=== PATIENT | female | born 1950 | race Caucasian/White ===

== ENCOUNTER 2017-11-17 17:41 | Observation (INO) | payer OTHER ==
[~2017-11-17] VITALS: Ht 152.4 cm; Wt 89.8 kg
[~2017-11-17 17:41] MED LIST: ACEDIPPM; AMLO5 PO; ANASTROZOLE PO; ASPI325EC PO; ASPI81CH PO; ASPI81EC; Acetaminophen650 M1 PO; Anastrozole1 GM PO; BACL10 PO; BETA.05TCA TOP; CIPR250 PO; DULO60 PO; ERGO50000 PO; EYE DROPS LEFTEYE; EZET10 PO; FENO160; FENT25TP TOP; FENT50TP TOP; FISH1000; FLUO20; GABA300 PO; HYDACE10B PO; HYDACE5; HYDACE5 PO; HYDPAM25 PO; IBUP400 PO; METF500; METR500 PO; MULVITA; NAPR500EC PO; NITR100CA PO; OXYACE5T PO; OXYC10TA19 PO; OXYC15ER PO; PREG75 PO; Percocet 5-3251 EACH PO; Prozac20 MG; QUET25 PO; SULTRIDS PO; Silvadene20 GM TOP; TELM40 PO; TIZANIDINE HCL4 MG PO; TRAZ50 PO; UBID100; VALS80; VITB100; Zanaflex4 M1 PO; Zofran Odt8 MG SL
[2017-11-17 18:37] LABS: BASOPHILS ABSOLUTE AUTO 0.08 K/mm3 (0.00-0.23); BASOPHILS PERCENT AUTO 1 % (0-2); EOSINOPHILS PERCENT AUTO 3 % (0-6); Hematocrit 31.8 % (33.0-51.0); Hemoglobin 9.6 g/dL (11.5-16.0); IMMATURE GRAN ABSOLUTE AUTO 0.11 K/mm3 (0.00-0.10); IMMATURE GRAN PERCENT AUTO 1 % (0-1); LYMPHOCYTES ABSOLUTE AUTO 2.22 K/mm3 (0.84-5.20); LYMPHOCYTES PERCENT AUTO 14 % (21-46); MONOCYTES ABSOLUTE AUTO 1.08 K/mm3 (0.16-1.47); MONOCYTES PERCENT AUTO 7 % (4-13); Mean Corpuscular HGB 26.5 pg (26.0-34.0); Mean Corpuscular HGB Conc 30.2 g/dL (31.5-36.5); Mean Corpuscular Volume 88 fL (80-100); Mean Platelet Volume 10.1 fL (9.1-12.4); NEUTROPHILS ABSOLUTE AUTO 11.93 K/mm3 (1.96-9.15); NEUTROPHILS PERCENT AUTO 76 % (41-73); Platelet Count 255 K/mm3 (150-400); RDW Coefficient Variation 15.4 % (11.7-14.2); RDW Standard Deviation 48.9 fL (35.1-46.3); Red Blood Cell Count 3.62 M/mm3 (3.80-5.20); White Blood Cell Count 15.82 K/mm3 (4.00-11.30)
[2017-11-17 18:49] LABS: Alanine Aminotransfer (ALT/SGP 23 U/L (12-78); Albumin, Blood 3.6 g/dL (3.4-5.0); Albumin/Globulin Ratio 1.1 (0.8-1.8); Alk Phos 98 U/L (50-136); Anion Gap 5 mmol/L (6-16); Aspartate Aminotrans (AST/SGOT 22 U/L (12-37); Bilirubin, Total 0.2 mg/dL (0.1-1.0); Blood Urea Nitrogen 25 mg/dL (8-24); Bun/Creatinine Ratio 15.9 (12.0-20.0); CO2, Blood 25 mmol/L (21-32); Calcium, Blood 8.8 mg/dL (8.5-10.1); Chloride, Blood 108 mmol/L (98-108); Creatinine, Blood 1.57 mg/dL (0.40-1.00); Ethanol (Alcohol), Blood, Med <3 mg/dL; Globulin, Blood 3.4 g/dL (2.2-4.0); Glomerular Filtration Rate 35 (60-); Glucose, Blood 122 mg/dL (70-99); Potassium, Blood 5.1 mmol/L (3.5-5.5); Sodium, Blood 138 mmol/L (136-145)
[2017-11-17 19:44] LABS: Source, Urine Clean Catch
[2017-11-17 19:54] LABS: Bilirubin, Urine Neg (Neg); Blood, Urine 2+ (Neg); Glucose Qualitative, Urine Neg (Neg); Ketones, Urine Neg (Neg); Leukocyte Esterase, Urine 2+ (Neg); Nitrite, Urine Neg (Neg); Protein, Urine 2+ (Neg); Urobilinogen, Urine NORM (Normal)
[2017-11-17 20:01] LABS: Appearance, Urine Hazy (Clear); Color, Urine Yellow (P-Yellow)
[2017-11-17 20:03] LABS: Amorphous Light (0-Heavy); Bacteria Many /hpf; Squamous Epithelial Cells Few /hpf (Few); White Blood Cells, Urine 50-100 /hpf (0-5)
[2017-11-18 05:29] LABS: BASOPHILS ABSOLUTE AUTO 0.06 K/mm3 (0.00-0.23); BASOPHILS PERCENT AUTO 0 % (0-2); EOSINOPHILS ABSOLUTE AUTO 0.45 K/mm3 (0.00-0.68); EOSINOPHILS PERCENT AUTO 3 % (0-6); Hematocrit 30.1 % (33.0-51.0); Hemoglobin 9.2 g/dL (11.5-16.0); IMMATURE GRAN ABSOLUTE AUTO 0.06 K/mm3 (0.00-0.10); IMMATURE GRAN PERCENT AUTO 0 % (0-1); LYMPHOCYTES ABSOLUTE AUTO 2.57 K/mm3 (0.84-5.20); LYMPHOCYTES PERCENT AUTO 19 % (21-46); MONOCYTES ABSOLUTE AUTO 1.04 K/mm3 (0.16-1.47); MONOCYTES PERCENT AUTO 8 % (4-13); Mean Corpuscular HGB 26.4 pg (26.0-34.0); Mean Corpuscular HGB Conc 30.6 g/dL (31.5-36.5); Mean Corpuscular Volume 86 fL (80-100); Mean Platelet Volume 9.8 fL (9.1-12.4); NEUTROPHILS ABSOLUTE AUTO 9.59 K/mm3 (1.96-9.15); NEUTROPHILS PERCENT AUTO 70 % (41-73); Platelet Count 206 K/mm3 (150-400); RDW Coefficient Variation 15.5 % (11.7-14.2); RDW Standard Deviation 48.7 fL (35.1-46.3); Red Blood Cell Count 3.49 M/mm3 (3.80-5.20); White Blood Cell Count 13.77 K/mm3 (4.00-11.30)
[2017-11-18 06:03] LABS: Bun/Creatinine Ratio 19.6 (12.0-20.0); Calcium, Blood 8.1 mg/dL (8.5-10.1); Creatinine, Blood 1.12 mg/dL (0.40-1.00)
[2017-11-19] MEDS ORDERED: DULO60 PO (15:23)
[2017-11-19] MEDS ORDERED: FENTANYL1 EAC1 TOP (15:24)
[2017-11-19] MEDS ORDERED: Synthroid25 MCG PO (15:25)
[2017-11-19] MEDS ORDERED: Bactrim Ds Tab1 EACH PO (15:26)
== END 2017-11-19 16:10 | disposition home or self-care (01) ==
LOC: ER 17:41 → MEDS 17:42 → ENPENDDIS 11-19 14:00 → MEDS 11-19 16:10
PROVIDERS: Emergency Medicine; Hospitalist
DX: G92 Toxic encephalopathy (principal); N39.0 Urinary tract infection, site not specified; B96.20 Unspecified Escherichia coli [E. coli] as the cause of diseases classified elsewhere; G89.4 Chronic pain syndrome; I10 Essential (primary) hypertension; M54.9 Dorsalgia, unspecified; N28.9 Disorder of kidney and ureter, unspecified; E11.9 Type 2 diabetes mellitus without complications; E78.5 Hyperlipidemia, unspecified; E03.9 Hypothyroidism, unspecified; T50.995A Adverse effect of other drugs, medicaments and biological substances, initial encounter; Z87.442 Personal history of urinary calculi; Z88.0 Allergy status to penicillin; Z88.1 Allergy status to other antibiotic agents; Z88.7 Allergy status to serum and vaccine; Z88.8 Allergy status to other drugs, medicaments and biological substances; Z79.1 Long term (current) use of non-steroidal anti-inflammatories (NSAID); Z79.891 Long term (current) use of opiate analgesic; Z79.899 Other long term (current) drug therapy
CPT/HCPCS: 36415; 80048; 80053; 81001; 82947; 84443; 85025; 87077; 87086; 87186; 96361; 96365; 96366; 96372; 96375; 96376; 99285; G0378; G0480; J1650; J2185; J2310; J3480; J7030; P9612

== ENCOUNTER 2018-05-05 21:27 | Emergency (ER) | payer OTHER ==
[~2018-05-05] VITALS: Ht 152.4 cm; Wt 88.5 kg
[~2018-05-05 21:27] MED LIST changes: +Bactrim Ds Tab1 EACH PO; +FENTANYL1 EAC1 TOP; +Synthroid25 MCG PO
[2018-05-05] MEDS ORDERED: Fentanyl1 EAC1 TD (23:24)
[2018-05-05] MEDS ORDERED: PREG75 PO (23:26)
[2018-05-05] MEDS ORDERED: OXYC10TA19 PO (23:26)
[2018-05-05] MEDS ORDERED: BACL10 PO (23:27)
[2018-05-05] MEDS ORDERED: TELM40 PO (23:28)
== END 2018-05-06 04:37 | disposition short-term general hospital (02) ==
LOC: ER 21:27
DX: S32.019A Unspecified fracture of first lumbar vertebra, initial encounter for closed fracture (principal); S00.03XA Contusion of scalp, initial encounter; Z88.0 Allergy status to penicillin; Z88.1 Allergy status to other antibiotic agents; Z88.8 Allergy status to other drugs, medicaments and biological substances; Z88.7 Allergy status to serum and vaccine; Z79.899 Other long term (current) drug therapy; Z87.442 Personal history of urinary calculi; Z87.891 Personal history of nicotine dependence; W01.0XXA Fall on same level from slipping, tripping and stumbling without subsequent striking against object, initial encounter
CPT/HCPCS: 70450; 72070; 72100; 72125; 72128; 73502; 96374; 96375; 96376; 99285-25; J1170; J1630; J2405; J3010

== ENCOUNTER 2018-06-16 11:40 | Emergency (ER) | payer OTHER ==
[~2018-06-16] VITALS: Ht 165.1 cm; Wt 108.9 kg
[~2018-06-16 11:40] MED LIST changes: +Fentanyl1 EAC1 TD; +PREG100 PO
[2018-06-16 12:46] LABS: BASOPHILS ABSOLUTE AUTO 0.03 K/mm3 (0.00-0.23); BASOPHILS PERCENT AUTO 0 % (0-2); EOSINOPHILS PERCENT AUTO 1 % (0-6); Hematocrit 27.7 % (33.0-51.0); Hemoglobin 8.2 g/dL (11.5-16.0); IMMATURE GRAN ABSOLUTE AUTO 0.04 K/mm3 (0.00-0.10); IMMATURE GRAN PERCENT AUTO 1 % (0-1); LYMPHOCYTES ABSOLUTE AUTO 1.61 K/mm3 (0.84-5.20); LYMPHOCYTES PERCENT AUTO 20 % (21-46); MONOCYTES ABSOLUTE AUTO 0.99 K/mm3 (0.16-1.47); MONOCYTES PERCENT AUTO 13 % (4-13); Mean Corpuscular HGB 25.2 pg (26.0-34.0); Mean Corpuscular HGB Conc 29.6 g/dL (31.5-36.5); Mean Corpuscular Volume 85 fL (80-100); Mean Platelet Volume 9.7 fL (9.1-12.4); NEUTROPHILS ABSOLUTE AUTO 5.14 K/mm3 (1.96-9.15); NEUTROPHILS PERCENT AUTO 65 % (41-73); Platelet Count 278 K/mm3 (150-400); RDW Coefficient Variation 15.2 % (11.7-14.2); RDW Standard Deviation 46.6 fL (35.1-46.3); Red Blood Cell Count 3.26 M/mm3 (3.80-5.20); White Blood Cell Count 7.91 K/mm3 (4.00-11.30)
[2018-06-16 12:57] LABS: Alanine Aminotransfer (ALT/SGP 17 U/L (12-78); Albumin, Blood 2.9 g/dL (3.4-5.0); Albumin/Globulin Ratio 0.7 (0.8-1.8); Alk Phos 95 U/L (50-136); Anion Gap 8 mmol/L (6-16); Aspartate Aminotrans (AST/SGOT 24 U/L (12-37); Bilirubin, Total 0.2 mg/dL (0.1-1.0); Blood Urea Nitrogen 17 mg/dL (8-24); Bun/Creatinine Ratio 21.2 (12.0-20.0); CO2, Blood 30 mmol/L (21-32); Calcium, Blood 8.6 mg/dL (8.5-10.1); Chloride, Blood 102 mmol/L (98-108); Globulin, Blood 4.3 g/dL (2.2-4.0); Glomerular Filtration Rate >60 (60-); Glucose, Blood 102 mg/dL (70-99); Potassium, Blood 4.9 mmol/L (3.5-5.5); Sodium, Blood 140 mmol/L (136-145); Total Protein, Blood 7.2 g/dL (6.4-8.2)
[2018-06-16 14:09] LABS: Influenza A Negative (NEGATIVE); Influenza B Negative (NEGATIVE)
[2018-06-16 14:22] LABS: Bilirubin, Urine Neg (Neg); Blood, Urine Neg (Neg); Glucose Qualitative, Urine Neg (Neg); Ketones, Urine Neg (Neg); Leukocyte Esterase, Urine Neg (Neg); Nitrite, Urine Neg (Neg); Protein, Urine 2+ (Neg); Urobilinogen, Urine NORM (Normal)
[2018-06-16 14:38] LABS: Appearance, Urine Clear (Clear); Color, Urine Yellow (P-Yellow)
[2018-06-16 14:40] LABS: Bacteria Few /hpf; Squamous Epithelial Cells Mod /hpf (Few)
[2018-06-19] MEDS ORDERED: HYDMOR2 PO (15:19)
[2018-06-20] MEDS ORDERED: NITR100CA PO (16:24)
== END 2018-06-16 17:21 | disposition home or self-care (01) ==
LOC: ER 11:40
PROVIDERS: Emergency Medicine
DX: M54.5 Low back pain (principal); R53.1 Weakness; E11.9 Type 2 diabetes mellitus without complications; Z88.1 Allergy status to other antibiotic agents; Z88.0 Allergy status to penicillin; Z88.8 Allergy status to other drugs, medicaments and biological substances; Z88.7 Allergy status to serum and vaccine; Z79.899 Other long term (current) drug therapy
CPT/HCPCS: 36415; 71046; 80053; 81001; 83605; 85025; 87086; 87804; 96365; 96375; 99284-25; J0696; J1170

== ENCOUNTER 2018-07-19 15:11 | Inpatient (IN) | payer OTHER ==
[~2018-07-19] VITALS: Ht 152.4 cm; Wt 86.4 kg
[~2018-07-19 15:11] MED LIST changes: +ANTI-ITCH 1%-0.28 GM TOP; +Acetaminophen325 M1 PO; +BENGAY113 GM TOP; +BISA10S PR; +CALCIUM 600 +1 EA11 PO; +CALDYPHEN CLEA TOP; +CYAN500 PO; +Colace100 MG PO; -Fentanyl1 EAC1 TD; +Fentanyl1 EAC1 TOP; +Ferrous Sulfat325 MG PO; +HYDMOR2 PO; +Nystatin15 GM TOP
[2018-07-19 16:00] LABS: Hematocrit 28.1 % (33.0-51.0); Hemoglobin 8.1 g/dL (11.5-16.0); Mean Corpuscular HGB 23.7 pg (26.0-34.0); Mean Corpuscular HGB Conc 28.8 g/dL (31.5-36.5); Mean Corpuscular Volume 82 fL (80-100); Mean Platelet Volume 9.5 fL (9.1-12.4); Platelet Count 359 K/mm3 (150-400); RDW Standard Deviation 48.7 fL (35.1-46.3); Red Blood Cell Count 3.42 M/mm3 (3.80-5.20)
[2018-07-19 16:34] LABS: Albumin, Blood 2.9 g/dL (3.4-5.0); Albumin/Globulin Ratio 0.7 (0.8-1.8); BAND PERCENT MAN 11 % (0-8); BASOPHILS PERCENT MAN 0 % (0-2); Bilirubin, Total 0.4 mg/dL (0.1-1.0); Bun/Creatinine Ratio 14.4 (12.0-20.0); Calcium, Blood 9.5 mg/dL (8.5-10.1); Creatinine, Blood 1.8 mg/dL (0.40-1.00); EOSINOPHILS PERCENT MAN 0 % (0-6); Globulin, Blood 4.1 g/dL (2.2-4.0); LYMPHOCYTES ABSOLUTE MAN 2.44 K/mm3 (0.84-5.20); LYMPHOCYTES PERCENT MAN 9 % (21-46); METAMYELOCYTE ABSOLUTE MAN 0.27 K/mm3 (0.00-0.00); METAMYELOCYTE PERCENT MAN 1 % (0-0); MONOCYTES ABSOLUTE MAN 0.81 K/mm3 (0.16-1.47); MONOCYTES PERCENT MAN 3 % (4-13); NEUTROPHILS ABSOLUTE MAN 23.66 K/mm3 (1.96-9.15); Potassium, Blood 5.1 mmol/L (3.5-5.5); SEG NEUTROPHILS PERCENT MAN 76 % (41-73); TOTAL CELLS COUNTED 100
[2018-07-19 17:55] LABS: Source, Urine Catheter
[2018-07-19 18:15] LABS: Blood, Urine 1+ (Neg); Glucose Qualitative, Urine Neg (Neg); Ketones, Urine 1+ (Neg); Leukocyte Esterase, Urine 3+ (Neg); Nitrite, Urine Neg (Neg); Protein, Urine 2+ (Neg); Specific Gravity, Urine 1.015 (1.003-1.022); Urobilinogen, Urine NORM (Normal)
[2018-07-19 18:35] LABS: Appearance, Urine Cloudy (Clear); Bilirubin, Urine 1+ (Neg); Color, Urine Yellow (P-Yellow)
[2018-07-19 18:36] LABS: White Blood Cells, Urine 25-50 /hpf (0-5)
[2018-07-19 18:37] LABS: Amorphous Light (0-Heavy); Bacteria Many /hpf; Squamous Epithelial Cells Many /hpf (Few)
--- NOTE | 2018-07-20 06:00 | NUR ---
SHIFT SUMMARY. ASSUMED CARE OF PT AT 1939. PT WOULD RESPOND TO VERBAL STIMULI AND TOUCH. PT'S VS WERE STABLE. FLUIDS AND ANTIBIOITCS WERE STARTED PER ORDERS. TELE WAS PLACED, SR IN THE 70'S PER NEW VEHICLE SALES CONSULTANT, BP 107/57. L/S CLEAR T/O. PT ON 2L NC W/STATS >90%, PT IS NOT NORMALLY ON O2 AT HOME. BT PRESENT AND HYPERACTIVE, ABD IS SOFT AND NONTENDER TO PALP. 1+ PITTING EDEMA PRESENT TO THE BLE. APROX 2 HOURS AFTER ARRIVING TO THE UNIT THE PT STARTED TO COMPLAIN OF ABD DISCOMFORT, SHE WAS BECOMING MORE ALERT. PT STATED SHE FELT LIKE SHE HAD TO VOID BUT WAS UNABLE TO ON THE BEDPAN. BLADDER SCAN WAS DONE AND SHOWED >700 MLS. PMD WAS CALLED AND ORDERS OBTAINED FOR A STRAIGHT CATH. THIS WAS DONE, PT TOLERATED WELL. A WOUND VAC WAS PLACED PER PMD'S ORDERS TO A WOUND ON THE PT'S BACK, CULTURES WERE OBTAINED AND PICTURES TAKEN. PT COMPLAINS OF EXTREAME PAIN WITH ANY TYPE OF MOVEMENT. PT WAS MEDICATED PER EMAR. PT DENIES ANY CHEST PAIN/PRESSURE, N/V OR SOB. CALL LIGHT IS IN REACH, BED IS LOCKED AND LOW WILL CONTINUE TO MONITOR UNTIL REPORT IS GIVEN.
[2018-07-20 06:19] LABS: Alanine Aminotransfer (ALT/SGP 12 U/L (12-78); Albumin, Blood 2.3 g/dL (3.4-5.0); Albumin/Globulin Ratio 0.6 (0.8-1.8); Alk Phos 79 U/L (50-136); Anion Gap 8 mmol/L (6-16); Aspartate Aminotrans (AST/SGOT 19 U/L (12-37); Bilirubin, Total 0.2 mg/dL (0.1-1.0); Blood Urea Nitrogen 21 mg/dL (8-24); Bun/Creatinine Ratio 20.6 (12.0-20.0); CO2, Blood 26 mmol/L (21-32); Calcium, Blood 8.3 mg/dL (8.5-10.1); Chloride, Blood 107 mmol/L (98-108); Creatinine, Blood 1.02 mg/dL (0.40-1.00); Globulin, Blood 3.6 g/dL (2.2-4.0); Glomerular Filtration Rate 57 (60-); Glucose, Blood 99 mg/dL (70-99); Potassium, Blood 4.3 mmol/L (3.5-5.5); Sodium, Blood 141 mmol/L (136-145); Total Protein, Blood 5.9 g/dL (6.4-8.2); Vancomycin, Random 15.5 ug/mL
[2018-07-20 07:43] LABS: BASOPHILS ABSOLUTE AUTO 0.03 K/mm3 (0.00-0.23); BASOPHILS PERCENT AUTO 0 % (0-2); EOSINOPHILS ABSOLUTE AUTO 0.32 K/mm3 (0.00-0.68); EOSINOPHILS PERCENT AUTO 2 % (0-6); Hematocrit 24.7 % (33.0-51.0); Hemoglobin 7.1 g/dL (11.5-16.0); IMMATURE GRAN ABSOLUTE AUTO 0.09 K/mm3 (0.00-0.10); IMMATURE GRAN PERCENT AUTO 1 % (0-1); LYMPHOCYTES ABSOLUTE AUTO 0.85 K/mm3 (0.84-5.20); LYMPHOCYTES PERCENT AUTO 6 % (21-46); MONOCYTES ABSOLUTE AUTO 0.73 K/mm3 (0.16-1.47); MONOCYTES PERCENT AUTO 5 % (4-13); Mean Corpuscular HGB 23.7 pg (26.0-34.0); Mean Corpuscular HGB Conc 28.7 g/dL (31.5-36.5); Mean Corpuscular Volume 83 fL (80-100); Mean Platelet Volume 9.6 fL (9.1-12.4); NEUTROPHILS ABSOLUTE AUTO 12.38 K/mm3 (1.96-9.15); NEUTROPHILS PERCENT AUTO 86 % (41-73); Platelet Count 262 K/mm3 (150-400); RDW Coefficient Variation 15.8 % (11.7-14.2); RDW Standard Deviation 48.1 fL (35.1-46.3); Red Blood Cell Count 2.99 M/mm3 (3.80-5.20)
--- NOTE | 2018-07-20 12:45 | NUR ---
POSITIVE BLOOD CULTURES This RN called provider to ensure that she is aware of positive blood cultures and current antibiotic regimen. No additional orders.
--- NOTE | 2018-07-20 14:59 | NUR ---
[facility] Assumed care of pt at 0700. Report received from Tenisha ORELLANA. Pt on 2 LPM NC. States she does not wear O2 at home. Pt has wound vac to spine, mid-back. Draining serosanguinous fluid. Dressing C/D/I. Pt refused repositioning this AM. Educated that repositioning is necessary to prevent pressure injury. Pt continued to refuse due to pain. This RN discussed pt's pain with Dr Alvarez, new orders given. After giving pt 2 mg of dilaudid PO, this RN told pt she had more pain medication available. Pt stated she was willing to try repositioning and bed bath; pt declined additional pain medication. Pt was weak and painful for these activities. After repositioning and bed bath, pt was offerred pain meds again. She made a goal to wait until 1615 before requesting more medication. She states she would also like her baclofen at this time. Bed in lowest position. Call light in reach. Pt denies need at this time.
--- NOTE | 2018-07-20 15:27 | NUR ---
TEMPERATURE INCREASE Pt has had a temperature increase since beginning of transfusion. sales support advisor Dionna ruiz. Decision made to continue transfusion because pt was febrile earlier during this shift and there are no additional signs of transfusion reaction at this time.
--- NOTE | 2018-07-20 19:24 | NUR ---
SHIFT SUMMARY No acute changes since last note. Pt has refused repositions since being repositioned on left side around 1330, stating "I am finally comfortable and my pain is tolerable". Report given to Tenisha ORELLANA.
--- NOTE | 2018-07-20 22:48 | NUR ---
PM NOTE. ASSUMED CARE OF PT APROX 1900, PT IS A&Ox4, PLEASENT AND COOPERATEIVE WITH CARE. PT IS DIAPHORETIC AND PALE, PT COMPLAINS OF SEVERE PAIN OF 9/10 AT HER BACK AND ABD. PT IS FEBRILE AT 103.1, TYLENOL WAS GIVEN PER EMAR AND TEMP IS NOW 100.0. TELE INTACT, SR IN THE 80'S PER BUSINESS CONTINUITY PLANNER WITH NO EVENTS, BP 132/52. L/S CLEAR T/O DIM IN THE BASES. NC ON 2L WITH STATS >90%. ABD IS FRIM, SLIGHTLY DISTENED AND TENDER TO PALP IN THE LOWER ABD AREA. BLADDER SCAN WAS DONE, 992 MLS WAS FOUND, STRAIGHT CATH WAS DONE AND 1275 MLS WAS DRAINED. PT STILL STATES SHE HAS SEVERE ABD PAIN IN THAT AREA. 1+ EDEMA TO THE PT'S BLE. WOUND VAC PRESENT AND PATENT TO THE PT'S MID BACK. CALL LIGHT IN REACH, BED IS LOCKED AND LOW WILL CONTINUE TO MONITOR.
--- NOTE | 2018-07-21 05:23 | NUR ---
SHIFT SUMMARY. NO ACUTE CHANGES NOTED, PT'S PAIN IS BETTER CONTROLLED AT THIS TIME, PT DOES NOT APPEAR TO BE DROWSY OR OBTUNDED, PT WAS ABLE TO GET A FEW HOURS OF SLEEP THIS SHIFT. PT HAS TRIED TO VOID MULTIPLE TIMES SINCE THE STRAIGHT CATH BUT HAS BEEN UNSUCESSFUL. PT'S VS HAVE BEEN STABLE, PT DENIES ANY CHEST PAIN/PRESSURE, N/V OR SOB. CALL LIGHT IS IN REACH, BED IS LOCKED AND LOW, WILL CONTINUE TO MONITOR UNTIL REPORT IS GIVEN TO ONCOMING RN.
[2018-07-21 05:56] LABS: BASOPHILS ABSOLUTE AUTO 0.03 K/mm3 (0.00-0.23); BASOPHILS PERCENT AUTO 0 % (0-2); EOSINOPHILS ABSOLUTE AUTO 0.37 K/mm3 (0.00-0.68); EOSINOPHILS PERCENT AUTO 3 % (0-6); Hematocrit 30.9 % (33.0-51.0); IMMATURE GRAN ABSOLUTE AUTO 0.15 K/mm3 (0.00-0.10); IMMATURE GRAN PERCENT AUTO 1 % (0-1); LYMPHOCYTES PERCENT AUTO 8 % (21-46); MONOCYTES ABSOLUTE AUTO 0.87 K/mm3 (0.16-1.47); MONOCYTES PERCENT AUTO 6 % (4-13); Mean Corpuscular HGB 23.6 pg (26.0-34.0); Mean Corpuscular HGB Conc 29.1 g/dL (31.5-36.5); Mean Corpuscular Volume 81 fL (80-100); NEUTROPHILS ABSOLUTE AUTO 11.71 K/mm3 (1.96-9.15); NEUTROPHILS PERCENT AUTO 82 % (41-73); Platelet Count 287 K/mm3 (150-400); RDW Coefficient Variation 15.8 % (11.7-14.2); RDW Standard Deviation 46.1 fL (35.1-46.3); Red Blood Cell Count 3.81 M/mm3 (3.80-5.20); White Blood Cell Count 14.33 K/mm3 (4.00-11.30)
[2018-07-21 06:20] LABS: Anion Gap 6 mmol/L (6-16); Blood Urea Nitrogen 16 mg/dL (8-24); Bun/Creatinine Ratio 19.2 (12.0-20.0); CO2, Blood 29 mmol/L (21-32); Calcium, Blood 8.7 mg/dL (8.5-10.1); Chloride, Blood 105 mmol/L (98-108); Creatinine, Blood 0.84 mg/dL (0.40-1.00); Glomerular Filtration Rate >60 (60-); Glucose, Blood 134 mg/dL (70-99); Potassium, Blood 3.9 mmol/L (3.5-5.5); Sodium, Blood 140 mmol/L (136-145)
--- NOTE | 2018-07-21 07:47 | NUR ---
NURSING PCU DAYSHIFT: Assumed care of pt at approx 0700. A/O, pleasant, cooperative w/care though needs encouragement to participate in ADL's. C/O 8/10 back pain, treating w/meds and positioning. Skin is diaphoretic/clammy, redness noted to groin and skin folds, wound vac in place to surgical site from recent back surgery, set to suction, heels red w/mepilex in place. Tele in place, NSR, no c/o CP/pressure, BP stable prior to a.m. meds, 1+ BLE edema. L/S cta t/o, O2 sat low 90's on 1L NC, denies dyspnea, no noted cough. Abd moderately distended which pt states is normal, tender, BT+, c/o urine retention and requires straight cath as needed. PIV x1, NS TKO. Pt denies any current needs or questions regarding plan of care. Call light in reach and pt is able to use w/o difficulty. Awaiting rounding from PMD, will discuss possible need for PT/OT. Will cont to encourage pt to participate in ADL's, treat pain w/meds as ordered and repositioning. No s/s of acute distress at this time, cont to monitor for changes, call light in reach.
[2018-07-21 15:36] LABS: Vancomycin, Trough 10.3 ug/mL (5.0-10.0)
--- NOTE | 2018-07-21 17:27 | NUR ---
NURSING PCU DAYSHIFT SUMMARY: Pt has been tired/lethargic t/o the shift. Seen by PMD, new d/o received. After a.m. assessment, pt began to c/o chills, temp result of 103.8 at that time w/HR increase to 90's. PMD notified by CN, new d/o received. NS x1 liter infused at 200cc/hr, oral tylenol administered. D/O for MRI received, form completed, pt transported via gurney to imaging though was unable to complete study d/t back discomfort even w/pain management w/medication. Returned to room and assisted back to bed. Pt is afebrile at this time and is resting comfortably. NS currently infusing at 125cc/hr x1 liter. Straight cath and attends change completed. ID consult called and message left on voicemail. Labs scheduled for a.m. Pt denies any current questions/needs, call light in reach, cont to monitor until rpt is given to NOC RN.
--- NOTE | 2018-07-21 23:26 | NUR ---
PM NOTE. ASSUMED CARE OF PT APROX 1900. PT IS A&Ox4. PT'S WOUND VAC DRESSING WAS CHANGED AND A VIDAL PLACED PER PROVIDERS ORDERS. WOUND MEASURMENTS ARE 10CM DEEP 2.5 CM WIDE. PT COMPLAINS OF SEVERE PAIN THAT IS NOT CONROLLED BY THE NARCOTIC PAIN MEDICATIONS, THIS RN EDUATED THE PT ON NON-PHARMA PAIN MANAGEMENT TECHNIQUES SUCH DEEP BREATHING, DISTRACTION, HEAT/ICE, ETC. PT STATED "THOSE DON'T WORK FOR ME." TELE INTACT, SR IN THE 80'S WITH NO CARDIAC EVENTS SINCE ADMIT. BP 112/53, PT TEMP WAS 102.2, PT WAS MEDICATED PER EMAR TEMP CURRENTLY 99.1. 1+ EDEMA PRESENT TO THE PT'S BLE. L/S CLEAR T/O. PT ON 2 L NC WITH STATS >90%. BT PRESENT AND HYPERACTIVE IN ALL QUADRANTS. ABD IS FIRM SLIGHTLY DISTENDED AND TENDER TO PALP. PT HAD NOT HAD A BM SINCE ADMIT. CALL LIGHT IS IN REACH, BED IS LOCKED AND LOW, WILL CONTINUE TO MONITOR.
[2018-07-22 04:31] LABS: Albumin, Blood 2.2 g/dL (3.4-5.0); Anion Gap 10 mmol/L (6-16); Blood Urea Nitrogen 10 mg/dL (8-24); CO2, Blood 25 mmol/L (21-32); Calcium, Blood 8.2 mg/dL (8.5-10.1); Chloride, Blood 108 mmol/L (98-108); Creatinine, Blood 0.77 mg/dL (0.40-1.00); Glomerular Filtration Rate >60 (60-); Glucose, Blood 108 mg/dL (70-99); Phosphorus, Blood 2.7 mg/dL (2.5-4.9); Potassium, Blood 4.1 mmol/L (3.5-5.5); Sodium, Blood 143 mmol/L (136-145)
[2018-07-22 05:50] LABS: BASOPHILS ABSOLUTE AUTO 0.04 K/mm3 (0.00-0.23); BASOPHILS PERCENT AUTO 0 % (0-2); EOSINOPHILS ABSOLUTE AUTO 0.31 K/mm3 (0.00-0.68); EOSINOPHILS PERCENT AUTO 3 % (0-6); Hematocrit 29.4 % (33.0-51.0); Hemoglobin 8.3 g/dL (11.5-16.0); IMMATURE GRAN ABSOLUTE AUTO 0.16 K/mm3 (0.00-0.10); IMMATURE GRAN PERCENT AUTO 2 % (0-1); LYMPHOCYTES ABSOLUTE AUTO 0.95 K/mm3 (0.84-5.20); LYMPHOCYTES PERCENT AUTO 10 % (21-46); MONOCYTES ABSOLUTE AUTO 0.84 K/mm3 (0.16-1.47); MONOCYTES PERCENT AUTO 8 % (4-13); Mean Corpuscular HGB Conc 28.2 g/dL (31.5-36.5); Mean Platelet Volume 10.4 fL (9.1-12.4); NEUTROPHILS PERCENT AUTO 77 % (41-73); Platelet Count 231 K/mm3 (150-400); RDW Coefficient Variation 15.8 % (11.7-14.2); RDW Standard Deviation 48.6 fL (35.1-46.3); Red Blood Cell Count 3.46 M/mm3 (3.80-5.20)
--- NOTE | 2018-07-22 05:52 | NUR ---
SHIFT SUMMARY. NO ACUTE CHANGES NOTED. PT HAS REMAINED AFEBRILE SINCE MEDICATED WITH MOTRIN PER EMAR. PT'S PAIN APPEARS WELL CONTROLLED FOR MOST OF THIS SHIFT DUE TO THE FACT THE PT HAS BEEN SLEEPING PEACEFULLY FOR SEVERAL HOURS. VIDAL IS PATENT, SECURED TO THE BED AND DRAINING TO GRAVITY. PT'S UTI WAS ESTABLISHED ON ADMIT, NO FURTHER U/A WAS SENT DUE TO THIS FACT WHEN THE VIDAL WAS PLACED. PT HAS NOT HAD A BM FOR 3 DAYS. BOWEL CARE WAS STARTED THIS SHIFT, WITH NO RESULTS YET. CALL LIGHT IN REACH, BED IS LOCKED AND LOW, WILL CONTINUE TO MONITOR UNTIL REPORT IS GIVEN TO ONCOMING RN.
[2018-07-22 05:55] LABS: Mean Corpuscular Volume 85 fL (80-100)
--- NOTE | 2018-07-22 15:25 | NUR ---
UPDATE PT HAS BEEN ANXIOUS, FEARFUL, AND TEARFUL ABOUT HAVING AN MRI DONE D/T ANXIETY R/T TIGHT SPACES. MD ORELLANA IN TO SEE PT EARLIER TODAY, DISCUSSED W/ PT THE IMPORTANCE OF HAVING AN MRI DONE TO BETTER EVALUATE SOURCE OF INFECTION FOR PT. AT THIS TIME, AFTER MANY CONVERSATIONS AND HEART TO HEARTS W/ THE PT, THE PT HAS AGREED TO GO AHEAD AND HAVE THE MRI.
--- NOTE | 2018-07-22 15:51 | NUR ---
Hien was tearful and expressed fear of continued illness. she was hoping to see on of our Spiritual Care Volunteers, Tobi, saying "he is the only one who can comfort me." Unfortunately, Tobi is taking some time off. Hien expressed deep sadness over two recent losses. She also stated that she is very fearful of illness. The MRI that is physician ordered has her in a bit of a panic as well. She appears emotionally high-strung and chronically fearful. She admits she has lost her agustin in a God that loves her because of the deaths of loved ones and her illness. Clearly, Hien would benefit from long-term spiritual direction and pet adoption counselor. Through theraputic listening, prayer and affirmation, Hien agreed to an MRI. Shortly after this, her favorite volunteer arrived and visit ended. Competitive Athlete services will remain available.
--- NOTE | 2018-07-22 16:18 | NUR ---
Echocardiogram completed.
--- NOTE | 2018-07-22 19:35 | NUR ---
SHIFT SUMMARY PT A&O X4, CALM AND COOPERATIVE W/ MOMENTS OF ANXIOUSNESS AND TEARS. PT HAS BEEN ANXIOUS ABOUT MRI AND HAD PREVIOUSLY BEEN REFUSING THE PROCEDURE. AFTER MANY CONVERSATIONS AND COMFORT THE PT AGREED TO PROCEED WITH THE MRI. MD HINOJOSA NOTIFIED, AND ORDERES FOR THE MRI WERE REPLACED. PT IN A MUCH CALMER STATE AFTER VISITS WITH SPIRITUAL CARE STAFF MEMBERS TODAY. PT C/O PAIN IN BACK AND HIP T/O DAY, TX'D PER ORDERS AND PROTOCOL. WOUND VAC IN PLACE TO WOUND ON BACK. VIDAL CATH CONTINUES TO BE PATENT AND DRAINING DARK YELLOW URINE. REPORT GIVEN TO NOC SHIFT RN.
--- NOTE | 2018-07-22 21:00 | NUR ---
ASSUMED CARE - PCU NOC SHIFT PATIENT LAYING IN BED WITH WOUND VAC IN PLACE IN MID LOWER BACK (POST SURGICAL WOUND). PATIENT IS ALERT AND ORIENTED TO SELF, LOCATION AND SITUATION - PATIENT IS SWEATY AND LETHARGIC AT START OF SHIFT. ATTEMPTED TO TITRATE OXYGEN OFF PATIENT AND PATIEND DESATURATED TO 88% AT REST - 2 LPM NC REAPPLIED. PATIENT HAS FLAT AFFECT WITH LITTLE MOTIVATION - PATIENT OFFERED SHOWER AND REFUSED. HEART RATE REMAINS NSR IN THE 70-80'S; VSS. PATIENT HAS VIDAL CATH IN PLACE DRAINING CLOUDY YELLOW URINE. POWERGLIDE PLACED IN RIGHT UPPER ARM AT START OF SHIFT BY SARAH Coffman RN. PATIENT MEDICATED PER EMAR FOR PAIN. CALL LIGHT W/I REACH; WILL CONTINUE TO MONITOR.
--- NOTE | 2018-07-23 02:49 | NUR ---
PATIENT TRANSFERED TO CHAIR PATIENT UP AND AMBULATED 4 STEPS FROM BED TO CHAIR. TOLERATED WELL WITH STEADY GAIT BUT PATIENT WAS VERY PAINFUL AND CALLED OUT IN [place] AND [place]. PATIENT ENCOURAGED AND MOTIVATED FROM THIS RN. PATIENT CURRENTLY SITTING UP IN RECLINER WITH FEET ELEVATED. CALL LIGHT W/I REACH AND PATIENT DENIES ANY FURTHER NEEDS AT THIS TIME.
--- NOTE | 2018-07-23 05:43 | NUR ---
PCU NOC SHIFT SUMMARY PATIENT ALERT AND ORIENTED X4 T/O SHIFT. PATIENT REPORTS ONGOING LOWER BACK PAIN T/O SHIFT RELIEVED WITH MEDICATION PER EMAR. PATIENT ENCOURAGED TO AMBULATE, REPOSITION SELF IN BED AND PROVIDE SELF CARE T/O SHIFT. PATIENTS VIDAL CATH REMAINED IN PLACE T/O SHIFT DRAINING TO GRAVITY. RESP E/U AT REST ON 1-2 LPM NC. PATIENT DENIES AN FURTHER NEEDS AT THIS TIME. PATIENT REMAINS SITTING UP IN RECLINER. CALL LIGHT W/I REACH; VSS. WILL CONTINUE TO MONITOR AND GIVE REPORT TO DAYSHIFT RN.
--- NOTE | 2018-07-23 10:42 | NUR ---
PT GONE TO MRI PT PREMEDICATED WITH ONE TIME DOSE OF ATIVAN PER E-MAR AND PAIN MEDICATION PER E-MAR PRIOR TO GOING DOWN TO MRI. PT CRYING OUT IN PAIN WITH TRANSFER FROM CHAIR TO [facility] [place]. PT THEN TRANSFERED BY YAW ON 2L NC TO MRI ROOM @ APPROX 1015 THIS AM BY FIELD SUPPORT TECHNICIAN AND THIS NURSE. MRI STAFF TO NOTIFY WHEN MRI NEAR COMPLETE.
--- NOTE | 2018-07-23 11:42 | NUR ---
MRI COMPLETE PT BACK IN ROOM, SLID OVER FROM GURNEY TO BED BY 4 STAFF MEMBERS W/ SLIDER SHEET. REPORTED BY MRI STAFF THAT PT TOLERATED MRI WELL. PT DROWSY AT THIS TIME, O2 VIA NC INCREASED FROM 2L TO 3L FOR SPO2 > 92%. WILL CONTINUE TO MONITOR AND PROVIDE CARE.
--- NOTE | 2018-07-23 19:04 | NUR ---
SHIFT SUMMARY PT A&O X4. PT DROWSY PORTION OF DAY AFTER RECEVING ATIVAN BEFORE GOING TO MRI. PT CONTINUES TO HAVE HIGH AMOUNT OF PAIN IN BACK, MEDICATED PER EMAR. LUNG SOUNDS CLEAR, SPO2 > 92% ON 2L NC. MONITOR SHOWS NSR. WOUND VAC CLAMPED AT THIS TIME, NEEDING TO BE REDRESSED. WILL CONTINUE TO MONITOR AND PROVIDE CARE UNTIL REPORT OFF TO NOC SHIFT RN.
--- NOTE | 2018-07-23 23:13 | NUR ---
PM NOTE. ASSUMED CARE OF PT APROX 1900. PT IS A&Ox4, PLEASENT AND COOPERATIVE WITH CARE, SHE IS EMOTIONAL AND TEARFUL AT TIMES WELL. PT SUFFERS FROM CHRONIC AND ACUTE PAIN DUE TO RECENT BACK SURGERY AND INFECTION OF THE SURGICAL SITE, WOUND VAC IS ON. TELE INTACT, SR IN THE 80'S PER TICKET CHOPPER ASSEMBLER, BP 138/63. NO EDEMA PRESENT ON ASSESSMENT. L/S CLEAR T/O BUT A LITTLE COARSE IN THE BASES. PT IS ON 2 L NC AT 95%, PT HAD TAKEN HER NC OFF WHEN THIS RN CAME IN THE ROOM, HER O2 SATS WERE MID 70'S TO 80% ON RA. BT PRESENT AND HYPERACTIVE, ABD IS FIRM AND TENDER TO PALP. PT HAS NOT HAD A BM IN 5 DAYS, BOWEL CARE HAS BEEN STARTED. PT'S VIDAL WAS D/C'D PER PROVIDER ORDERS, PT EXPRESSED FEARS OF NOT BEING ABLE TO VOID ONCE THE VIDAL IS OUT, PT HAS BEEN ENCOURAGED TO GET UP INTO A RECLINER CHAIR, INCREASE HER MOBILITY AND START A TOILETING SCHEDULE TO THE BSC NOW THAT HER PAIN APPEARS TO BE IN BETTER CONTROL, PT AGREED. CALL LIGHT IS IN REACH, BED IS LOCKED AND LOW, WILL CONTINUE TO MONITOR.
[2018-07-24 04:01] LABS: Hematocrit 27.8 % (33.0-51.0); Hemoglobin 8.2 g/dL (11.5-16.0); Mean Corpuscular HGB 24.6 pg (26.0-34.0); Mean Corpuscular HGB Conc 29.5 g/dL (31.5-36.5); Mean Corpuscular Volume 83 fL (80-100); Mean Platelet Volume 9.7 fL (9.1-12.4); Platelet Count 296 K/mm3 (150-400); RDW Coefficient Variation 15.9 % (11.7-14.2); RDW Standard Deviation 48.5 fL (35.1-46.3); Red Blood Cell Count 3.34 M/mm3 (3.80-5.20); White Blood Cell Count 9.81 K/mm3 (4.00-11.30)
[2018-07-24 04:17] LABS: Anion Gap 6 mmol/L (6-16); Blood Urea Nitrogen 9 mg/dL (8-24); Bun/Creatinine Ratio 13.5 (12.0-20.0); CO2, Blood 32 mmol/L (21-32); Chloride, Blood 103 mmol/L (98-108); Creatinine, Blood 0.67 mg/dL (0.40-1.00); Glomerular Filtration Rate >60 (60-); Glucose, Blood 135 mg/dL (70-99); Potassium, Blood 4.1 mmol/L (3.5-5.5); Sodium, Blood 141 mmol/L (136-145)
[2018-07-24 04:31] LABS: BAND PERCENT MAN 6 % (0-8); BASOPHILS ABSOLUTE MAN 0.09 K/mm3 (0.00-0.23); BASOPHILS PERCENT MAN 1 % (0-2); EOSINOPHILS ABSOLUTE MAN 0.39 K/mm3 (0.00-0.68); EOSINOPHILS PERCENT MAN 4 % (0-6); LYMPHOCYTES ABSOLUTE MAN 0.88 K/mm3 (0.84-5.20); LYMPHOCYTES PERCENT MAN 9 % (21-46); MONOCYTES ABSOLUTE MAN 0.49 K/mm3 (0.16-1.47); MONOCYTES PERCENT MAN 5 % (4-13); MYELOCYTE ABSOLUTE MAN 0.09 K/mm3 (0.00-0.00); MYELOCYTE PERCENT MAN 1 % (0-0); NEUTROPHILS ABSOLUTE MAN 7.84 K/mm3 (1.96-9.15); SEG NEUTROPHILS PERCENT MAN 74 % (41-73); TOTAL CELLS COUNTED 100
--- NOTE | 2018-07-24 06:26 | NUR ---
SHIFT SUMMARY. NO ACUTE CHANGES NOTED THIS SHIFT. PT WAS ABLE TO GET OUT OF BED WITH A MINIMAL 1 PERSON ASSIST TO THE BSC, PT WAS ABLE TO VOID POST D/C OF VIDAL AND HAD AN EXTRA LARGE BM. WOUND VAC DRESSING WAS CHAGNED PER ORDERS. PT DENIES ANY CHEST PAIN/PRESSURE OR N/V AND PAIN WAS MEDICATED PER EMAR. NEW RED RAISED RASH IS NOTICED ON THE PT'S LEFT OUTER THIGH. CHARGE NURSE MADE AWARE. CALL LIGHT IS IN REACH, BED IS LOCKED AND LOW, WILL CONTINUE TO MONITOR UNTIL REPORT IS GIVEN TO ONCOMING RN.
--- NOTE | 2018-07-24 17:19 | NUR ---
SHIFT SUMMARY PT A&O X4, CALM AND COOPERATIVE, TEARFUL AT TIMES. PT CONTINUES TO STRUGGLE W/ HIGH PAIN LEVELS. PT TX'D PER EMAR, AND ENCOURAGED TO REPOSITION AND MOVE ABLE. PT GETTING UP W/ 1 PERSON SBA W/ FWW. PT USING BSC. PT TOLERATING MOVEMENT WELL THIS AM, WITH RETURN TO [place] AND CRYING OUT W/ MOVEMENT THIS EVENING. PT STATES PAIN TO BE IN MID-LOWER BACK AND R HIP. WOUND VAC IN PLACE TO LOWER MID BACK. MONITOR SHOWS NSR, HR 70'S-90'S. SPO2 > 92% ON 2L NC. WILL CONTINUE TO MONITOR AND PROVIDE CARE UNTIL REPORT OFF TO NOC SHIFT RN.
--- NOTE | 2018-07-24 22:33 | NUR ---
PM NOTE. ASSUMED CARE OF PT APROX 1900. PT IS A&Ox4, PLEASENT AND COOPERATEIVE WITH CARE BUT PT REQUIRES THERAPTUIC COMMUNICATION AND ENCOURAGEMENT WHEN IT COMES TO PERFORMING ANY ADLS, AMBULATION, BED MOBILITY ETC FOR HERSELF. WOUND VAC IS INTACT, PT STATES HER BACK PAIN IS AN 8/10 AT ALL TIMES NO MATTER WHAT. TELE INTACT, SR IN THE 80'S PER CABLE HOOKER. BP 118/51. L/S CLEAR T/O. BT PRESENT AND HYPERACTIVE. ABD IS SOFT AND NONTENDER TO PALP. CALL LIGHT IN REACH, BED IS LOCKED AND LOW WILL CONTINUE TO MONITOR.
--- NOTE | 2018-07-25 03:43 | NUR ---
UPDATE... PT ABLE TO AMBULATE TO SHOWER W/HELP. PT WAS ABLE TO PARTICIPATE WITH SOME ADLS DURING SHOWER. WOUND VAC DRESSING WAS CHANGED PER ORDERS AFTER SHOWER, PT TOLERATED SHOWER AND DRESSING CHANGE WELL.
[2018-07-25 05:18] LABS: BASOPHILS ABSOLUTE AUTO 0.03 K/mm3 (0.00-0.23); BASOPHILS PERCENT AUTO 0 % (0-2); EOSINOPHILS ABSOLUTE AUTO 0.43 K/mm3 (0.00-0.68); EOSINOPHILS PERCENT AUTO 4 % (0-6); Hematocrit 27.4 % (33.0-51.0); IMMATURE GRAN ABSOLUTE AUTO 0.36 K/mm3 (0.00-0.10); IMMATURE GRAN PERCENT AUTO 4 % (0-1); LYMPHOCYTES ABSOLUTE AUTO 1.37 K/mm3 (0.84-5.20); LYMPHOCYTES PERCENT AUTO 14 % (21-46); MONOCYTES ABSOLUTE AUTO 0.57 K/mm3 (0.16-1.47); MONOCYTES PERCENT AUTO 6 % (4-13); Mean Corpuscular HGB 24.4 pg (26.0-34.0); Mean Corpuscular HGB Conc 29.2 g/dL (31.5-36.5); Mean Corpuscular Volume 84 fL (80-100); Mean Platelet Volume 9.8 fL (9.1-12.4); NEUTROPHILS ABSOLUTE AUTO 6.91 K/mm3 (1.96-9.15); NEUTROPHILS PERCENT AUTO 72 % (41-73); Platelet Count 315 K/mm3 (150-400); Red Blood Cell Count 3.28 M/mm3 (3.80-5.20); White Blood Cell Count 9.67 K/mm3 (4.00-11.30)
[2018-07-25 05:35] LABS: Anion Gap 5 mmol/L (6-16); Blood Urea Nitrogen 9 mg/dL (8-24); Bun/Creatinine Ratio 12.9 (12.0-20.0); CO2, Blood 35 mmol/L (21-32); Calcium, Blood 9.1 mg/dL (8.5-10.1); Chloride, Blood 101 mmol/L (98-108); Glomerular Filtration Rate >60 (60-); Glucose, Blood 204 mg/dL (70-99); Potassium, Blood 3.4 mmol/L (3.5-5.5); Sodium, Blood 141 mmol/L (136-145)
--- NOTE | 2018-07-25 06:34 | NUR ---
SHIFT SUMMARY. NO ACUTE CHANGES OVER NIGHT, PT HAS BEEN MORE ACTIVE AND MOBILE THIS SHIFT BY BEING IN THE RECLINER, UP TO THE BSC AND TAKING A SHOWER. WOUND VAC WAS CHANGED PER ORDERS, NEW PICTURES AND MEASURMENTS OBTAINED (SEE CHART). PT DENIES ANY CHEST PAIN/PRESSURE, N/V OR SOB. PT REQUIRES O2 AT 2L NC WHILE IN BED BUT HER STATS ARE >90% WHEN UP IN THE CHAIR OR ON THE SIDE OF THE BED. PT HAS BEEN MEDICATED FOR PAIN PER EMAR. PT HAS BEEN AFEBRILE THIS SHIFT. VS HAVE BEEN STABLE. CALL LIGHT IN REACH, BED IS LOCKED AND LOW, WILL CONTINUE TO MONITOR UNTIL REPORT IS GIVEN TO ONCOMING RN.
[2018-07-25 13:52] LABS: Hematocrit 29.5 % (33.0-51.0); Hemoglobin 8.5 g/dL (11.5-16.0); Mean Corpuscular HGB Conc 28.8 g/dL (31.5-36.5); Mean Corpuscular Volume 83 fL (80-100); Mean Platelet Volume 9.9 fL (9.1-12.4); Platelet Count 328 K/mm3 (150-400); RDW Standard Deviation 48.8 fL (35.1-46.3); Red Blood Cell Count 3.54 M/mm3 (3.80-5.20); White Blood Cell Count 9.87 K/mm3 (4.00-11.30)
--- NOTE | 2018-07-25 18:26 | NUR ---
PATIENT HAS BEEN IN MUCH BETTER MODD THIS SHIFT WITH NO EPISODES OF TEARS. SHE HAS HAD PAIN AND HAS BEEN MEDICATED PER EMAR. SHE IS A ONE ASSIST TO THE BSC AND USES THE CALL LIGHT APPROPRIATLY. NO COMPLAINTS OF SOB OR NVD
--- NOTE | 2018-07-26 01:52 | NUR ---
WOUND VAC DRESSING CHAGE: PT DECLINING TO HAVE WOUND VAC DRESSING CHANGED AT THIS TIME. PT VERBALIZED CONCERNS R/T FREQUENCY OF DRESSING CHANGES. PT CONCERNS DISCUSSED W/JELLY MAKER. ORDER CLARIFIED. PT EDUCATED ON INC IN FREQUENCY OF CHANGES R/T CURRENT INFECTION OF WOUND SITE. PT DECLINING TO HAVE DRESSING CHANGED AT THIS TIME, REQ TO DISCUSS W/DAY HOSPITALIST AND DR ORELLANA. JELLY MAKER NOTIFIED.
[2018-07-26 04:16] LABS: BASOPHILS ABSOLUTE AUTO 0.04 K/mm3 (0.00-0.23); BASOPHILS PERCENT AUTO 0 % (0-2); EOSINOPHILS ABSOLUTE AUTO 0.34 K/mm3 (0.00-0.68); EOSINOPHILS PERCENT AUTO 3 % (0-6); Hematocrit 28.3 % (33.0-51.0); Hemoglobin 8.4 g/dL (11.5-16.0); IMMATURE GRAN ABSOLUTE AUTO 0.37 K/mm3 (0.00-0.10); IMMATURE GRAN PERCENT AUTO 4 % (0-1); LYMPHOCYTES PERCENT AUTO 16 % (21-46); MONOCYTES ABSOLUTE AUTO 0.61 K/mm3 (0.16-1.47); MONOCYTES PERCENT AUTO 6 % (4-13); Mean Corpuscular HGB 24.2 pg (26.0-34.0); Mean Corpuscular HGB Conc 29.7 g/dL (31.5-36.5); Mean Corpuscular Volume 82 fL (80-100); Mean Platelet Volume 9.5 fL (9.1-12.4); NEUTROPHILS ABSOLUTE AUTO 7.56 K/mm3 (1.96-9.15); NEUTROPHILS PERCENT AUTO 71 % (41-73); Platelet Count 345 K/mm3 (150-400); RDW Coefficient Variation 16.2 % (11.7-14.2); Red Blood Cell Count 3.47 M/mm3 (3.80-5.20); White Blood Cell Count 10.62 K/mm3 (4.00-11.30)
--- NOTE | 2018-07-26 04:21 | NUR ---
PT HAD NO ACUTE CHANGES T/O NIGHT; VSS. SATS >90% ON RA. WOUND VAC INTACT W/VERY SCANT SS DRNG, NO REDNESS NOTED AROUND WOUND. PT DECLINED DRESSING CHANGE UNTIL DISCUSSION W/DAY MD. PT REMAINS PAINFUL W/MVMT. PAIN MGD W/PO PAIN MEDS W/REP RELIEF. PT ENC TO AMBULATE AND ELEVATE EXT WHILE IN BED, MINIMALLY MOTIVATED. PT DENIED N/V, IS VOIDING URINE W/O DIFFICULTY. PT USING CALL LIGHT FOR ASSISTANCE, WILL CONT TO [facility] UNTIL REP GIVEN TO ONCOMING RN.
[2018-07-26 04:33] LABS: Anion Gap 6 mmol/L (6-16); Blood Urea Nitrogen 7 mg/dL (8-24); Bun/Creatinine Ratio 11.5 (12.0-20.0); CO2, Blood 34 mmol/L (21-32); Calcium, Blood 9.2 mg/dL (8.5-10.1); Chloride, Blood 103 mmol/L (98-108); Creatinine, Blood 0.61 mg/dL (0.40-1.00); Glomerular Filtration Rate >60 (60-); Glucose, Blood 123 mg/dL (70-99); Potassium, Blood 3.8 mmol/L (3.5-5.5); Sodium, Blood 143 mmol/L (136-145)
--- NOTE | 2018-07-26 16:07 | NUR ---
SUMMARY PT IS A/O X4, PLEASANT/COOPERATIVE AFFECT. UP W FWW TO CHAIR, AMBULATE IN [place] W PHYTHER, SBA. SHE HAS PAIN W MOVEMENTS, PRN DILAUDID & BACLOFEN FOR RELIEF/CONTROL. MID BACK SURG SITE W WOUND VAC DRSG, WOUND CARE & DRSG CHANGED TODAY. DR ORELLANA IN TO REVIEW HER CASE, NO NEW ORDERS. DR EDDY STATE PT WILL TRANSFER TO SNF WHEN APPROP., [employer] PERSONALITY WORKING ON CASE. VSS.
--- NOTE | 2018-07-26 23:05 | NUR ---
PT C/O 04/19 BACK PAIN AND WAS MEDICATED W/DILAUDID 4MG PO FOR IMPROVEMENT TO 02/16 WHICH PT STATES "IS GOOD IT GETS". SBA PROVIDED TO BSC W/BETTER PAIN CONTROL. PT MOVES VERY SLOWLY AND MATICULOUSLY D/T WOUND VAC AND ASSOCIATED PAIN. SHE WAS RETURNED TO BED AND DENIED FURTHER NEEDS.
--- NOTE | 2018-07-27 03:40 | NUR ---
PT WAS MEDICATED AGAIN FOR BACK PAIN W/DILAUDID AND REPORTS TYPICAL RELIEF OF 8. SHE DENIED FURTHER PAIN MED NEEDS AND APPEARS TO BE RESTING COMFORTABLY AT THIS TIME.
--- NOTE | 2018-07-27 06:58 | NUR ---
SUMMARY: A/OX4, CALLS APPROPRIATELY AND SBA TO CHAIR/BSC W/FWW. PT PAINFUL W/ MOBILITY AND REQUIRED PRN DILUADID APPROX Q4H FOR PT REPORTED PAIN CONTROL THAT NEVER IMPROVES MORE THEN 02/16. MID BACK SX SITE W/WOUND VAC DX REMAINS C/D/I, DX CHANGED ON 07/27/18. PT REFUSED COLACE D/T BM'S DURING DAY SHIFT. NO ACUTE CHANGES, VSS/AFEBRILE. WILL MONITOR AND REPORT TO DAY RN.
--- NOTE | 2018-07-27 07:35 | NUR ---
Inital assessment: Pt laying in bed. Painful with any movement. LS diminished, HR reg, BT positive. Rates her pain 8/10 in her low back. States it is also a spasm type pain. VSS. Will medicate for pain per orders. SBA out of bed to BSC then chair. Pt very slow to move but able to do all the movement herseft with minimal SBA. Once in chair after void Pt appears more comfortable and denies needs. Wound vac dressing to lower back intact. Call light in reach. will mnoitor.
--- NOTE | 2018-07-27 11:50 | NUR ---
UPDATE: Transfer to medical floor orders. Pt informed that she would be moving to room 357. Pt stated "I was wondering if they were going to move me out of here." Denies questions. Pt familar with medical floor and seems almost excited to move. Stable at this time. Will report to Medical RNAnais.
--- NOTE | 2018-07-27 13:36 | NUR ---
TRANSFER PT TRANSFERRED TO ROOM 357 VIA WHEELCHAIR FROM U. PT ALERT AND ORIENTED X3. PT ORIENTED TO ROOM. NO REQUESTS AT THIS TIME. PT SITTING UP IN RECLINER, LOOKING AT HER PHONE. CALL LIGHT IN REACH. WILL CONTINUE TO MONITOR.
--- NOTE | 2018-07-27 17:07 | NUR ---
SHIFT SUMMARY PT WAS A TRANSFER FROM PCU THIS AFTERNOON. MEDICATED FOR PAIN X1 PER EMAR. PT UP TO BATHROOM WITH STAND-BY ASSIST. WOUND VAC IN PLACE-C/D/I. PT HAS HAD NO FURTHER COMPLAINTS OR REQUESTS THIS AFTERNOON. PT SITTING UP IN THE CHAIR AT THIS TIME, WATCHING TV. CALL LIGHT IN REACH. WILL CONTINUE TO MONITOR AND REPORT TO ONCOMING RN.
--- NOTE | 2018-07-28 06:17 | NUR ---
SHIFT SUMMARY: PT C/O UNCONTROLLED PAIN T/O THE SHIFT, REPORTING MUSCLE SPASMS IN THE MID-LOW BACK. PT REPORTS EXPERIENCING THESE OFTEN. RECIEVES 4M PO DILAUDID Q3H, WHICH OFFERS SOME RELIEF. REINFORCED WOUND VAC DRESSING D/T AIR LEAK. WOUNDVAC IS PATENT, C/D/I. DRAINING A MODERATE AMOUNT OF SEROSANGUINEOUS FLUID. DRESSING CHANGES ARE SCHEDULED EVERY M, W, F. PG IN R ARM IS PATENT, C/D/I. PT UP TO BATHROOM SEVERAL TIMES DURING THE SHIFT, 1 PERS SBA c FWW. DENIES SOB, TOLERATES RA. NO OTHER ACUTE CHANGES TO REPORT, WILL CONT TO MONITOR AND PROVIDE CARE UNTIL PRESUMED BY ONCOMING RN.
--- NOTE | 2018-07-28 12:33 | NUR ---
PATIENT STATES HER PAIN IS AT AN 8. STATES IT HAS NOT BEEN BETTER THAN A 7 SINCE THE SURGERY.
--- NOTE | 2018-07-28 18:13 | NUR ---
SHIFT SUMMARY PATIENT CONTINUES TO HAVE CHRONIC BACK PAIN. WORKED WITH THERAPY. THERAPY STATED SHE IS VERY GOOD AT WALKING WITH A WALKER AND IS ENCOURAGED TO AMBULATE WITH STAFF MUCH POSSIBLE. WOUND VAC DRESSING CHANGED. STATES MORE COMFORTABLE.
[2018-07-29 04:48] LABS: BASOPHILS ABSOLUTE AUTO 0.05 K/mm3 (0.00-0.23); BASOPHILS PERCENT AUTO 0 % (0-2); EOSINOPHILS ABSOLUTE AUTO 0.39 K/mm3 (0.00-0.68); EOSINOPHILS PERCENT AUTO 3 % (0-6); Hematocrit 29.4 % (33.0-51.0); Hemoglobin 8.4 g/dL (11.5-16.0); IMMATURE GRAN ABSOLUTE AUTO 0.13 K/mm3 (0.00-0.10); IMMATURE GRAN PERCENT AUTO 1 % (0-1); LYMPHOCYTES ABSOLUTE AUTO 1.74 K/mm3 (0.84-5.20); LYMPHOCYTES PERCENT AUTO 15 % (21-46); MONOCYTES ABSOLUTE AUTO 0.56 K/mm3 (0.16-1.47); MONOCYTES PERCENT AUTO 5 % (4-13); Mean Corpuscular HGB 23.9 pg (26.0-34.0); Mean Corpuscular HGB Conc 28.6 g/dL (31.5-36.5); Mean Corpuscular Volume 84 fL (80-100); Mean Platelet Volume 9.6 fL (9.1-12.4); NEUTROPHILS ABSOLUTE AUTO 8.57 K/mm3 (1.96-9.15); NEUTROPHILS PERCENT AUTO 75 % (41-73); Platelet Count 323 K/mm3 (150-400); RDW Coefficient Variation 16.5 % (11.7-14.2); RDW Standard Deviation 49.9 fL (35.1-46.3); Red Blood Cell Count 3.52 M/mm3 (3.80-5.20); White Blood Cell Count 11.44 K/mm3 (4.00-11.30)
[2018-07-29 05:03] LABS: Anion Gap 7 mmol/L (6-16); Blood Urea Nitrogen 14 mg/dL (8-24); Bun/Creatinine Ratio 20.5 (12.0-20.0); CO2, Blood 32 mmol/L (21-32); Calcium, Blood 9.1 mg/dL (8.5-10.1); Chloride, Blood 100 mmol/L (98-108); Creatinine, Blood 0.68 mg/dL (0.40-1.00); Glomerular Filtration Rate >60 (60-); Glucose, Blood 235 mg/dL (70-99); Potassium, Blood 4.8 mmol/L (3.5-5.5); Sodium, Blood 139 mmol/L (136-145)
--- NOTE | 2018-07-29 06:11 | NUR ---
SHIFT SUMMARY PATIENT SLEPT OFF AND ON THROUGH THE NIGHT. HAS CHRONIC BACK PAIN AND CURRENTLY HAS WOUND VAC IN PLACE ON DEHISCED SPINAL INCISION. WAKES UP AND IS REQUESTING MEDICATIONS ROUGHLY EVERY 4 HOURS. IS RESTING IN A RECLINER AND APPEARS TO BE MORE COMFORTABLE THEN WHEN LAYING IN BED. IS ABLE TO WALK WITH ASSISTANCE TO THE BATHROOM DUE TO WOUND VAC. WILL CONTINUE TO MONITOR UNTIL SHIFT HANDOFF.
--- NOTE | 2018-07-29 12:47 | NUR ---
Palliative Care Initial visit: Pt is A&O and reports a pain level of 8/10 in her back. She reports her pain has not been below an 8/10 during her hospital stay. Pt appears anxious. Allowed Pt to vent frustrations and concerns. She states feeling overwhelmed with information given from other disciplines and ancillary support. She states feeling worried about her cats. She expresses appreciation for her grand daughter who comes and provides care for her when she is at home. Pt reports that she wishes to change her code status to DNR. Offered to help with POLST and Pt is agreeable later today. Spoke with Pt's nurse Stephanie and plan of care discussed. Pt is requiring frequent use of dilaudid for breakthrough pain. Stephanie agrees that pain regimen change should be considered. Plan is to discuss increasing fentanyl patch for pain management with hospitalist and increasing Pt's lyrica. Pt's nurse is agreeable in offering ibuprofen as well.
--- NOTE | 2018-07-29 12:51 | NUR ---
met with pt regarding goals and needs. pt terfull but engaged. Pt has non verbal cues of pain. will offer warmth and aromatherapy daughters bringing diversion. pt taking increased po breakthrough meds will update physician on medications.
--- NOTE | 2018-07-29 14:33 | NUR ---
Visited with Pt. Pt filled out POLST formed with this RN at bedside to answer any questions she may have. Called and spoke with Dr Cali and reported POLST formed is ready for his signature. Discussed pain management with Dr Cali. Dr Cali reports he will increase Pt's Lyrica to TID as she takes at home. If pain is still unmanged in the next 24 hours he will consider increasing Fentanyl patch or other options.
--- NOTE | 2018-07-30 19:17 | NUR ---
PATIENT SHOWERED THIS SHIFT. WOUND VAC DRESSING CHANGED. MEDICATED FOR PAIN, NO ACUTE CHANGES THIS SHIFT
--- NOTE | 2018-07-31 18:57 | NUR ---
PT HAS CHRONIC BACK PAIN WITH WOUND VAC, MEDICATED PER EMAR. PT SLEPT MOST OF THE MORNING. PT IS 1 PRSN WITH FWW. PT STAYS IN RECLINER DUE TO POSITION OF WOUND VAC. PT REPOSITIONS SELF. MEDICATED PER EMAR. CALL IGHT IN REACH. WILL CALL FOR ASSISTANCE.
--- NOTE | 2018-08-01 04:56 | NUR ---
SHIFT SUMMARY NO CHANGES THIS SHIFT. MEDICATED FOR PAIN PRN PER EMAR. PT UP IN THE RECLINER FOR MOST OF THE SHIFT. WOUND VAC IN PLACE PATENT AND DRAINING. ASSESSMENT UNCHANGED. WILL CONTINUE TO MONITOR AND REPORT TO ONCOMING RN.
--- NOTE | 2018-08-01 18:27 | NUR ---
SHIFT SUMMARY PATIENT A&O X4. PATIENT HAS HAD COMPLAINTS OF CHRONIC BACK PAIN THROUGOUT THE SHIFT. RN MEDICATED PER EMAR. DENIES ANY SOB OR NAUSEA. WOUND VAC IN PLACE TO THE MID-LOW BACK, DRAINING SEROSANGUINEOUS FLUID. WAS LAST CHANGED THURSDAY, NEXT CHANGE Thursday08/02/18. PATIENT UP IN CHAIR THROUGHOUT THE SHIFT. SAEFTY PRECAUTIONS IN PLACE. NO ACUTE CHANGES. RN WILL CONTINUE TO MONITOR.
--- NOTE | 2018-08-02 04:35 | NUR ---
VSS, AFEBRILE, A/O, SBA TO BR, POWERGLIDE R UA, SL EXCEPT FOR IVABX, WOUND VAC TO LOWER BACK, SLEEPS IN CHAIR, PLACEMENT ISSUE
--- NOTE | 2018-08-02 17:07 | NUR ---
PT AOX4 AND COOPERATIVE OF CARE. PT TREATED FOR BACK PAIN PER EMAR. THIS SEEMS TO KEEP PAIN TO A TOLERABLE LEVEL. PT NEEDED WOUND VAC CHANGED TODAY. THIS WAS DONE AFTER PT HAD A SHOWER WOUND LOOKS PINK NO DRAINAGE NOTED. WOUND VAC PLACE AND PT TOLERATED WELL. PT HAS WORKED WITH PT AND OT TODAY AND IS DOING WELL WALKING. NO DISTRESS AT THIS TIME.
--- NOTE | 2018-08-03 05:14 | NUR ---
08/03/18 0500 MEDICAtED TWICE FOR PAIN THIS SHIFT. WOUND VAC INTACT TO LOW BACK. WAS UP TO BR WITH HELP AND WALKER FOR VOIDING AND ONE LARGE BROWN BM. PT SITS UP IN LOUNGE CHAIR ALL SHIFT PER PAIN TOLERANCE. SHE RECLINES CHAIR PRN TO SLEEP.
[2018-08-03 05:35] LABS: Hematocrit 30.2 % (33.0-51.0); Hemoglobin 8.6 g/dL (11.5-16.0); Mean Corpuscular HGB 23.8 pg (26.0-34.0); Mean Corpuscular HGB Conc 28.5 g/dL (31.5-36.5); Mean Corpuscular Volume 83 fL (80-100); Mean Platelet Volume 9.4 fL (9.1-12.4); Platelet Count 350 K/mm3 (150-400); RDW Coefficient Variation 16.8 % (11.7-14.2); RDW Standard Deviation 51.3 fL (35.1-46.3); Red Blood Cell Count 3.62 M/mm3 (3.80-5.20); White Blood Cell Count 10.88 K/mm3 (4.00-11.30)
[2018-08-03 06:11] LABS: Anion Gap 6 mmol/L (6-16); Blood Urea Nitrogen 15 mg/dL (8-24); Bun/Creatinine Ratio 20.5 (12.0-20.0); CO2, Blood 32 mmol/L (21-32); Calcium, Blood 9.2 mg/dL (8.5-10.1); Chloride, Blood 101 mmol/L (98-108); Creatinine, Blood 0.73 mg/dL (0.40-1.00); Glomerular Filtration Rate >60 (60-); Glucose, Blood 151 mg/dL (70-99); Potassium, Blood 4.5 mmol/L (3.5-5.5); Sodium, Blood 139 mmol/L (136-145)
--- NOTE | 2018-08-03 17:21 | NUR ---
NO ACUTE CHANGES WITH THIS PATIENT, SHE WAS MEDICATED FOR PAIN PER EMAR. NEW MEDICATION PATCH TO BE PLACED. WOUND VAC WAS CHANGED YESTERDAY NEXT CHANGE IS TOMORROW 08/04/18. CURRENTLY C/D/I. UP WITH A 1 PERSON MINIMAL ASSIST. PATIENT IS ALERTX4 AND ANSWERS ALL QUESTIONS APPROPRIATELY. CALL LIGHT IS IN REACH
--- NOTE | 2018-08-04 07:39 | NUR ---
08/04/18 0550 VITALS STABLE. UNEVENTFUL NIGHT. MEDICATED FOR PAIN SEVERAL TIMES THIS SHIFT. WOUND VAC INTACT TO BACK.
--- NOTE | 2018-08-04 17:59 | NUR ---
SHIFT SUMMARY MN HAS HAD NO ACUTE CHANGES THIS SHIFT, MEDICATED 2X FOR PAIN, NO OTHER COMPLAINTS OF ANY KIND. PT HAS BEEN UP TO RECLINER T/O SHIFT, IS EATING DINNER AT THIS TIME, WILL CONT TO MONITOR UNTIL REPORT GIVEN TO PRABHAKAR ORELLANA.
--- NOTE | 2018-08-05 06:39 | NUR ---
SHIFT SUMMARY PT IS A&O X 4, AND SBA IN THE ROOM. SHE COMPLAINED OF CHRONIC BACK PAIN, FOR WHICH SHE WAS MEDICATED X 2 WITH MA DILAUDID, AND X1 WITH PRN TYLENOL. SHE DENIED ANY NAUSEA OR SOB. WOUND VAC ON LOWER BACK WOUND SHOWED MINIMAL OUTPUT AND DRAINAGE DURING THE NIGHT. VITAL SIGNS STABLE. NO OTHER ACUTE CHANGES IN PT CONDITION NOTED. WILL CONTINUE TO MONITOR AND TREAT PER EMAR UNTIL HAND OFF TO DAY SHIFT.
--- NOTE | 2018-08-05 17:34 | NUR ---
SHIFT SUMMARY PT HAS HAD NO ACUTE CHANGES THIS SHIFT, MEDICATED 2X FOR PAIN, 2X FOR ITCHING, NO OTHER COMPLAINTS OF ANY KIND. PT REMAINED IN RELCLINER T/O SHIFT AND IS UP IN RECLINER AT THIS TIME, WILL CONT TO MONITOR UNTIL REPORT GIVEN TO PRABHAKAR RN.
[2018-08-06 04:51] LABS: BASOPHILS ABSOLUTE AUTO 0.07 K/mm3 (0.00-0.23); BASOPHILS PERCENT AUTO 1 % (0-2); EOSINOPHILS ABSOLUTE AUTO 0.46 K/mm3 (0.00-0.68); EOSINOPHILS PERCENT AUTO 4 % (0-6); Hematocrit 28.8 % (33.0-51.0); Hemoglobin 8.3 g/dL (11.5-16.0); IMMATURE GRAN ABSOLUTE AUTO 0.19 K/mm3 (0.00-0.10); IMMATURE GRAN PERCENT AUTO 2 % (0-1); LYMPHOCYTES ABSOLUTE AUTO 1.77 K/mm3 (0.84-5.20); LYMPHOCYTES PERCENT AUTO 16 % (21-46); MONOCYTES ABSOLUTE AUTO 0.95 K/mm3 (0.16-1.47); MONOCYTES PERCENT AUTO 8 % (4-13); Mean Corpuscular HGB 23.9 pg (26.0-34.0); Mean Corpuscular HGB Conc 28.8 g/dL (31.5-36.5); Mean Corpuscular Volume 83 fL (80-100); Mean Platelet Volume 9.3 fL (9.1-12.4); NEUTROPHILS ABSOLUTE AUTO 7.81 K/mm3 (1.96-9.15); NEUTROPHILS PERCENT AUTO 70 % (41-73); Platelet Count 345 K/mm3 (150-400); RDW Coefficient Variation 16.8 % (11.7-14.2); RDW Standard Deviation 50.5 fL (35.1-46.3); Red Blood Cell Count 3.47 M/mm3 (3.80-5.20); White Blood Cell Count 11.25 K/mm3 (4.00-11.30)
[2018-08-06 05:24] LABS: Anion Gap 6 mmol/L (6-16); Blood Urea Nitrogen 14 mg/dL (8-24); Bun/Creatinine Ratio 19.1 (12.0-20.0); CO2, Blood 31 mmol/L (21-32); Calcium, Blood 8.9 mg/dL (8.5-10.1); Chloride, Blood 100 mmol/L (98-108); Creatinine, Blood 0.73 mg/dL (0.40-1.00); Glomerular Filtration Rate >60 (60-); Glucose, Blood 201 mg/dL (70-99); Magnesium, Blood 1.9 mg/dL (1.6-2.4); Potassium, Blood 4.3 mmol/L (3.5-5.5); Sodium, Blood 137 mmol/L (136-145)
--- NOTE | 2018-08-06 06:10 | NUR ---
SHIFT SUMMARY PT IS A&O X 4, AND SBA IN THE ROOM. PT HAS A WOUND ON HER LOWER BACK THAT IS CONNECTED TO A WOUND VAC. WOUND HAD MINIMAL OUTPUT DURING THE NIGHT. SHE WAS MEDICATED X 2 WITH PO DILAUDED FOR BACK PAIN. PT DENIED ANY COMPLAINTS OF NAUSEA OR SOB. VITAL SIGNS STABLE. NO OTHER ACUTE CHANGES IN PT CONDITION NOTED DURING THE NIGHT. WILL CONTINUE TO MONITOR AND TREAT PER EMAR UNTIL HAND OFF TO DAY SHIFT.
--- NOTE | 2018-08-06 18:15 | NUR ---
SHIFT SUMMARY PATIENT PLEASANT TODAY. ONE PERSON ASSIST. PATIET ON ANTIBIOTICS. SHE HAD A SHOWER TODAY AND HER WOUND VAC WAS CHANGED. SHE HAS HAD GOOD PAIN MANAGEMENT TODAY. RESTING COMFORTABLY. WAS GIVEN ONE DOSE OF XANAX TO PROVIDE SOME ANXIETY RELIEF. SHE DENIES ANY DISCOMFORT AT THIS TIME.
--- NOTE | 2018-08-07 04:54 | NUR ---
SHIFT SUMMARY A/O X3, ABLE TO MAKE NEEDS KNOWN. COOPERATIVE WITH CARE. CALLS AND ANSWERS QUESTIONS APPROPRIATELY. PAIN REMAINS @ AN 8/10 THROUGHOUT NIGHT; NOT MUCH CHANGE AFTER DILAUDID ADMINISTRATION. STATED ABLE TO SLEEP APPROXIMATELY 4 HOURS LAST NIGHT. POWERGLIDE TUBING AND DRESSING CHANGED; STERILE PROCEDURE IMPLEMENTED. NO ACUTE CHANGES OVERNIGHT. REMAINS IN RECLINER. CALL LIGHT AND BELONGINGS WITHIN REACH. WCTM. REPORT TO ONCOMING RN.
--- NOTE | 2018-08-07 16:01 | NUR ---
SHIFT SUMMARY PATIENT HAS BEEN PLEASANT TODAY. PATIENT INDEPENDENT IN THE ROOM MINUS THE ABILITY TO CARRY THE WOUND VAC. YESTERDAY THE WOUND VAC WAS CHANGED, PICTURES WERE TAKEN AND PLACED IN THE CHART. HER POWERGLIDE DRESSING WAS CHANGED YESTERDAY WELL. NO ACUTE CONCERNS AT THIS TIME. PATIENT GETTING TEARFUL ABOUT GETTING OUT OF THE HOSPITAL. SHE STATES SHE IS WORRIED THAT SHE WONT HAVE ENOUGH HELP BUT ALSO WANTS TO GET OUT OF THE HOSPITAL.
--- NOTE | 2018-08-08 05:50 | NUR ---
SHIFT SUMMARY A/O X3, ABLE TO MAKE NEEDS KNOWN. COOPERATIVE WITH CARE. CALLS AND ANSWERS QUESTIONS APPROPRIATELY. PAIN LEVEL REMAINS @ 8/10 THROUGHOUT SHIFT. MEDICATED PER EMAR FOR PAIN. APPEARED TO REST FOR SHORT PERIOD OF TIME. NO ACUTE CHANGES NOTED OVERNIGHT. UP TO BATHROOM WITH SBA. VSS/AFEBRILE. RECLINED IN CHAIR. CALL LIGHT AND BELONGINGS WITHIN REACH. WCTM. REPORT TO ONCOMING RN.
--- NOTE | 2018-08-08 18:27 | NUR ---
SHIFT SUMMARY PATIENT VERY UNCOMFORTABLE WITH THE IDEA OF GOIG HOME. SHE STATES THAT CASE MANAGEMENT DID NOT INFORM HER OF HER DISCHARGE PLAN AT THIS TIME AND INSTEAD TOLD HER FAMILY AND FRIENDS. THIS HAS CAUSED DRAMA IN HER FAMILY LIFE, HER PERSONAL LIFE ,AND SHE FEELS THAT THIS HAS BEEN IMPORTANT IN HER LIFE TO BE ABLE TO GIVE ALL THE RIGHT INFORMATION. SHE EXPRESSED THIS CONCERN TO THE DOCTOR AND TO THE CHARGE NURSE. SHE DENIES ANY EXCRUCIATING PAIN, IT IS BEING MONITORED AND MANAGED WELL WITH THE BACLOFEN AND THE DILAUDID AT THIS TIME. FOR NOW HER PSYCHOSOCIAL IS HER MAIN GOAL AND TO MAKE SURE SHE STAYS INFORMED.
--- NOTE | 2018-08-09 05:21 | NUR ---
SHIFT SUMMARY A/O X3, ABLE TO MAKE NEEDS KNOWN. COOPERATIVE WITH CARE. CALLS AND ANSWERS QUESTIONS APPROPRIATELY. PAIN LEVEL REMAINS @ 8/10 THROUGHOUT SHIFT. MEDICATED PER EMAR. APPEARED TO REST OFF AND ON THROUGHOUT SHIFT IN RECLINER CHAIR. NO ACUTE CHANGES OVERNIGHT. VSS/AFEBRILE. UP TO BATHROOM WITH FWW AND SBA. CALL LIGHT AND BELONGINGS WITHIN REACH. WCTM. REPORT TO ONCOMING RN.
[2018-08-09] MEDS ORDERED: BENGAY113 GM TOP (10:12)
[2018-08-09] MEDS ORDERED: MIRALAX17 GM PO (10:14)
[2018-08-09] MEDS ORDERED: LIDOCAINE1 EACH TOP (10:14)
[2018-08-09] MEDS ORDERED: POTA10T PO (10:15)
[2018-08-09] MEDS ORDERED: Benadryl Itch28.3 G1 TOP (10:22)
--- NOTE | 2018-08-09 10:48 | NUR ---
PT UP TO BR. SAT DOWN ON TOILET AND PINCHED HER POSTERIOR THIGH BETWEEN SEAT AND TOILET. SM AMT BLEEDING NOTED. CLEANED AND BANDAGE PLACED WITH ANTIBIOTIC OINTMENT.
--- NOTE | 2018-08-09 11:48 | NUR ---
WOUND VAC DRESSING AND PACKING REMOVED. PT ASSISTED INTO SHOWER. W.V. DRESSING AND PACKING TO BE REPLACED AFTER SHOWER.
--- NOTE | 2018-08-09 14:32 | NUR ---
DISCHARGE DISCHARGE INSTRUCTIONS, FOLLOW UP APPOINTMENTS AND MEDICATION LIST REVIEWED WITH PT. QUESTIONS/CONCERNS ANSWERED. WOUND VAC DRESSING REPLACED BY WEED THINNER VICKY CORRIGAN. PT VERBALLY INDICATED UNDERSTANDING OF ALL INSTRUCTIONS RECEIVED. HARD SCRIP FOR DILAUDID PO AND FENTANYL PATCH GIVEN TO PT, AND OTHER SCRIPS FAXED TO [facility] AT [facility] PER PT PREFERENCE. PT TRANSPORTED HOME VIA [facility].
== END 2018-08-09 14:37 | disposition home health service (06) | DRG 871 ==
LOC: DELPENDDIS → ER 15:11 → PCU 15:12 → MEDS 07-20 09:01 → PCU 07-20 09:01 → MEDS 07-27 12:57 → ENPENDDIS 08-04 11:23 → MEDS 08-09 14:37
PROVIDERS: Emergency Medicine; Family Medicine; Internal Medicine; ADMIT Internal Medicine
PROC: 30233N1 Transfusion of Nonautologous Red Blood Cells into Peripheral Vein, Percutaneous Approach (ICD-10-PCS; principal; 2018-07-20)
DX: A41.51 Sepsis due to Escherichia coli [E. coli] (principal); G92 Toxic encephalopathy; N17.9 Acute kidney failure, unspecified; N39.0 Urinary tract infection, site not specified; I95.9 Hypotension, unspecified; E86.0 Dehydration; E11.9 Type 2 diabetes mellitus without complications; I35.0 Nonrheumatic aortic (valve) stenosis; T40.2X1A Poisoning by other opioids, accidental (unintentional), initial encounter; Y92.009 Unspecified place in unspecified non-institutional (private) residence as the place of occurrence of the external cause; I10 Essential (primary) hypertension; D72.829 Elevated white blood cell count, unspecified; A41.4 Sepsis due to anaerobes; G89.29 Other chronic pain; M54.5 Low back pain; E66.9 Obesity, unspecified; F32.9 Major depressive disorder, single episode, unspecified; T40.605A Adverse effect of unspecified narcotics, initial encounter; D50.9 Iron deficiency anemia, unspecified; B37.2 Candidiasis of skin and nail; B96.20 Unspecified Escherichia coli [E. coli] as the cause of diseases classified elsewhere; R33.9 Retention of urine, unspecified; F41.9 Anxiety disorder, unspecified; R09.02 Hypoxemia; M62.838 Other muscle spasm; T81.31XD Disruption of external operation (surgical) wound, not elsewhere classified, subsequent encounter; Z87.442 Personal history of urinary calculi; Z85.3 Personal history of malignant neoplasm of breast; Z79.899 Other long term (current) drug therapy; Z88.8 Allergy status to other drugs, medicaments and biological substances; Z88.1 Allergy status to other antibiotic agents; Z88.0 Allergy status to penicillin; Z88.7 Allergy status to serum and vaccine; Z68.37 Body mass index [BMI] 37.0-37.9, adult; Z90.13 Acquired absence of bilateral breasts and nipples; Z90.49 Acquired absence of other specified parts of digestive tract; Z98.890 Other specified postprocedural states
CPT/HCPCS: 36415; 36430; 51701; 51702; 71045; 71046; 72131; 72157; 72158; 80048; 80053; 80069; 80202; 81001; 83605; 83735; 85025; 85027; 85651; 86140; 86850; 86900; 86901; 86923; 87040; 87070; 87075; 87077; 87086; 87186; 87205; 93005; 93010; 93306; 96365; 96366; 96367; 96375; 97110; 97116; 97162; 97165; 97530; 97535; 99285-25; A9577; C1751; G0378; G8978; G8979; G8987; G8988; J0692; J0696; J1650; J1940; J2060; J2310; J3370; J7030; J7050; J7120; P9016

== ENCOUNTER 2019-02-08 11:50 | Day surgery (SDC) | payer OTHER ==
[~2019-02-08 11:50] MED LIST changes: +Benadryl Itch28.3 G1 TOP; +LIDOCAINE1 EACH TOP; +MIRALAX17 GM PO; +POTA10T PO
== END 2019-02-08 23:41 | disposition home or self-care (01) ==
LOC: WOUND 11:50
PROC: 0HD6XZZ Extraction of Back Skin, External Approach (ICD-10-PCS; principal; 2019-02-08)
DX: T81.89XA Other complications of procedures, not elsewhere classified, initial encounter (principal); L98.429 Non-pressure chronic ulcer of back with unspecified severity; I10 Essential (primary) hypertension; E11.9 Type 2 diabetes mellitus without complications; M19.90 Unspecified osteoarthritis, unspecified site; E87.5 Hyperkalemia; G47.30 Sleep apnea, unspecified; Z88.1 Allergy status to other antibiotic agents; Z88.2 Allergy status to sulfonamides; Z88.7 Allergy status to serum and vaccine; Z88.8 Allergy status to other drugs, medicaments and biological substances; Z91.048 Other nonmedicinal substance allergy status; Z87.891 Personal history of nicotine dependence
CPT/HCPCS: G0463

== ENCOUNTER 2019-02-17 12:22 | Day surgery (SDC) | payer OTHER | END 2019-02-17 22:56 | disposition home or self-care (01) | LOC: WOUND 12:22 | DX: T81.89XA Other complications of procedures, not elsewhere classified, initial encounter (principal); E11.622 Type 2 diabetes mellitus with other skin ulcer; L98.422 Non-pressure chronic ulcer of back with fat layer exposed; M96.1 Postlaminectomy syndrome, not elsewhere classified; E11.40 Type 2 diabetes mellitus with diabetic neuropathy, unspecified; I10 Essential (primary) hypertension; D64.9 Anemia, unspecified; E78.5 Hyperlipidemia, unspecified; G47.30 Sleep apnea, unspecified | CPT/HCPCS: G0463 ==

== ENCOUNTER 2019-02-24 00:22 | Day surgery (SDC) | payer OTHER | END 2019-02-24 22:54 | disposition home or self-care (01) | LOC: WOUND 00:22 | DX: T81.89XA Other complications of procedures, not elsewhere classified, initial encounter (principal); E11.622 Type 2 diabetes mellitus with other skin ulcer; L98.422 Non-pressure chronic ulcer of back with fat layer exposed; M96.1 Postlaminectomy syndrome, not elsewhere classified; E11.40 Type 2 diabetes mellitus with diabetic neuropathy, unspecified; I10 Essential (primary) hypertension; D64.9 Anemia, unspecified; E78.5 Hyperlipidemia, unspecified; G47.30 Sleep apnea, unspecified ==

== ENCOUNTER 2019-03-03 00:18 | Day surgery (SDC) | payer OTHER | END 2019-03-03 22:50 | disposition home or self-care (01) | LOC: WOUND 00:18 | PROC: 0HD6XZZ Extraction of Back Skin, External Approach (ICD-10-PCS; principal; 2019-03-03) | DX: L98.422 Non-pressure chronic ulcer of back with fat layer exposed (principal); M96.1 Postlaminectomy syndrome, not elsewhere classified; I10 Essential (primary) hypertension; E11.9 Type 2 diabetes mellitus without complications; M19.90 Unspecified osteoarthritis, unspecified site; E78.5 Hyperlipidemia, unspecified; H35.30 Unspecified macular degeneration; G47.30 Sleep apnea, unspecified; Z85.3 Personal history of malignant neoplasm of breast ==

== ENCOUNTER 2019-03-10 14:17 | Day surgery (SDC) | payer OTHER | END 2019-03-10 22:43 | disposition home or self-care (01) | LOC: WOUND 14:17 | DX: T81.89XA Other complications of procedures, not elsewhere classified, initial encounter (principal); E11.622 Type 2 diabetes mellitus with other skin ulcer; L98.422 Non-pressure chronic ulcer of back with fat layer exposed; M96.1 Postlaminectomy syndrome, not elsewhere classified; E11.40 Type 2 diabetes mellitus with diabetic neuropathy, unspecified; I10 Essential (primary) hypertension; E78.5 Hyperlipidemia, unspecified; G47.30 Sleep apnea, unspecified ==

== ENCOUNTER 2019-03-17 13:30 | Day surgery (SDC) | payer OTHER | END 2019-03-17 22:59 | disposition home or self-care (01) | LOC: WOUND 13:30 | DX: T81.89XA Other complications of procedures, not elsewhere classified, initial encounter (principal); L98.422 Non-pressure chronic ulcer of back with fat layer exposed; M96.1 Postlaminectomy syndrome, not elsewhere classified; I10 Essential (primary) hypertension; G47.30 Sleep apnea, unspecified; E78.5 Hyperlipidemia, unspecified | CPT/HCPCS: G0463 ==

== ENCOUNTER 2019-03-24 00:36 | Day surgery (SDC) | payer OTHER | END 2019-03-24 23:21 | disposition home or self-care (01) | LOC: WOUND 00:36 | DX: T81.89XA Other complications of procedures, not elsewhere classified, initial encounter (principal); E11.622 Type 2 diabetes mellitus with other skin ulcer; L97.422 Non-pressure chronic ulcer of left heel and midfoot with fat layer exposed; M96.1 Postlaminectomy syndrome, not elsewhere classified; I10 Essential (primary) hypertension | CPT/HCPCS: G0463 ==

== ENCOUNTER 2019-08-18 18:16 | Emergency (ER) | payer OTHER ==
[~2019-08-18] VITALS: Ht 152.4 cm; Wt 84.4 kg
[2019-08-18] MEDS ORDERED: Dilaudid 2 mg Ta2 MG PO (18:54)
== END 2019-08-18 18:55 | disposition home or self-care (01) ==
LOC: ER 18:16
DX: G89.29 Other chronic pain (principal); M54.9 Dorsalgia, unspecified; Z88.0 Allergy status to penicillin; Z88.8 Allergy status to other drugs, medicaments and biological substances; Z88.1 Allergy status to other antibiotic agents; Z88.7 Allergy status to serum and vaccine; Z79.891 Long term (current) use of opiate analgesic; Z79.899 Other long term (current) drug therapy; Z85.3 Personal history of malignant neoplasm of breast; E11.9 Type 2 diabetes mellitus without complications; Z87.891 Personal history of nicotine dependence
CPT/HCPCS: 99283

== ENCOUNTER → 2020-03-15 | Outpatient (CLI) | payer OTHER ==
[~2020-03-15] MED LIST changes: +Dilaudid 2 mg Ta2 MG PO
[2020-03-16 15:17] LABS: Protein, Urine Quantitative 23.6 mg/dL (0.0-11.9)
[2020-03-16 15:20] LABS: Microalbumin, Urine Quant. 45.6 mg/L (0.000-20.000)
== END | disposition home or self-care (01) ==
LOC: LAB 18:00 → LAB SHORT 18:00 → LAB FUT 03-14 11:20
PROVIDERS: Internal Medicine Nephrology
DX: N18.2 Chronic kidney disease, stage 2 (mild) (principal); D63.1 Anemia in chronic kidney disease; N25.81 Secondary hyperparathyroidism of renal origin; E87.6 Hypokalemia; E55.9 Vitamin D deficiency, unspecified; E78.00 Pure hypercholesterolemia, unspecified; R76.9 Abnormal immunological finding in serum, unspecified; R94.5 Abnormal results of liver function studies; R94.6 Abnormal results of thyroid function studies; R73.09 Other abnormal glucose
CPT/HCPCS: 81050; 82043; 82570; 84156

== ENCOUNTER 2020-08-26 20:13 | Emergency (ER) | payer OTHER ==
[~2020-08-26] VITALS: Ht 170.2 cm; Wt 99.8 kg
[2020-08-26 20:45] LABS: Source, Urine Catheter
[2020-08-26 20:50] LABS: BASOPHILS ABSOLUTE AUTO 0.06 K/mm3 (0.00-0.23); BASOPHILS PERCENT AUTO 1 % (0-2); EOSINOPHILS PERCENT AUTO 1 % (0-6); Hematocrit 36.7 % (33.0-51.0); Hemoglobin 11.3 g/dL (11.5-16.0); IMMATURE GRAN ABSOLUTE AUTO 0.04 K/mm3 (0.00-0.10); IMMATURE GRAN PERCENT AUTO 0 % (0-1); LYMPHOCYTES ABSOLUTE AUTO 2.19 K/mm3 (0.84-5.20); LYMPHOCYTES PERCENT AUTO 21 % (21-46); MONOCYTES ABSOLUTE AUTO 0.77 K/mm3 (0.16-1.47); MONOCYTES PERCENT AUTO 7 % (4-13); Mean Corpuscular HGB Conc 30.8 g/dL (31.5-36.5); Mean Corpuscular Volume 88 fL (80-100); Mean Platelet Volume 9.8 fL (9.1-12.4); NEUTROPHILS ABSOLUTE AUTO 7.37 K/mm3 (1.96-9.15); NEUTROPHILS PERCENT AUTO 70 % (41-73); Platelet Count 253 K/mm3 (150-400); RDW Coefficient Variation 14.4 % (11.7-14.2); RDW Standard Deviation 46.4 fL (35.1-46.3); Red Blood Cell Count 4.19 M/mm3 (3.80-5.20); White Blood Cell Count 10.53 K/mm3 (4.00-11.30)
[2020-08-26 20:56] LABS: Bilirubin, Urine Neg (Neg); Blood, Urine 3+ (Neg); Glucose Qualitative, Urine Neg (Neg); Ketones, Urine Neg (Neg); Leukocyte Esterase, Urine 2+ (Neg); Nitrite, Urine Neg (Neg); Protein, Urine 3+ (Neg); Specific Gravity, Urine 1.025 (1.003-1.022); Urobilinogen, Urine NORM (Normal)
[2020-08-26 21:05] LABS: Appearance, Urine Hazy (Clear); Color, Urine Yellow (P-Yellow)
[2020-08-26 21:06] LABS: Amorphous Mod (0-Heavy); Bacteria Mod /hpf; Mucus Light (0-Heavy); Red Blood Cells, Urine 0-2 /hpf (0-2); Squamous Epithelial Cells Few /hpf (Few); White Blood Cells, Urine 50-100 /hpf (0-5)
[2020-08-26 21:14] LABS: Alanine Aminotransfer (ALT/SGP 45 U/L (12-78); Alk Phos 88 U/L (50-136); Anion Gap 6 mmol/L (6-16); Aspartate Aminotrans (AST/SGOT 81 U/L (12-37); Bilirubin, Total 0.3 mg/dL (0.1-1.0); Blood Urea Nitrogen 18 mg/dL (8-24); CO2, Blood 29 mmol/L (21-32); Calcium, Blood 9.6 mg/dL (8.5-10.1); Chloride, Blood 107 mmol/L (98-108); Creatinine, Blood 0.67 mg/dL (0.40-1.00); Glomerular Filtration Rate >60 (60-); Glucose, Blood 131 mg/dL (70-99); Potassium, Blood 3.6 mmol/L (3.5-5.5); Sodium, Blood 142 mmol/L (136-145)
[2020-08-26] MEDS ORDERED: Bactrim Ds Tab1 EACH PO (21:20)
== END 2020-08-26 21:36 | disposition home or self-care (01) ==
LOC: ER 20:13
PROVIDERS: Emergency Medicine
DX: N39.0 Urinary tract infection, site not specified (principal); Z88.1 Allergy status to other antibiotic agents; Z88.0 Allergy status to penicillin; Z88.8 Allergy status to other drugs, medicaments and biological substances; Z88.7 Allergy status to serum and vaccine; Z79.899 Other long term (current) drug therapy; Z87.891 Personal history of nicotine dependence
CPT/HCPCS: 36415; 80053; 81001; 85025; 87086; 99284-25; A9270; P9612

== ENCOUNTER 2020-09-28 09:55 | Day surgery (SDC) | payer OTHER ==
[~2020-09-28] VITALS: Ht 144.8 cm; Wt 83.4 kg
[2020-09-28] MEDS ORDERED: LOSA25 (11:55)
[2020-09-28] MEDS ORDERED: PERCOCET 10-321 EAC5 (11:55)
--- NOTE | 2020-09-28 12:17 | NUR ---
09/28/20 1217 Trudi Larose S ATTEMPT X1 IN RIGHT HAND. ALSO SUCCESSFUL IV CN IN RIGHT HAND.
== END 2020-09-28 13:55 | disposition home or self-care (01) ==
LOC: ORSCSDS 09:55
PROVIDERS: Orthopaedic Surgery
PROC: 01N50ZZ Release Median Nerve, Open Approach (ICD-10-PCS; principal; 2020-09-28 12:00)
DX: G56.01 Carpal tunnel syndrome, right upper limb (principal); I10 Essential (primary) hypertension; F41.8 Other specified anxiety disorders; Z79.899 Other long term (current) drug therapy
CPT/HCPCS: 82947; J2250; J3010; J7120

== ENCOUNTER 2020-11-23 09:35 | Day surgery (SDC) | payer OTHER ==
[~2020-11-23] VITALS: Ht 144.8 cm; Wt 74.3 kg
[~2020-11-23 09:35] MED LIST changes: +LOSA25; +PERCOCET 10-321 EAC5
--- NOTE | 2020-11-23 12:08 | NUR ---
11/23/20 1208 Gladys Mark COMPLETE IN OR BY DR. GRANDE, PT TOW.
== END 2020-11-23 13:02 | disposition home or self-care (01) ==
LOC: ORSCSDS 09:35
PROVIDERS: Orthopaedic Surgery
PROC: 01N50ZZ Release Median Nerve, Open Approach (ICD-10-PCS; principal; 2020-11-23 11:30)
DX: G56.02 Carpal tunnel syndrome, left upper limb (principal); I10 Essential (primary) hypertension; E11.9 Type 2 diabetes mellitus without complications; Z79.899 Other long term (current) drug therapy; E66.9 Obesity, unspecified; Z68.35 Body mass index [BMI] 35.0-35.9, adult
CPT/HCPCS: 82947; J0690; J2250; J2704; J3010; J7120

== ENCOUNTER 2021-03-10 19:28 | Emergency (ER) | payer OTHER ==
[~2021-03-10] VITALS: Ht 142.2 cm; Wt 120.2 kg
[2021-03-10 20:59] LABS: BASOPHILS ABSOLUTE AUTO 0.14 K/mm3 (0.00-0.23); BASOPHILS PERCENT AUTO 1 % (0-2); EOSINOPHILS ABSOLUTE AUTO 0.35 K/mm3 (0.00-0.68); EOSINOPHILS PERCENT AUTO 3 % (0-6); Hematocrit 40.3 % (33.0-51.0); Hemoglobin 12.4 g/dL (11.5-16.0); IMMATURE GRAN ABSOLUTE AUTO 0.07 K/mm3 (0.00-0.10); IMMATURE GRAN PERCENT AUTO 1 % (0-1); LYMPHOCYTES ABSOLUTE AUTO 3.32 K/mm3 (0.84-5.20); LYMPHOCYTES PERCENT AUTO 24 % (21-46); MONOCYTES ABSOLUTE AUTO 1.04 K/mm3 (0.16-1.47); MONOCYTES PERCENT AUTO 8 % (4-13); Mean Corpuscular HGB Conc 30.8 g/dL (31.5-36.5); Mean Corpuscular Volume 88 fL (80-100); Mean Platelet Volume 9.8 fL (9.1-12.4); NEUTROPHILS ABSOLUTE AUTO 8.85 K/mm3 (1.96-9.15); NEUTROPHILS PERCENT AUTO 64 % (41-73); Platelet Count 300 K/mm3 (150-400); RDW Coefficient Variation 15.3 % (11.7-14.2); RDW Standard Deviation 48.9 fL (35.1-46.3); White Blood Cell Count 13.77 K/mm3 (4.00-11.30)
[2021-03-10 21:19] LABS: Alanine Aminotransfer (ALT/SGP 56 U/L (12-78); Albumin, Blood 4.2 g/dL (3.4-5.0); Alk Phos 81 U/L (50-136); Anion Gap 6 mmol/L (6-16); Aspartate Aminotrans (AST/SGOT 85 U/L (12-37); Bilirubin, Total 0.4 mg/dL (0.1-1.0); Blood Urea Nitrogen 19 mg/dL (8-24); Bun/Creatinine Ratio 23.3 (12.0-20.0); CO2, Blood 26 mmol/L (21-32); CPK Creatine Kinase 92 U/L (26-193); Calcium, Blood 10.2 mg/dL (8.5-10.1); Chloride, Blood 106 mmol/L (98-108); Creatinine, Blood 0.82 mg/dL (0.40-1.00); Globulin, Blood 4.3 g/dL (2.2-4.0); Glomerular Filtration Rate >60 (60-); Glucose, Blood 119 mg/dL (70-99); Potassium, Blood 3.9 mmol/L (3.5-5.5); Sodium, Blood 138 mmol/L (136-145); Total Protein, Blood 8.5 g/dL (6.4-8.2)
== END 2021-03-10 22:38 | disposition home or self-care (01) ==
LOC: ER 19:28
PROVIDERS: Physician Assistant
DX: S06.0X9A Concussion with loss of consciousness of unspecified duration, initial encounter (principal); S00.01XA Abrasion of scalp, initial encounter; S20.211A Contusion of right front wall of thorax, initial encounter; I10 Essential (primary) hypertension; E11.9 Type 2 diabetes mellitus without complications; Z88.1 Allergy status to other antibiotic agents; Z88.0 Allergy status to penicillin; Z91.09 Other allergy status, other than to drugs and biological substances; Z88.7 Allergy status to serum and vaccine; Z87.891 Personal history of nicotine dependence; W18.30XA Fall on same level, unspecified, initial encounter
CPT/HCPCS: 36415; 70450; 80053; 82550; 85025; 93005; 93010; 99284-25

== ENCOUNTER → 2021-07-11 | Outpatient (CLI) | payer OTHER ==
[2021-07-11 19:27] LABS: BASOPHILS ABSOLUTE AUTO 0.12 K/mm3 (0.00-0.23); BASOPHILS PERCENT AUTO 1 % (0-2); EOSINOPHILS ABSOLUTE AUTO 0.33 K/mm3 (0.00-0.68); EOSINOPHILS PERCENT AUTO 3 % (0-6); Hematocrit 40.6 % (33.0-51.0); Hemoglobin 12.9 g/dL (11.5-16.0); IMMATURE GRAN ABSOLUTE AUTO 0.09 K/mm3 (0.00-0.10); IMMATURE GRAN PERCENT AUTO 1 % (0-1); LYMPHOCYTES ABSOLUTE AUTO 2.93 K/mm3 (0.84-5.20); LYMPHOCYTES PERCENT AUTO 23 % (21-46); MONOCYTES PERCENT AUTO 8 % (4-13); Mean Corpuscular HGB 27.7 pg (26.0-34.0); Mean Corpuscular HGB Conc 31.8 g/dL (31.5-36.5); Mean Corpuscular Volume 87 fL (80-100); NEUTROPHILS ABSOLUTE AUTO 8.05 K/mm3 (1.96-9.15); NEUTROPHILS PERCENT AUTO 64 % (41-73); RDW Coefficient Variation 14.4 % (11.7-14.2); RDW Standard Deviation 46.2 fL (35.1-46.3); Red Blood Cell Count 4.66 M/mm3 (3.80-5.20); White Blood Cell Count 12.52 K/mm3 (4.00-11.30)
[2021-07-11 19:45] LABS: Mean Platelet Volume 10.7 fL (9.1-12.4); Platelet Count 203 K/mm3 (150-400)
[2021-07-11 20:12] LABS: Alanine Aminotransfer (ALT/SGP 32 U/L (12-78); Albumin, Blood 3.9 g/dL (3.4-5.0); Albumin/Globulin Ratio 0.8 (0.8-1.8); Alk Phos 85 U/L (50-136); Anion Gap 9 mmol/L (6-16); Aspartate Aminotrans (AST/SGOT 30 U/L (12-37); Bilirubin, Total 0.2 mg/dL (0.1-1.0); Blood Urea Nitrogen 20 mg/dL (8-24); Bun/Creatinine Ratio 24.7 (12.0-20.0); CO2, Blood 23 mmol/L (21-32); Calcium, Blood 10.7 mg/dL (8.5-10.1); Chloride, Blood 106 mmol/L (98-108); Creatinine, Blood 0.81 mg/dL (0.40-1.00); Ferritin, Serum 33 ng/mL (8-252); Globulin, Blood 4.6 g/dL (2.2-4.0); Glomerular Filtration Rate >60 (60-); Glucose, Blood 137 mg/dL (70-99); Iron Serum 78 ug/dL (50-170); Percent Saturation 19.5 % (15.0-50.0); Potassium, Blood 4.3 mmol/L (3.5-5.5); Sodium, Blood 138 mmol/L (136-145); Total Iron Binding Capacity 400 ug/dL (250-450); Total Protein, Blood 8.5 g/dL (6.4-8.2)
== END | disposition home or self-care (01) ==
LOC: LAB SHORT 14:15
PROVIDERS: Family Medicine
DX: E11.9 Type 2 diabetes mellitus without complications (principal); D64.9 Anemia, unspecified
CPT/HCPCS: 80053; 82728; 83540; 83550; 85025

== ENCOUNTER → 2021-12-03 | Outpatient (CLI) | payer OTHER | END | disposition home or self-care (01) | LOC: LAB SHORT 12:08 → PLD 12:08 | DX: D22.5 Melanocytic nevi of trunk (principal) | CPT/HCPCS: 88305 ==

== ENCOUNTER → 2022-12-29 | Outpatient (CLI) | payer OTHER ==
[~2022-12-29] MED LIST changes: +ACETAMINOPHEN500 MG PO
[2022-12-29 15:24] LABS: Source, Urine Clean Catch
[2022-12-29 17:02] LABS: Appearance, Urine Clear (Clear); Bilirubin, Urine Neg (Neg); Blood, Urine Neg (Neg); Color, Urine Yellow (P-Yellow); Glucose Qualitative, Urine Neg (Neg); Ketones, Urine Neg (Neg); Leukocyte Esterase, Urine 2+ (Neg); Nitrite, Urine Neg (Neg); Protein, Urine 1+ (Neg); Urobilinogen, Urine NORM (Normal)
[2022-12-29 17:28] LABS: Red Blood Cells, Urine 0-2 /hpf (0-2); Renal Epithelial Rare /hpf (0-Rare); White Blood Cells, Urine 25-50 /hpf (0-5)
[2022-12-29 17:29] LABS: Bacteria Many /hpf; Squamous Epithelial Cells Rare /hpf (Few)
== END | disposition home or self-care (01) ==
LOC: LAB 14:00 → LAB SHORT 14:00
PROVIDERS: Family Medicine
DX: N39.0 Urinary tract infection, site not specified (principal)
CPT/HCPCS: 81001; 87077; 87086; 87186

== ENCOUNTER → 2023-01-22 | Outpatient (CLI) | payer OTHER ==
[2023-01-22 12:31] LABS: Source, Urine Clean Catch
[2023-01-22 14:01] LABS: Appearance, Urine Cloudy (Clear); Bilirubin, Urine Neg (Neg); Blood, Urine 2+ (Neg); Color, Urine Yellow (P-Yellow); Glucose Qualitative, Urine Neg (Neg); Ketones, Urine Neg (Neg); Leukocyte Esterase, Urine 3+ (Neg); Nitrite, Urine Pos (Neg); Protein, Urine 3+ (Neg); Urobilinogen, Urine NORM (Normal)
[2023-01-22 15:19] LABS: Bacteria Many /hpf; Squamous Epithelial Cells Rare /hpf (Few); Transitional Epithelial Cells Few /hpf (0-Rare); White Blood Cells, Urine TNTC /hpf (0-5)
== END | disposition home or self-care (01) ==
LOC: LAB 12:29 → LAB SHORT 12:29
PROVIDERS: Family Medicine
DX: N39.0 Urinary tract infection, site not specified (principal)
CPT/HCPCS: 81001; 87077; 87086; 87186

== ENCOUNTER → 2023-04-20 | Outpatient (CLI) | payer OTHER ==
[2023-04-20 16:21] LABS: Source, Urine Clean Catch
[2023-04-20 17:35] LABS: Appearance, Urine Hazy (Clear); Bilirubin, Urine Neg (Neg); Blood, Urine 5+ (Neg); Color, Urine Yellow (P-Yellow); Glucose Qualitative, Urine Neg (Neg); Ketones, Urine Neg (Neg); Leukocyte Esterase, Urine 3+ (Neg); Nitrite, Urine Neg (Neg); Protein, Urine 3+ (Neg); Specific Gravity, Urine 1.015 (1.003-1.022); Urobilinogen, Urine NORM (Normal)
[2023-04-20 17:42] LABS: Bacteria Many /hpf; Squamous Epithelial Cells Few /hpf (Few); White Blood Cells, Urine TNTC /hpf (0-5)
== END | disposition home or self-care (01) ==
LOC: LAB SHORT 16:10 → LAB 16:10
PROVIDERS: Family Medicine
DX: N39.0 Urinary tract infection, site not specified (principal)
CPT/HCPCS: 81001; 87077; 87086; 87186

== ENCOUNTER 2023-04-22 10:28 | Emergency (ER) | payer OTHER ==
[~2023-04-22] VITALS: Ht 152.4 cm; Wt 81.7 kg
[2023-04-22 12:12] LABS: Adenovirus Not Detected (NOT DETECT); Coronavirus 229E Not Detected (NOT DETECT); Coronavirus HKU1 Not Detected (NOT DETECT); Coronavirus NL63 Not Detected (NOT DETECT); Coronavirus OC43 Not Detected (NOT DETECT)
[2023-04-22 12:13] LABS: Bordetella pertussis Not Detected (NOT DETECT); Chlamydophila pneumoniae Not Detected (NOT DETECT); Human Metapneumovirus Not Detected (NOT DETECT); Human Rhinovirus/Enterovirus Not Detected (NOT DETECT); Influenza A/2009-H1 Not Detected (NOT DETECT); Influenza A/H1 Not Detected (NOT DETECT); Influenza A/H3 Not Detected (NOT DETECT); Influenza B Not Detected (NOT DETECT); Mycoplasma pneumoniae Not Detected (NOT DETECT); Parainfluenza Virus 1 Not Detected (NOT DETECT); Parainfluenza Virus 2 Not Detected (NOT DETECT); Parainfluenza Virus 3 Not Detected (NOT DETECT); Parainfluenza Virus 4 Not Detected (NOT DETECT); Respiratory Syncytial Virus Not Detected (NOT DETECT); SARS-Cov-2 (COVID-19), BioFire Not Detected (NOT DETECT)
[2023-04-22] MEDS ORDERED: SULTRIDS PO ×2 (13:01→16:08)
[2023-04-22 16:07] VITALS: BP 112/62
== END 2023-04-22 16:08 | disposition home or self-care (01) ==
LOC: ER 10:28
PROVIDERS: Student in an Organized Health Care Education/Training Program
DX: J06.9 Acute upper respiratory infection, unspecified (principal); N39.0 Urinary tract infection, site not specified; Z20.822 Contact with and (suspected) exposure to COVID-19; Z87.891 Personal history of nicotine dependence; E11.9 Type 2 diabetes mellitus without complications; I10 Essential (primary) hypertension; E78.5 Hyperlipidemia, unspecified; Z87.442 Personal history of urinary calculi; Z88.0 Allergy status to penicillin; Z88.1 Allergy status to other antibiotic agents; Z91.09 Other allergy status, other than to drugs and biological substances; Z88.7 Allergy status to serum and vaccine; Z88.8 Allergy status to other drugs, medicaments and biological substances; Z79.890 Hormone replacement therapy; Z79.1 Long term (current) use of non-steroidal anti-inflammatories (NSAID); Z79.899 Other long term (current) drug therapy
CPT/HCPCS: 0202U; 71045; 96374; 99284-25; A9270; J1885

== ENCOUNTER 2023-05-17 17:33 | Inpatient (IN) | payer OTHER ==
[~2023-05-17] VITALS: Ht 152.4 cm; Wt 80.6 kg
[~2023-05-17 17:33] MED LIST changes: +DULO30 PO; -LOSA25; +LOSA25 PO; +NYSTOP15 GM TOP; -Nystatin15 GM TOP; -POTA10T PO
[2023-05-17 18:05] LABS: BASOPHILS ABSOLUTE AUTO 0.05 K/mm3 (0.00-0.23); BASOPHILS PERCENT AUTO 0 % (0-2); EOSINOPHILS ABSOLUTE AUTO 0.27 K/mm3 (0.00-0.68); EOSINOPHILS PERCENT AUTO 2 % (0-6); Hematocrit 25.4 % (33.0-51.0); Hemoglobin 7.7 g/dL (11.5-16.0); IMMATURE GRAN ABSOLUTE AUTO 0.08 K/mm3 (0.00-0.10); IMMATURE GRAN PERCENT AUTO 1 % (0-1); LYMPHOCYTES ABSOLUTE AUTO 1.23 K/mm3 (0.84-5.20); LYMPHOCYTES PERCENT AUTO 11 % (21-46); MONOCYTES ABSOLUTE AUTO 1.08 K/mm3 (0.16-1.47); MONOCYTES PERCENT AUTO 9 % (4-13); Mean Corpuscular HGB 26.4 pg (26.0-34.0); Mean Corpuscular HGB Conc 30.3 g/dL (31.5-36.5); Mean Corpuscular Volume 87 fL (80-100); Mean Platelet Volume 9.4 fL (9.1-12.4); NEUTROPHILS ABSOLUTE AUTO 9.01 K/mm3 (1.96-9.15); NEUTROPHILS PERCENT AUTO 77 % (41-73); Platelet Count 287 K/mm3 (150-400); RDW Coefficient Variation 15.7 % (11.7-14.2); RDW Standard Deviation 49.9 fL (35.1-46.3); Red Blood Cell Count 2.92 M/mm3 (3.80-5.20); White Blood Cell Count 11.72 K/mm3 (4.00-11.30)
[2023-05-17 18:28] LABS: Albumin, Blood 3.2 g/dL (3.4-5.0); Albumin/Globulin Ratio 0.7 (0.8-1.8); Bilirubin, Total 0.2 mg/dL (0.1-1.0); Bun/Creatinine Ratio 22.4 (12.0-20.0); Creatinine, Blood 2.05 mg/dL (0.40-1.00); Globulin, Blood 4.6 g/dL (2.2-4.0); Potassium, Blood 6.7 mmol/L (3.5-5.5); Total Protein, Blood 7.8 g/dL (6.4-8.2)
[2023-05-17 20:21] LABS: Source, Urine Straight Cath
[2023-05-17 20:21] LABS: Influenza A, PCR NEGATIVE (NEGATIVE); Influenza B, PCR NEGATIVE (NEGATIVE); Resp Syncytial Virus, PCR NEGATIVE (NEGATIVE); SARS-Cov-2 (COVID-19) PCR, MMC NEGATIVE (NEGATIVE)
[2023-05-17 20:26] LABS: Appearance, Urine Cloudy (Clear); Bilirubin, Urine Neg (Neg); Blood, Urine 5+ (Neg); Color, Urine Yellow (P-Yellow); Glucose Qualitative, Urine Neg (Neg); Ketones, Urine Neg (Neg); Leukocyte Esterase, Urine 3+ (Neg); Nitrite, Urine Neg (Neg); Protein, Urine 3+ (Neg); Urobilinogen, Urine NORM (Normal)
[2023-05-17 20:38] LABS: White Blood Cells, Urine TNTC /hpf (0-5)
[2023-05-17 20:39] LABS: Bacteria Many /hpf; Red Blood Cells, Urine 50-100 /hpf (0-2); Squamous Epithelial Cells Rare /hpf (Few)
[2023-05-17 20:45] LABS: Bun/Creatinine Ratio 22.2 (12.0-20.0); Calcium, Blood 9.6 mg/dL (8.5-10.1); Creatinine, Blood 2.03 mg/dL (0.40-1.00); Potassium, Blood 6.5 mmol/L (3.5-5.5)
[2023-05-17 22:18] LABS: Base Excess Venous -7.9 mmol/L; Bicarbonate Venous 18.6 mmol/L (24.0-30.0); PCO2 Venous 31.5 mmHg (38-42); pH Blood Venous 7.36 (7.34-7.37)
[2023-05-17 22:41] LABS: Calcium, Blood 8.5 mg/dL (8.5-10.1); Creatinine, Blood 1.92 mg/dL (0.40-1.00); Potassium, Blood 4.7 mmol/L (3.5-5.5)
--- NOTE | 2023-05-17 22:44 | NUR ---
PATIENT ARRIVED TO ICU 12 VIA GURNEY FROM ED WITH ETT IN PLACE AND RT AT BEDSIDE. PATIENT TRANSFER TO ICU BED AND PLACED ON ICU MONITORS, RT PLACED HER TO VENT AC/VC+ 16, TV 360, PEEP 6, FIO2 50% . OG PLACED TO LIS DRAINING YELLOW BILE. PROPOFOL 25 MCG INFUSING, PATIENT REACHING UP TO ETT AND GRIMACING WITH STIMULI, RELAXING WITH NO STIMULI. EYES AND LIPS SWOLLEN, GENERALIZED EDEMA AND SPLOTCHY RED RASH SEEN TO BODY. BAND-AID TO MID LOW BACK CD&I PATIENTS GRANDALTAF MULLEN VERBALIZED THAT SHE HAD RECEIVED RENAL STENTS RECENTLY, UNSURE IF THIS WAS ACCESS SITE. VIDAL IN PLACE DRAINING CLOUDY YELLOW URINE.
[2023-05-17 23:00] VITALS: BP 126/52
[2023-05-17 23:15] VITALS: BP 125/47
[2023-05-17 23:30] VITALS: BP 113/41
[2023-05-17 23:39] LABS: Bun/Creatinine Ratio 23.3 (12.0-20.0); Calcium, Blood 8.9 mg/dL (8.5-10.1); Creatinine, Blood 1.89 mg/dL (0.40-1.00); Potassium, Blood 4.9 mmol/L (3.5-5.5)
[2023-05-17 23:45] VITALS: BP 103/42
[2023-05-18] VITALS (67 sets, daily range): BP systolic 92–166; BP diastolic 39–109
--- NOTE | 2023-05-18 01:24 | NUR ---
DOCTOR JODI NOTIFIED OF ADMIT AND CONTINUED SOFT BP 100/40 NS BOLUS STARTED PROPOFOL 25 MCG CONTINUES. START GRISELDA-SYNEPHRINE IF NEEDED.
[2023-05-18] MEDS ORDERED: OXYACE7.5T PO (03:06)
[2023-05-18] MEDS ORDERED: BACL10 PO (03:07)
[2023-05-18] MEDS ORDERED: CRANBERRY450 M1 PO (03:08)
[2023-05-18] MEDS ORDERED: BENADRYL25 MG PO (03:10)
[2023-05-18] MEDS ORDERED: MELATONIN5 M1 PO (03:12)
[2023-05-18] MEDS ORDERED: CENTRUM SILVER1 EAC2 PO (03:12)
[2023-05-18] MEDS ORDERED: OXYB5 PO (03:15)
[2023-05-18] MEDS ORDERED: TAMS.4ER PO (03:16)
[2023-05-18] MEDS ORDERED: TRAZ50 PO (03:17)
[2023-05-18] MEDS ORDERED: Calcium Carbon500 MG PO (03:19)
[2023-05-18 03:23] LABS: BASOPHILS ABSOLUTE AUTO 0.01 K/mm3 (0.00-0.23); BASOPHILS PERCENT AUTO 0 % (0-2); EOSINOPHILS PERCENT AUTO 0 % (0-6); Hematocrit 24.1 % (33.0-51.0); IMMATURE GRAN ABSOLUTE AUTO 0.09 K/mm3 (0.00-0.10); IMMATURE GRAN PERCENT AUTO 1 % (0-1); LYMPHOCYTES ABSOLUTE AUTO 0.46 K/mm3 (0.84-5.20); LYMPHOCYTES PERCENT AUTO 4 % (21-46); MONOCYTES ABSOLUTE AUTO 0.27 K/mm3 (0.16-1.47); MONOCYTES PERCENT AUTO 2 % (4-13); Mean Corpuscular HGB 25.7 pg (26.0-34.0); Mean Corpuscular Volume 89 fL (80-100); Mean Platelet Volume 9.9 fL (9.1-12.4); NEUTROPHILS ABSOLUTE AUTO 11.81 K/mm3 (1.96-9.15); NEUTROPHILS PERCENT AUTO 94 % (41-73); Platelet Count 265 K/mm3 (150-400); RDW Coefficient Variation 15.9 % (11.7-14.2); RDW Standard Deviation 52.1 fL (35.1-46.3); Red Blood Cell Count 2.72 M/mm3 (3.80-5.20); White Blood Cell Count 12.64 K/mm3 (4.00-11.30)
[2023-05-18 04:19] LABS: Alanine Aminotransfer (ALT/SGP 15 U/L (12-78); Albumin, Blood 2.3 g/dL (3.4-5.0); Albumin/Globulin Ratio 0.7 (0.8-1.8); Alk Phos 64 U/L (50-136); Anion Gap 5 mmol/L (6-16); Aspartate Aminotrans (AST/SGOT 12 U/L (12-37); Bilirubin, Total <0.1 mg/dL (0.1-1.0); Blood Urea Nitrogen 40 mg/dL (8-24); Bun/Creatinine Ratio 23.1 (12.0-20.0); CO2, Blood 20 mmol/L (21-32); Calcium, Blood 8.6 mg/dL (8.5-10.1); Chloride, Blood 117 mmol/L (98-108); Creatinine, Blood 1.73 mg/dL (0.40-1.00); Globulin, Blood 3.4 g/dL (2.2-4.0); Glomerular Filtration Rate 30 (60-); Glucose, Blood 243 mg/dL (70-99); Sodium, Blood 142 mmol/L (136-145)
[2023-05-18 04:20] LABS: Total Protein, Blood 5.7 g/dL (6.4-8.2)
--- NOTE | 2023-05-18 06:11 | NUR ---
SUMMARY PATIENT REMAINS INTUBATED AND SEDATED WITH PROPOFOL 20 MCG. AWAKENS EASILY WITH STIMULI THEN RELAXING EASILY. ETT REMAINS IN PLACE SWELLING APPEARS TO HAVE COME DOWN IN FACE, RT VERBALIZED ETT NOW HAS AIR LEAK WHEN BALLOON DEFLATED. VENT SETTINGS AC/VC+ 16, TV 360, PEEP 5, FIO2 35% OG REMAINS IN PLACE AND CLAMPED. VIDAL DRAINING GOOD AMT OF HAZY YELLOW URINE. HYPOTENSION CONTINUES 114/46 MAP 65.
[2023-05-18 08:18] LABS: Hematocrit 25.8 % (33.0-51.0); Hemoglobin 7.6 g/dL (11.5-16.0)
--- NOTE | 2023-05-18 18:46 | NUR ---
SHIFT SUMMARY PATIENT FAILED SBT DUE TO DECREAED TV AND RR AFTER BEING ON SPONTANEOUS FOR SHORT TIME. PATIENT WOULD BECOME TACHYPNEIC AND REQUIRE FREQUENT THERAPEUTIC COMMUNICATION. VSS T/O SHIFT. VENT SETTINGS REMAIN 16/350/5/35% WITH SPO2 GREATER THAN 92%. PATIENT IS ABLE TO FOLLOW COMMANDS. PROPOFOL @ 30 MCG/KG/MIN. SWELLING AROUND EYES AND LIPS APPEARED THIS AFTERNOON-MEDICATED WITH BENADRYL 50MG IV X 1. GOOD URINE OUTPUT. NO OTHER CHANGES THIS SHIFT.
[2023-05-19] VITALS (64 sets, daily range): BP systolic 123–165; BP diastolic 48–91
[2023-05-19 03:38] LABS: BASOPHILS ABSOLUTE AUTO 0.01 K/mm3 (0.00-0.23); BASOPHILS PERCENT AUTO 0 % (0-2); EOSINOPHILS PERCENT AUTO 0 % (0-6); Hematocrit 24.7 % (33.0-51.0); Hemoglobin 7.5 g/dL (11.5-16.0); IMMATURE GRAN PERCENT AUTO 1 % (0-1); LYMPHOCYTES ABSOLUTE AUTO 0.89 K/mm3 (0.84-5.20); LYMPHOCYTES PERCENT AUTO 7 % (21-46); MONOCYTES PERCENT AUTO 3 % (4-13); Mean Corpuscular HGB 25.8 pg (26.0-34.0); Mean Corpuscular HGB Conc 30.4 g/dL (31.5-36.5); Mean Corpuscular Volume 85 fL (80-100); Mean Platelet Volume 9.7 fL (9.1-12.4); NEUTROPHILS ABSOLUTE AUTO 11.55 K/mm3 (1.96-9.15); NEUTROPHILS PERCENT AUTO 89 % (41-73); Platelet Count 279 K/mm3 (150-400); RDW Standard Deviation 49.4 fL (35.1-46.3); Red Blood Cell Count 2.91 M/mm3 (3.80-5.20); White Blood Cell Count 12.95 K/mm3 (4.00-11.30)
[2023-05-19 04:21] LABS: Albumin, Blood 2.6 g/dL (3.4-5.0); Albumin/Globulin Ratio 0.7 (0.8-1.8); Bilirubin, Total 0.1 mg/dL (0.1-1.0); Bun/Creatinine Ratio 23.9 (12.0-20.0); Calcium, Blood 8.8 mg/dL (8.5-10.1); Creatinine, Blood 1.38 mg/dL (0.40-1.00); Globulin, Blood 3.7 g/dL (2.2-4.0); Potassium, Blood 4.8 mmol/L (3.5-5.5); Total Protein, Blood 6.3 g/dL (6.4-8.2)
--- NOTE | 2023-05-19 06:27 | NUR ---
PATIENT INCREASINGLY DIFFICULT TO KEEP COMFORTABLE ON THE VENTILATOR. OPENS EYES AND FREQUENTLY WAVES AT STAFF TRYING TO GET THEM TO COME INTO THE ROOM. PROPOFOL AT 60 AND PRN FENTANYL GIVEN X3. FOLLOWS COMMANDS AND NODS APPROPRIATELY. SR AND STABLE BP. AC/VC 16/360/5/35%. OGT CLAMPED. VIDAL IN PLACE.
--- NOTE | 2023-05-19 08:00 | NUR ---
INITIAL ASSESSMENT PATIENT INTUBATED AND ON SEDATION. PATIENT IS WIDE AWAKE. PATIENT ABLE TO FOLLOW SIMPLE COMMANDS AND NODS/ SHAKES HEAD APPROPRIATELY TO ANSWER YES AND NO QUESTIONS. PATIENT AFEBRILE. PATIENT DENIES PAIN AT THIS TIME. PATIENT ANXIOUS AT TIMES. PATIENT WEAK BUT ABLE TO MOVE ALL EXTREMITIES. LLL COARSE; ALL OTHER LUNG LOBES CLEAR TO AUSCULTATION. PATIENT ON ACVC+ 16, 360, TI 0.75, PEEP 5 AND 35% FIO2. SCANT AMOUNT OF THIN, CLEAR SPUTUM SUCTIONED FROM ETT. PATIENT IN SR, HR 60S TO 80S. SBP 130S TO 140S. MURMUR NOTED. OG TO LIS. VIDAL DRAINING YELLOW COLORED URINE. SKIN APPEARS WNL. PROPOFOL INFUSING AT 60 MCG/ KG/ MINUTE. BED LOW, CALL LIGHT IN REACH. NO COMPLAINTS AT THIS TIME. CARE CONTINUES.
--- NOTE | 2023-05-19 12:30 | NUR ---
PATIENT AFEBRILE. PATIENT ANXIOUS. ATTEMPED TO HAVE PATIENT WRITE ON CLIPBOARD BUT UNABLE TO UNDERSTAND WHAT PATIENT IS TRYING TO TELL NURSE. PATIENT DENIES PAIN OR DISCOMFORT. HR IN THE 60S. SBP IN THE 140S. BLOOD SUGAR 181; COVERAGE ADMINISTERED. VHP TF STARTED AT GOAL RATE OF 30 MLS/ HOUR WITH 30 ML WATER FLUSH Q4H. BED LOW, CALL LIGHT IN REACH. CARE CONTINUES.
--- NOTE | 2023-05-19 16:00 | NUR ---
PATIENT AFEBRILE. PATIENT SB TO SR, HR 50S TO 60S. PATIENT SBP 140S TO 150S. FIO2 40%. FIRST DEGREE BLOCK NOTED. PATIENT ANXIOUS EARLIER. PRECEDEX IS HELPING. NO OTHER ACUTE CHANGES NOTED AT THIS TIME. CARE CONTINUES.
--- NOTE | 2023-05-19 18:39 | NUR ---
SHIFT SUMMARY PATIENT REMAINED INTUBATED AND ON SEDATION THIS SHIFT. PATIENT ABLE TO FOLLOW COMMANDS AND NOD/ SHAKE HEAD TO ANSWER YES AND NO QUESTIONS. PATIENT PLACED ON PRECEDEX THIS SHIFT FOR INCREASED ANXIETY. PATIENT REMAINED AFEBRILE. PATIENT GIVEN PRN FENTANYL FOR SIGNS OF PAIN. PATIENT ON AC VC+ 16, TV 360, TI 0.75, PEEP 5, FIO2 INCREASED FROM 35 TO 40%. PATIENT SB TO SR WITH FIRST DEGREE BLOCK, HR 50S TO 80S. SBP 130S TO 160S. VHP AT GOAL RATE OF 30 MLS/ HOUR WITH 30 ML WATER FLUSH Q4H STARTED THIS SHIFT. BLOOD SUGARS 181 AND 196 THIS SHIFT. 1100 MLS OF URINE OUT FROM VIDAL THIS SHIFT. NO BM THIS SHIFT. NO CHANGES TO SKIN NOTED. PROPOFOL AT 60 MCG/ KG/ MINUTE AND PRECEDEX ON SB AT THIS TIME. GRANDSON CAME TO SEE PATIENT AT END OF SHIFT. BED LOW, CALL LIGHT IN REACH. NO SIGNS OF PAIN NOTED. REPORT TO ONCOMING AUTOMOBILE TIRE BUILDER NURSE SHORTLY.
--- NOTE | 2023-05-19 19:08 | NUR ---
ASSUMED CARE OF PATIENT AT 1900. REPORT RECEIVED FROM DENILSON ORELLANA AND TOMEKA ORELLANA. VSS AND NO ACUTE NEEDS IDENTIFIED AT THIS TIME. SEE SHIFT ASSESSMENT FOR FULL ASSESSMENT DETAILS.
[2023-05-20] VITALS (60 sets, daily range): BP systolic 71–178; BP diastolic 45–106
[2023-05-20 04:10] LABS: Albumin, Blood 2.8 g/dL (3.4-5.0); Albumin/Globulin Ratio 0.7 (0.8-1.8); Bilirubin, Total 0.2 mg/dL (0.1-1.0); Bun/Creatinine Ratio 33.1 (12.0-20.0); Calcium, Blood 9.1 mg/dL (8.5-10.1); Creatinine, Blood 1.27 mg/dL (0.40-1.00); Globulin, Blood 4.1 g/dL (2.2-4.0); Magnesium, Blood 2.2 mg/dL (1.6-2.4); Phosphorus, Blood 2.8 mg/dL (2.5-4.9); Potassium, Blood 4.9 mmol/L (3.5-5.5); Total Protein, Blood 6.9 g/dL (6.4-8.2)
--- NOTE | 2023-05-20 05:46 | NUR ---
SHIFT SUMMARY PATIENT INTUBATED AND SEDATED THROUGHOUT ENTIRETY OF SHIFT. SHE MAKES PURPOSEFUL MOVEMENTS, OPENS EYES TO SOUNDS AND PRESSURE, AND SHAKES HEAD YES/NO APPROPRIATELY. AFEBRILE. MONITOR SHOWED SINUS NANCY WITH HR IN 40'S-60'S. BP STABLE. A/C VC+ 16/360/5/50%. O2 SATS IN HIGH 80'S TO LOW 90'S. NO BM THIS SHIFT. VITAL HP INFUSING AT GOAL RATE OF 30mL/HR. VIDAL IN PLACE DRAINING CLEAR YELLOW URINE TO GRAVITY. PIV TO RFA INFUSING PROPOFOL AT 60 MCG/KG/MIN. PRECEDEX ON SB ALL SHIFT. WILL CONTINUE TO MONITOR AND REPORT TO ONCOMING NURSE.
--- NOTE | 2023-05-20 12:00 | NUR ---
PT INTUBATED. WHEN AWAKE PT IS ABLE TO NOD YES OR NO TO QUESTIONS APPROPRIATELY. SCHULTZ SPONTANEOUSLY AND IS STRONG, WILL ATTEMPT AT ETT WHEN HANDS ARE FREE. PROPOFOL WAS RUNNING AT 60MCG/KG/MIN THIS AM AND PT WAS STILL WIDE AWAKE AND TEARFUL. WHEN ASKED PT IF SHE WAS ANXIOUS SHE NODS HER HEAD YES. DR. SALAZAR ORDERED ATIVAN AND PT HAS BEEN RESTING MORE COMFORTABLEY EVER SINCE. JUST AFTER 0700 DR. SALAZAR AND RT DID A CUFF LEAK TEST BUT PT FAILED TODAY. WILL BE KEEPING PT INTUBATED TODAY.
--- NOTE | 2023-05-20 19:11 | NUR ---
SUMMARY PT INTUBATED AND SEDATED WITH PROPOFOL AND ATIVAN ADJUNCT. PT IS ABLE TO NOD YES AND NO TO QUESTIONS APPROPRIATELY. WILL ATTEMPT TO PULL ETT AND WILL SCOOT DOWN IN BED TO TRY TO GET HANDS CLOSER. FAILED CUFF LEAK TEST THIS AM. WAS SWITCHED TO SPONTANEOUS SETTINGS ON VENT THIS AFTERNOON AND HAS BEEN DOING WELL ON THOSE SETTINGS. NO OTHER CHANGES SINCE LAST NOTE.
--- NOTE | 2023-05-20 20:57 | NUR ---
ASSUMPTION OF CARE/ASSESSMENT: ASSUMED CARE OF PT AT 1900; PT CURRENTLY INTUBATED AND SEDATED WITH VENT SETTINGS SPONT. P-10, PEEP 5, AND FIOW 35%. PT SEDATED WITH PROPOFOL GTT @ 45 MCG/KG/HR; PT ALERT IN ROOM TO VERBAL STIMULI AND IS TRACKING IN ROOM, ANSWERING YES/NO QUESTIONS AND FOLLOWING SIMPLE COMMANDS. PT NODDING HEAD YES TO PAIN/ANXIETY; PRN MEDS PER EMAR. PT LUNG SOUNDS ARE CLEAR WITH DIM BASES THROUGHOUT; ON SPONT. MODE RR 10-12 WITH TV 400-500, SPO2 91<. SB ON MONITOR WITH HR 50'S WITH OCC. DROPS DOWN TO LOW 40'S THAT IS NOT SUSTAINED; SBP 160-170'S, CALL PLACED TO NIGHT RESIDENT FOR PRN MEDS. OGT IN PLACE WITH VHP @ 30MLS/HR; ABD DISTENDED AND HYPOACTIVE BOWEL SOUNDS IN ALL QUADRANTS. PT HAS VIDAL IN PLACE THAT IS DRAINING TO GRAVITY WITH CLEAR, LIGHT YELLOW URINE. SKIN PALE, DRY AND PPP X4; EDEMA NOTED TO ALL EXTREMITIES, 1+.
[2023-05-21] VITALS (33 sets, daily range): BP systolic 123–172; BP diastolic 51–142
[2023-05-21 03:53] LABS: Albumin, Blood 2.9 g/dL (3.4-5.0); Albumin/Globulin Ratio 0.7 (0.8-1.8); Bilirubin, Total 0.3 mg/dL (0.1-1.0); Bun/Creatinine Ratio 41.5 (12.0-20.0); Calcium, Blood 8.2 mg/dL (8.5-10.1); Creatinine, Blood 1.06 mg/dL (0.40-1.00); Globulin, Blood 4.2 g/dL (2.2-4.0); Magnesium, Blood 2.2 mg/dL (1.6-2.4); Phosphorus, Blood 2.9 mg/dL (2.5-4.9); Potassium, Blood 4.4 mmol/L (3.5-5.5); Total Protein, Blood 7.1 g/dL (6.4-8.2)
--- NOTE | 2023-05-21 06:01 | NUR ---
SHIFT SUMMARY: NO ACUTE CHANGES OVERNIGHT; VITAL SIGNS STABLE THROUGHOUT THE SHIFT. PT HAS A BOWEL MOVEMENT THIS SHIFT. URINE OUTPUT 3600 ML. PT REMAINED ON SPONT. MODE ON VENT WITH SETTINGS P-10, PEEP-5, AND FIO2 35%; PT RR 12-14, TV 400-500, AND PT STILL HAS NO CUFF LEAK. PT REMAINS ALERT TO VERBAL STIMULI AND FOLLOWING DIRECTIONS AND ANSWERING YES/NO QUESTIONS. PT RECIEVED ATIVAN AND FENTANYL IVP PRN FOR VENT COMPLIANCE AND COMFORTABILITY. WILL REPORT OFF TO ONCOMING RN.
[2023-05-21 06:54] LABS: Hematocrit 27.9 % (33.0-51.0); Hemoglobin 8.8 g/dL (11.5-16.0); Mean Corpuscular HGB Conc 31.5 g/dL (31.5-36.5); Mean Corpuscular Volume 83 fL (80-100); Mean Platelet Volume 10.2 fL (9.1-12.4); NRBC ABSOLUTE 0.04 K/mm3 (0.00-0.02); NRBC Auto 0.3 /100 WBC (0.0-0.2); Platelet Count 345 K/mm3 (150-400); RDW Coefficient Variation 15.8 % (11.7-14.2); RDW Standard Deviation 47.7 fL (35.1-46.3); Red Blood Cell Count 3.38 M/mm3 (3.80-5.20); White Blood Cell Count 13.06 K/mm3 (4.00-11.30)
[2023-05-21 07:57] LABS: BAND PERCENT MAN 1 % (0-8); BASOPHILS PERCENT MAN 0 % (0-2); EOSINOPHILS PERCENT MAN 0 % (0-6); LYMPHOCYTES % ATYPICAL MANUAL 2 % (0-0); LYMPHOCYTES PERCENT MAN 8 % (21-46); MONOCYTES ABSOLUTE MAN 0.13 K/mm3 (0.16-1.47); MONOCYTES PERCENT MAN 1 % (4-13); MYELOCYTE ABSOLUTE MAN 0.65 K/mm3 (0.00-0.00); MYELOCYTE PERCENT MAN 5 % (0-0); NEUTROPHILS ABSOLUTE MAN 10.97 K/mm3 (1.96-9.15); SEG NEUTROPHILS PERCENT MAN 83 % (41-73); TOTAL CELLS COUNTED 100
--- NOTE | 2023-05-21 08:30 | NUR ---
[place] of Care: Care assumed at 0700. Pt on vent support and tolerating it well. Currently on 45 mcg/kg/min propofol gtt, appears calm and comfortable, follows commands to move extremities and nods head yes/no appropriately. Vital signs are stable. x1 peripheral IV patent and intact. Phan cath patent and intact. Plan for RT to assess for cuff leak. Plan to assess readiness for extubation pending Dr. Conklin evaluation. Will continue to monitor.
--- NOTE | 2023-05-21 15:00 | NUR ---
UPDATE PT WAS EXTUBATED AT 0927 TO 4L NC. PT WAS ONLY ORIENTED TO SELF AND TEARFUL. THE DAY HAS GONE ON PT IS STILL ONLY ORIENTED TO SELF AND AGITATED. PT SEEMED TO BE HALLUCINATING AT TIMES WELL. ZYPREXA WAS GIVEN. PT WILL NOT ALLOW RN TO REPLACE SPO2 MONITOR OR BP CUFF AND WILL NOT ALLOW REPOSITIONING. SPOKE WITH GRANDDAUGHTER OVER THE PHONE AND SHE STATES PT HAS BEEN THIS WAY ON PRIOR ADMITS AND ESPECIALLY WHEN SHE HAS A UTI. PT DECLINED TO WORK WITH SPEECH THERAPY.
--- NOTE | 2023-05-21 19:14 | NUR ---
SUMMARY PT ORIENTED TO SELF AND ABLE TO STATE SHE LIVES AT [place]. PT IS AGITATED AND WANTS TO GO HOME TO HER CAT. DIFFICULT TO REDIRECT. PT CONTINUES TO TAKE BP CUFF, SPO2 PROBE, AND O2 OFF. WILL NOT ALLOW RN TO PUT ITEMS BACK ON. DR. SALAZAR AWARE AND WANTS TO CONTINUE TO MONITOR VS PT ALLOWS. PT STATES SHE HAS PAIN ALL OVER BUT IS REFUSING PAIN MEDS AT THIS TIME. PROVIDING REASSURANCE AND CONTINUING TO REDIRECT.
--- NOTE | 2023-05-21 20:00 | NUR ---
ASSESSMENT ASSUME CARE. PT SITTING UP IN BED AND CONFUSED BUT REORIENTED THROUGH CONVERSATION. POWERGLIDE FLUSHED, LEADS REPLACED, ASSISSTED WITH REPOSITIONING, VIDAL CARE COMPLETE, BED ALARM ON, PILLS SWALLOWED WITH PO FLUIDS.
--- NOTE | 2023-05-21 21:18 | NUR ---
PT MEDICATED FOR HTN SEE EMAR.
[2023-05-22] VITALS (13 sets, daily range): BP systolic 98–149; BP diastolic 52–72
[2023-05-22 03:23] LABS: Hematocrit 30.4 % (33.0-51.0); Hemoglobin 9.5 g/dL (11.5-16.0); Mean Corpuscular HGB 25.5 pg (26.0-34.0); Mean Corpuscular HGB Conc 31.3 g/dL (31.5-36.5); Mean Corpuscular Volume 82 fL (80-100); Mean Platelet Volume 9.4 fL (9.1-12.4); NRBC ABSOLUTE 0.05 K/mm3 (0.00-0.02); NRBC Auto 0.3 /100 WBC (0.0-0.2); Platelet Count 339 K/mm3 (150-400); RDW Coefficient Variation 15.9 % (11.7-14.2); RDW Standard Deviation 46.4 fL (35.1-46.3); Red Blood Cell Count 3.73 M/mm3 (3.80-5.20); White Blood Cell Count 14.46 K/mm3 (4.00-11.30)
[2023-05-22 03:47] LABS: BAND PERCENT MAN 1 % (0-8); BASOPHILS PERCENT MAN 0 % (0-2); EOSINOPHILS ABSOLUTE MAN 0.14 K/mm3 (0.00-0.68); EOSINOPHILS PERCENT MAN 1 % (0-6); LYMPHOCYTES ABSOLUTE MAN 1.87 K/mm3 (0.84-5.20); LYMPHOCYTES PERCENT MAN 13 % (21-46); METAMYELOCYTE ABSOLUTE MAN 0.28 K/mm3 (0.00-0.00); METAMYELOCYTE PERCENT MAN 2 % (0-0); MONOCYTES ABSOLUTE MAN 1.01 K/mm3 (0.16-1.47); MONOCYTES PERCENT MAN 7 % (4-13); MYELOCYTE ABSOLUTE MAN 0.43 K/mm3 (0.00-0.00); MYELOCYTE PERCENT MAN 3 % (0-0); SEG NEUTROPHILS PERCENT MAN 73 % (41-73); TOTAL CELLS COUNTED 100
[2023-05-22 04:09] LABS: Bun/Creatinine Ratio 42.5 (12.0-20.0); Calcium, Blood 9.3 mg/dL (8.5-10.1); Creatinine, Blood 1.06 mg/dL (0.40-1.00); Magnesium, Blood 2.4 mg/dL (1.6-2.4); Phosphorus, Blood 3.3 mg/dL (2.5-4.9); Potassium, Blood 3.7 mmol/L (3.5-5.5)
--- NOTE | 2023-05-22 09:55 | NUR ---
ASSUMED CARE REPORT FROM KIM/BECKIE RN AT 0700. PT SLEEPING MOST OF AM. WAKES c VERBAL STIMULI. A&O X 3. FOLLOWS COMMANDS. OCCASIONALLY FORGETFUL, REORIENTS EASILY. SR, RATE 90'S. BP STABLE. ABD ROUND, SOFT, NON TENDER. BT X 4. TOLERATING PO FLUIDS AND BREAKFAST WELL. VIDAL PATENT, TO BE REMOVED THIS SHIFT. POWERGLIDE TO RUE, DRESSING C/D/I. STATUS CHANGED TO MED s TELE. PLAN FOR PT/OT THIS SHIFT. WILL CONTINUE TO MONITOR UNTIL TRANSFER TO MEDICAL FLOOR.
--- NOTE | 2023-05-22 11:12 | NUR ---
TRANSFER TO 305 REPORT TO JENNIFER ORELLANA. PT TRANSFERRED TO MEDICAL FLOOR. ALL BELONGINGS SENT c PT.
--- NOTE | 2023-05-22 11:18 | NUR ---
received report from percy inman.
--- NOTE | 2023-05-22 11:19 | NUR ---
1115: RECEIVED PT IN RECLINER CHAIR FROM ICU 12 TO ROOM 305 WITH ALL PERSONAL BELONGINGS. PT A&O X 3-4. CAN BE FORGETFUL THOUGH REORIENTS WELL.
--- NOTE | 2023-05-22 18:38 | NUR ---
SHIFT SUMMARY PT SAT UP IN RECLINER FOR MOST OF SHIFT SINCE TRANSFER FROM ICU. PLACED BACK TO BED AT 1630. PT RESTED QUIETLY. MEDICATED FOR C/O PAIN PER EMAR WITH GOOD RELIEF STATED BY PT. PT'S APPETITE IS GOOD. IS A&O X 4, VSS. IS PLEASANT & COOPERATIVE WITH ALL CARE. IS 1-2 PERSON ASSIST WITH FWW & GB FOR STAND & PIVOT BACK TO BED AND TO CHAIR. IS ABLE TO TAKE A FEW STEPS TO ADJUST FOR POSITIONING. PLAN IS FOR RETURN TO [place] WITH UPON DC WHEN READY.
[2023-05-23 05:18] LABS: Hematocrit 29.7 % (33.0-51.0); Hemoglobin 9.2 g/dL (11.5-16.0); Mean Corpuscular HGB 26.1 pg (26.0-34.0); Mean Corpuscular Volume 84 fL (80-100); Mean Platelet Volume 9.6 fL (9.1-12.4); NRBC ABSOLUTE 0.03 K/mm3 (0.00-0.02); NRBC Auto 0.2 /100 WBC (0.0-0.2); Platelet Count 274 K/mm3 (150-400); RDW Coefficient Variation 16.7 % (11.7-14.2); RDW Standard Deviation 49.2 fL (35.1-46.3); Red Blood Cell Count 3.52 M/mm3 (3.80-5.20); White Blood Cell Count 14.75 K/mm3 (4.00-11.30)
[2023-05-23 05:37] VITALS: BP 11/52
[2023-05-23 05:56] LABS: BAND PERCENT MAN 1 % (0-8); BASOPHILS PERCENT MAN 0 % (0-2); EOSINOPHILS ABSOLUTE MAN 0.29 K/mm3 (0.00-0.68); EOSINOPHILS PERCENT MAN 2 % (0-6); LYMPHOCYTES ABSOLUTE MAN 2.95 K/mm3 (0.84-5.20); LYMPHOCYTES PERCENT MAN 20 % (21-46); METAMYELOCYTE ABSOLUTE MAN 0.14 K/mm3 (0.00-0.00); METAMYELOCYTE PERCENT MAN 1 % (0-0); MONOCYTES ABSOLUTE MAN 0.59 K/mm3 (0.16-1.47); MONOCYTES PERCENT MAN 4 % (4-13); MYELOCYTE ABSOLUTE MAN 0.14 K/mm3 (0.00-0.00); MYELOCYTE PERCENT MAN 1 % (0-0); NEUTROPHILS ABSOLUTE MAN 10.62 K/mm3 (1.96-9.15); SEG NEUTROPHILS PERCENT MAN 71 % (41-73); TOTAL CELLS COUNTED 100
--- NOTE | 2023-05-23 06:10 | NUR ---
NOC SHIFT SUMMARY: BRIAN WESTON ABERCROMBIE WOULD LIKE AN UPDATE TODAY AFTER 9 AM. PATIENT A&O X4. CONTINUES ON IV MEROPENEM FOR UTI. EXTUBATED 2 DAYS AGO DUE TO ANAPHYLATIC REACTION. WHEELCHAIR BOUND AT BASELINE.
[2023-05-23 07:39] VITALS: BP 116/57
[2023-05-23 07:53] LABS: Bun/Creatinine Ratio 42.6 (12.0-20.0); Creatinine, Blood 1.22 mg/dL (0.40-1.00); Potassium, Blood 3.8 mmol/L (3.5-5.5)
[2023-05-23 16:21] VITALS: BP 113/44
--- NOTE | 2023-05-23 18:43 | NUR ---
SHIFT SUMMARY: PT A/O X 4, STANDBY ASSIST WITH PIVOT TX AT THIS TIME. PT WORKED WITH PT AND DID TAKE A FEW STEPS IN HER ROOM. CHRONIC BACK PAIN IS MANAGED. PT CONTINUES TO BE ON 3 LPM VIA NC. PT DID HAVE EPISODE OF RETENTION THIS AM. PVR COMPLETED THIS AFTERNOON AND WAS 141. NO OTHER CONCERNS FROM PT AT THIS TIME. PT HAS BEEN PLEASANT AND COOPETATIVE WITH CARE.
[2023-05-23 20:59] VITALS: BP 113/59
[2023-05-24 05:11] VITALS: BP 106/47
--- NOTE | 2023-05-24 05:58 | NUR ---
NOC SHIFT SUMMARY: PT ALERT AND ORIENTED X4. CONTINUES ON IV MEROPENEM. UP TO BSC WITH PIVOT AND WALKER. NO C/O PAIN.
--- NOTE | 2023-05-24 06:21 | NUR ---
PT. A&O X4. PIVOTS TO CHAIR AND BSC. BLADDER SCAN PVR WAS 216 LAST NIGHT. PERCOCET GIVEN ONCE FOR PAIN CONTROL.
[2023-05-24 07:24] VITALS: BP 120/55
[2023-05-24 15:21] VITALS: BP 103/37
--- NOTE | 2023-05-24 17:46 | NUR ---
SHIFT SUMMARY: PT A/O X 4, STANDBY ASSIST WITH WALKER AND GB, PLEASANT AND COOPERATIVE WITH CARE. PT EATING WELL. ABLE TO MAKE NEEDS KNOWN. PT LAST BLADDER SCAN REVEALED PVR OF 160 MLS. PT PAIN MANAGED WITH CURRENT REGIMEN. PT EATING DINNER AT THIS TIME.
[2023-05-24 19:27] VITALS: BP 104/50
[2023-05-25 03:25] VITALS: BP 99/46
[2023-05-25 05:06] LABS: Hematocrit 25.9 % (33.0-51.0); Hemoglobin 7.9 g/dL (11.5-16.0); Mean Corpuscular HGB 26.4 pg (26.0-34.0); Mean Corpuscular HGB Conc 30.5 g/dL (31.5-36.5); Mean Corpuscular Volume 87 fL (80-100); Mean Platelet Volume 10.6 fL (9.1-12.4); Platelet Count 226 K/mm3 (150-400); RDW Coefficient Variation 16.7 % (11.7-14.2); RDW Standard Deviation 51.1 fL (35.1-46.3); Red Blood Cell Count 2.99 M/mm3 (3.80-5.20); White Blood Cell Count 13.58 K/mm3 (4.00-11.30)
[2023-05-25 05:19] LABS: Bun/Creatinine Ratio 39.5 (12.0-20.0); Calcium, Blood 8.9 mg/dL (8.5-10.1); Creatinine, Blood 1.29 mg/dL (0.40-1.00); Potassium, Blood 4.4 mmol/L (3.5-5.5)
--- NOTE | 2023-05-25 06:16 | NUR ---
PT. VERY PLEASANT. BLADDER SCAN FOR PVR LAST NIGHT WAS 172. PERCOCET GIVEN ONCE. PATIENT C/O INCREASED RIGHT SIDE LEG PAIN SHE THINKS IS DUE TO HER FALL AT [place]. DISCHARGE BACK [place] WITH HOME HEALTH WHEN READY. UP WITH 1 ASSIST AND WALKER TO BATHROOM OR BSC.
[2023-05-25 07:31] VITALS: BP 116/49
[2023-05-25 11:37] LABS: Hematocrit 27.3 % (33.0-51.0); Hemoglobin 8.3 g/dL (11.5-16.0)
[2023-05-25] MEDS ORDERED: SULTRIDS PO (13:22)
[2023-05-25 16:08] VITALS: BP 114/66
--- NOTE | 2023-05-25 16:45 | NUR ---
PATIENT D/C'D BACK TO [facility] WITH HOME HEALTH VIA W/C VAN. DC INSTRUCTIONS AND EDUCATION DISCUSSED WITH PATIENT AND COPY PROVIDED. SPOKE WITH VIDA AT FACILITY AND DC PACKET GIVEN TO COMPOSITION WEATHERBOARD INSTALLER. PATIENT DENIES ANY FURTHER QUESTIONS OR CONCERNS.
== END 2023-05-25 16:43 | disposition home health service (06) | DRG 915 ==
LOC: ER 17:33 → ICUE 22:04 → MEDS 05-22 11:02
PROVIDERS: Emergency Medicine; Family Medicine Adult Medicine; Internal Medicine Critical Care Medicine; Student in an Organized Health Care Education/Training Program; ADMIT Internal Medicine
PROC: 5A1945Z Respiratory Ventilation, 24-96 Consecutive Hours (ICD-10-PCS; principal; 2023-05-17)
PROC: 0BH17EZ Insertion of Endotracheal Airway into Trachea, Via Natural or Artificial Opening (ICD-10-PCS; 2023-05-17)
PROC: 5A09357 Assistance with Respiratory Ventilation, Less than 24 Consecutive Hours, Continuous Positive Airway Pressure (ICD-10-PCS; 2023-05-17)
PROC: 0DH67UZ Insertion of Feeding Device into Stomach, Via Natural or Artificial Opening (ICD-10-PCS; 2023-05-17)
DX: T78.2XXA Anaphylactic shock, unspecified, initial encounter (principal); J96.01 Acute respiratory failure with hypoxia; N39.0 Urinary tract infection, site not specified; N17.9 Acute kidney failure, unspecified; E87.5 Hyperkalemia; S09.90XA Unspecified injury of head, initial encounter; I10 Essential (primary) hypertension; G89.4 Chronic pain syndrome; E78.5 Hyperlipidemia, unspecified; I35.0 Nonrheumatic aortic (valve) stenosis; E66.9 Obesity, unspecified; F32.A Depression, unspecified; D50.9 Iron deficiency anemia, unspecified; M54.9 Dorsalgia, unspecified; R33.9 Retention of urine, unspecified; Z20.822 Contact with and (suspected) exposure to COVID-19; W19.XXXA Unspecified fall, initial encounter; R01.1 Cardiac murmur, unspecified; E87.6 Hypokalemia; M79.605 Pain in left leg; J98.01 Acute bronchospasm; E11.42 Type 2 diabetes mellitus with diabetic polyneuropathy; M89.8X9 Other specified disorders of bone, unspecified site; N20.0 Calculus of kidney; G47.00 Insomnia, unspecified; B95.4 Other streptococcus as the cause of diseases classified elsewhere; Z85.3 Personal history of malignant neoplasm of breast; Z92.3 Personal history of irradiation; Z90.710 Acquired absence of both cervix and uterus; Z88.0 Allergy status to penicillin; Z90.89 Acquired absence of other organs; Z87.442 Personal history of urinary calculi; Z98.1 Arthrodesis status; Z98.890 Other specified postprocedural states; Z90.49 Acquired absence of other specified parts of digestive tract; Z90.13 Acquired absence of bilateral breasts and nipples; Z96.611 Presence of right artificial shoulder joint; Z88.8 Allergy status to other drugs, medicaments and biological substances; Z68.35 Body mass index [BMI] 35.0-35.9, adult; Z88.1 Allergy status to other antibiotic agents; Z91.048 Other nonmedicinal substance allergy status; Z87.891 Personal history of nicotine dependence; Z79.899 Other long term (current) drug therapy
CPT/HCPCS: 0241U; 31500; 36415; 51702; 70450; 71045; 72070; 72100; 73030; 76770; 80048; 80053; 81001; 82550; 82803; 82947; 83036; 83605; 83735; 84100; 84145; 85014; 85018; 85025; 85027; 86850; 86900; 86901; 87040; 87070; 87086; 87205; 93005; 93010; 93306; 94002; 94003; 94640; 94645; 94664; 94762; 96361; 96365; 96375; 96376; 97110; 97116; 97162; 97166; 97530; 97535; 99285-25; A9270; C1751; C9113; J0171; J0330; J0360; J0612; J0696; J1200; J1644; J1815; J2060; J2185; J2704; J2920; J2930; J3010; J7030; J7050; P9612

== ENCOUNTER 2023-05-27 21:33 | Inpatient (IN) | payer OTHER ==
[~2023-05-27] VITALS: Ht 152.4 cm; Wt 80.9 kg
[~2023-05-27 21:33] MED LIST changes: +BENADRYL25 MG PO; +CENTRUM SILVER1 EAC2 PO; +CRANBERRY450 M1 PO; +Calcium Carbon500 MG PO; +MELATONIN5 M1 PO; +OXYACE7.5T PO; +OXYB5 PO; +TAMS.4ER PO
[2023-05-27 22:13] LABS: BASOPHILS ABSOLUTE AUTO 0.02 K/mm3 (0.00-0.23); BASOPHILS PERCENT AUTO 0 % (0-2); EOSINOPHILS ABSOLUTE AUTO 0.39 K/mm3 (0.00-0.68); EOSINOPHILS PERCENT AUTO 4 % (0-6); Hematocrit 27.2 % (33.0-51.0); Hemoglobin 8.2 g/dL (11.5-16.0); IMMATURE GRAN ABSOLUTE AUTO 0.13 K/mm3 (0.00-0.10); IMMATURE GRAN PERCENT AUTO 1 % (0-1); LYMPHOCYTES ABSOLUTE AUTO 1.61 K/mm3 (0.84-5.20); LYMPHOCYTES PERCENT AUTO 15 % (21-46); MONOCYTES PERCENT AUTO 12 % (4-13); Mean Corpuscular HGB 26.8 pg (26.0-34.0); Mean Corpuscular HGB Conc 30.1 g/dL (31.5-36.5); Mean Corpuscular Volume 89 fL (80-100); Mean Platelet Volume 10.1 fL (9.1-12.4); NEUTROPHILS PERCENT AUTO 67 % (41-73); Platelet Count 206 K/mm3 (150-400); RDW Coefficient Variation 17.1 % (11.7-14.2); RDW Standard Deviation 54.4 fL (35.1-46.3); Red Blood Cell Count 3.06 M/mm3 (3.80-5.20); White Blood Cell Count 10.45 K/mm3 (4.00-11.30)
[2023-05-27 22:39] LABS: Albumin, Blood 3.3 g/dL (3.4-5.0); Albumin/Globulin Ratio 0.8 (0.8-1.8); Bilirubin, Total 0.2 mg/dL (0.1-1.0); Bun/Creatinine Ratio 24.5 (12.0-20.0); Calcium, Blood 9.5 mg/dL (8.5-10.1); Creatinine, Blood 1.92 mg/dL (0.40-1.00); Globulin, Blood 4.1 g/dL (2.2-4.0); Potassium, Blood 5.4 mmol/L (3.5-5.5); Total Protein, Blood 7.4 g/dL (6.4-8.2)
[2023-05-27 23:09] LABS: Magnesium, Blood 2.4 mg/dL (1.6-2.4); Phosphorus, Blood 3.7 mg/dL (2.5-4.9); Thyroid Stimulating Hormone 1.67 uIU/mL (0.360-4.800)
[2023-05-27 23:52] LABS: Influenza A, PCR NEGATIVE (NEGATIVE); Influenza B, PCR NEGATIVE (NEGATIVE); Resp Syncytial Virus, PCR NEGATIVE (NEGATIVE); SARS-Cov-2 (COVID-19) PCR, MMC NEGATIVE (NEGATIVE)
[2023-05-28 01:07] LABS: Source, Urine Clean Catch
[2023-05-28 01:14] LABS: Bilirubin, Urine Neg (Neg); Blood, Urine 4+ (Neg); Glucose Qualitative, Urine Neg (Neg); Ketones, Urine Neg (Neg); Leukocyte Esterase, Urine 3+ (Neg); Nitrite, Urine Neg (Neg); Protein, Urine 3+ (Neg); Specific Gravity, Urine 1.015 (1.003-1.022); Urobilinogen, Urine NORM (Normal)
[2023-05-28 01:25] LABS: Appearance, Urine Cloudy (Clear); Color, Urine Yellow (P-Yellow)
[2023-05-28 01:27] LABS: White Blood Cells, Urine TNTC /hpf (0-5)
[2023-05-28 01:28] LABS: Bacteria Mod /hpf; Squamous Epithelial Cells Not Seen /hpf (Few)
[2023-05-28 02:04] LABS: U Amphetamine Screen Not Detected; U Barbituate Screen Not Detected; U Benzodiazapine Screen Not Detected; U Buprenorphine Screen Not Detected; U Cannabinoids Screen Not Detected; U Cocaine Screen Not Detected; U Methadone Screen Not Detected; U Methamphetamine Screen Not Detected; U Opiates Screen Not Detected; U Oxycodone Screen DETECTED; U Phencyclidine Screen Not Detected; U Propoxyphene Screen Not Detected
[2023-05-28 02:37] LABS: Base Excess Venous -0.6 mmol/L; Bicarbonate Venous 23.7 mmol/L (24.0-30.0); PCO2 Venous 56.8 mmHg (38-42); pH Blood Venous 7.27 (7.34-7.37)
[2023-05-28 05:13] LABS: BASOPHILS ABSOLUTE AUTO 0.02 K/mm3 (0.00-0.23); BASOPHILS PERCENT AUTO 0 % (0-2); EOSINOPHILS ABSOLUTE AUTO 0.35 K/mm3 (0.00-0.68); EOSINOPHILS PERCENT AUTO 4 % (0-6); Hemoglobin 7.8 g/dL (11.5-16.0); IMMATURE GRAN ABSOLUTE AUTO 0.11 K/mm3 (0.00-0.10); IMMATURE GRAN PERCENT AUTO 1 % (0-1); LYMPHOCYTES ABSOLUTE AUTO 1.25 K/mm3 (0.84-5.20); LYMPHOCYTES PERCENT AUTO 13 % (21-46); MONOCYTES PERCENT AUTO 13 % (4-13); Mean Corpuscular HGB 26.6 pg (26.0-34.0); Mean Corpuscular Volume 89 fL (80-100); Mean Platelet Volume 10.3 fL (9.1-12.4); NEUTROPHILS ABSOLUTE AUTO 6.45 K/mm3 (1.96-9.15); NEUTROPHILS PERCENT AUTO 69 % (41-73); Platelet Count 189 K/mm3 (150-400); RDW Coefficient Variation 16.9 % (11.7-14.2); RDW Standard Deviation 54.9 fL (35.1-46.3); Red Blood Cell Count 2.93 M/mm3 (3.80-5.20); White Blood Cell Count 9.38 K/mm3 (4.00-11.30)
[2023-05-28 05:29] LABS: Ethanol (Alcohol), Blood, Med <3 mg/dL; Salicylate <1.7 mg/dL (2.8-20.0)
[2023-05-28 05:35] LABS: Anion Gap 3 mmol/L (6-16); Blood Urea Nitrogen 43 mg/dL (8-24); Bun/Creatinine Ratio 25.9 (12.0-20.0); CO2, Blood 26 mmol/L (21-32); Calcium, Blood 9.1 mg/dL (8.5-10.1); Chloride, Blood 111 mmol/L (98-108); Creatinine, Blood 1.66 mg/dL (0.40-1.00); Glomerular Filtration Rate 32 (60-); Glucose, Blood 123 mg/dL (70-99); Potassium, Blood 5.2 mmol/L (3.5-5.5); Sodium, Blood 140 mmol/L (136-145)
[2023-05-28 05:36] LABS: Acetaminophen, Random <2.0 ug/mL (10.0-30.0)
--- NOTE | 2023-05-28 06:15 | NUR ---
ASSUMED CARE PT ARRIVED ON UNIT AT 0510. PT IS A&O X4; SPO2 >92% BIPAP 12/6 W/ 2L BLEED IN. PT DENIES CP, SOB, OR NAUSEA. PT ARRIVED ON UNIT NEEDING TO URINATE "BADLY" AND BLADDER SCAN/STRAIGHT CATH WAS PERFORMED; PT WAS UNABLE TO URINATE ON BEDPAN. PERRLA; VSS. LUNG SOUNDS CLEAR BILATERALLY; BT AUSCULTATED IN X4 QUADRANTS. RADIAL AND PEDAL PULSES PALPATED. PT IS RESTING QUIETLY AT THIS TIME.
[2023-05-28 06:36] LABS: Osmolality, Serum 305 mos/KG (275-300)
[2023-05-28 06:58] LABS: Base Excess Venous -1.3 mmol/L; Bicarbonate Venous 23.3 mmol/L (24.0-30.0); pH Blood Venous 7.34 (7.34-7.37)
[2023-05-28 07:04] LABS: BASOPHILS ABSOLUTE AUTO 0.02 K/mm3 (0.00-0.23); BASOPHILS PERCENT AUTO 0 % (0-2); EOSINOPHILS ABSOLUTE AUTO 0.28 K/mm3 (0.00-0.68); EOSINOPHILS PERCENT AUTO 3 % (0-6); Hematocrit 26.4 % (33.0-51.0); Hemoglobin 7.9 g/dL (11.5-16.0); IMMATURE GRAN ABSOLUTE AUTO 0.11 K/mm3 (0.00-0.10); IMMATURE GRAN PERCENT AUTO 1 % (0-1); LYMPHOCYTES ABSOLUTE AUTO 1.36 K/mm3 (0.84-5.20); LYMPHOCYTES PERCENT AUTO 13 % (21-46); MONOCYTES ABSOLUTE AUTO 1.19 K/mm3 (0.16-1.47); MONOCYTES PERCENT AUTO 11 % (4-13); Mean Corpuscular HGB 26.4 pg (26.0-34.0); Mean Corpuscular HGB Conc 29.9 g/dL (31.5-36.5); Mean Corpuscular Volume 88 fL (80-100); Mean Platelet Volume 10.2 fL (9.1-12.4); NEUTROPHILS ABSOLUTE AUTO 7.78 K/mm3 (1.96-9.15); NEUTROPHILS PERCENT AUTO 72 % (41-73); Platelet Count 188 K/mm3 (150-400); RDW Coefficient Variation 16.9 % (11.7-14.2); RDW Standard Deviation 53.6 fL (35.1-46.3); Red Blood Cell Count 2.99 M/mm3 (3.80-5.20); White Blood Cell Count 10.74 K/mm3 (4.00-11.30)
[2023-05-28 07:28] LABS: Albumin/Globulin Ratio 0.8 (0.8-1.8); Bilirubin, Total 0.3 mg/dL (0.1-1.0); Creatinine, Blood 1.54 mg/dL (0.40-1.00); Globulin, Blood 3.7 g/dL (2.2-4.0); Potassium, Blood 5.2 mmol/L (3.5-5.5); Total Protein, Blood 6.7 g/dL (6.4-8.2)
[2023-05-28 09:05] VITALS: BP 127/79
--- NOTE | 2023-05-28 11:50 | NUR ---
PT A/O X4 TODAY. WILL SLEEP IF UNDISTURBED. ON 2L NC SHE WILL DESAT TO 86% WHEN SLEEPING ON RA. PT WAKES EASILY FROM SLEEP TO NAME. HAS ESSENTIAL TREMOR AT BASELINE. PT WAS ABLE TO GET TO BSC WITH 1 PERSON ASSIST AND VOIDED WITHOUT ISSUE.
--- NOTE | 2023-05-28 13:20 | NUR ---
PT CONTINUES TO BE A/O. GETTING OOB TO BSC WITH 1 PERSON ASSIST AND VOIDING WITHOUT ISSUE. ON 2L NC MAINLY D/T DESATTING WHILE SLEEPING. BEING TRANSFERED TO ROOM 309, TAKEN VIA W/C BY PCT. NO SIGN OF DISTRESS.
[2023-05-28 13:37] VITALS: BP 130/49
[2023-05-28] MEDS ORDERED: SULFAMETHOXAZO1 EACH PO (14:53)
[2023-05-28] MEDS ORDERED: ONDA4 PO (14:56)
[2023-05-28] MEDS ORDERED: POTA10T PO (14:56)
[2023-05-28 16:54] VITALS: BP 124/50
--- NOTE | 2023-05-28 18:35 | NUR ---
SHIFT SUMMARY PT AXO, PLEASANT AND COOPERATIVE WITH CARE. PT TRANSFERED FROM ICU5 THIS SHIFT. NO ACUTE CHANGES THIS SHIFT. VSS. PT'S DAUGHTER AND CAREGIVER CALLED THIS NURSE FOR AN UPDATE WHICH WAS PROVIDED. BERNABE, PATIENT'S CAREGIVER ASKED IF DR REECE COULD BE CONSULTED AND EXPRESSED CONCERNS ABOUT SOME STENTS PT HAS IN PLACE. DR CAMEJO NOTIFIED. SHE ALSO REQUESTED A CALL FOR UPDATES TOMORROW. HER PHONE NUMBER IS [phone]. BED IN LOW POSITION, CALL LIGHT WITHIN REACH. PT IS UP OOB WITH 1 ASSIST, FWW AND GB. PT ON 2L VIA NC AT 99%, THIS NURSE TO GIVE REPORT AND SUGGEST WEANING O2. IV PATENT AND INFUSING PER EMAR.
[2023-05-28 19:45] VITALS: BP 121/46
[2023-05-29 02:11] VITALS: BP 138/57
[2023-05-29 04:21] LABS: Hematocrit 25.3 % (33.0-51.0); Hemoglobin 7.6 g/dL (11.5-16.0)
[2023-05-29 04:47] LABS: Anion Gap 4 mmol/L (6-16); Blood Urea Nitrogen 30 mg/dL (8-24); Bun/Creatinine Ratio 25.6 (12.0-20.0); CO2, Blood 26 mmol/L (21-32); Calcium, Blood 8.9 mg/dL (8.5-10.1); Chloride, Blood 111 mmol/L (98-108); Creatinine, Blood 1.17 mg/dL (0.40-1.00); Glomerular Filtration Rate 49 (60-); Glucose, Blood 111 mg/dL (70-99); Potassium, Blood 4.8 mmol/L (3.5-5.5); Sodium, Blood 141 mmol/L (136-145); Vancomycin, Trough 11.1 ug/mL (5.0-10.0)
--- NOTE | 2023-05-29 06:08 | NUR ---
NOC SHIFT SUMMARY: READMITTED WITH UTI. MEROPENEM AND VANCO CONTINUE. FENTANYL ORDERED FOR PAIN CONTROL (USUALLY TAKES PERCOCET). BLOOD SUGARS AC ONLY. UP WITH 1 ASSIST TO BSC. A&O X4. LIVES AT [facility].
[2023-05-29 07:11] VITALS: BP 125/49
--- NOTE | 2023-05-29 09:38 | NUR ---
RN NOTE BLADDER SCAN 258CC 40 MINUTES POST VOID
--- NOTE | 2023-05-29 11:42 | NUR ---
BLADDER SCAN 101CC IMMEDIATELY POST LARGE VOID.
--- NOTE | 2023-05-29 15:25 | NUR ---
SHIFT SUMMARY MS VILLASENOR IS ORIENTATED X4, APPROPRIATE CONVERSATION. UP TO BEDSIDE COMMODE AND SAT IN CHAIR TODAY, TRANSFERING WITH GAIT BELT AND 1 PERSON ASSISTANCE. ON ROOM AIR TODAY SATS IN THE 90S, DENIES SOB, TALKING IN FULL SENTENCES WITHOUT DIFFICULTY. C/O BACK PAIN WHICH WAS HELPED WITH PERCOCET AND RIGHT BUTTOCK PAIN. NO BRUISE ON R BUTTOCK, NO REDNESS. SHE SAID SHE HAS HAD R BUTTOCK PAIN SINCE SHE FELL. BLADDER SCAN 101 POST VOID. BED LOW, CALL LIGHT IN REACH.
[2023-05-29 17:12] VITALS: BP 143/60
[2023-05-29 19:48] VITALS: BP 124/50
[2023-05-30 05:07] VITALS: BP 112/56
[2023-05-30 05:10] LABS: Hematocrit 25.8 % (33.0-51.0); Hemoglobin 7.8 g/dL (11.5-16.0)
--- NOTE | 2023-05-30 05:19 | NUR ---
POSSIBLE DISCHARGE BACK TO [facility] TODAY. PERCOCET GIVEN ONCE. [facility] IS TRENDING DOWN.
[2023-05-30 05:47] LABS: Bun/Creatinine Ratio 20.2 (12.0-20.0); Calcium, Blood 9.5 mg/dL (8.5-10.1); Creatinine, Blood 1.04 mg/dL (0.40-1.00); Potassium, Blood 4.6 mmol/L (3.5-5.5)
[2023-05-30 07:33] VITALS: BP 117/54
[2023-05-30] MEDS ORDERED: LORA10ER PO (11:03)
--- NOTE | 2023-05-30 11:27 | NUR ---
I SPOKE TO KESHIA AT [facility]: MEDICATION LIST FAXED TO [facility]. THEY ARE READY TO ACCEPT HER ANYTIME TODAY.
--- NOTE | 2023-05-30 11:41 | NUR ---
MS JACKLYN VERBALISED GOOD UNDERSTANDING OF WRITTEN AND VERBAL DISCHARGE INSTRUCTIONS, INCLUDING SS BACTRIM PO QOD, NEXT DOSE 06/01. PIV REMOVED INTACT. TRANSPORT BEING BOOKED FOR DISCHARGE TO [facility].
[2023-05-30 15:13] VITALS: BP 107/53
--- NOTE | 2023-05-30 16:15 | NUR ---
SHIFT SUMMARY MS VILLASENOR IS READY FOR TRANSPORT BACK TO [facility], DRESSED, PIV REMOVED, HAS DISCHARGE INSTRUCTION PACKET. DELAY WITH AMBULANCE TRANSPORTATION. MS VILLASENOR IS RESTING, TOOK PERCOCET FOR BACK PAIN, LESS C/O RIGHT BUTTOCK PAIN TODAY. BED LOW, CALL LIGHT IN REACH.
--- NOTE | 2023-05-30 16:37 | NUR ---
DISCHARGE VIA W/C TRANSPORT AT 1637HRS
== END 2023-05-30 16:48 | disposition home or self-care (01) | DRG 689 ==
LOC: ER 21:33 → PCU 05-28 03:25 → MEDS 05-28 03:25 → ICUE 05-28 03:25 → MEDS 05-28 13:34 → ENPENDDIS 05-30 10:34 → MEDS 05-30 16:48
PROVIDERS: Emergency Medicine; Family Medicine; ADMIT Internal Medicine
DX: N39.0 Urinary tract infection, site not specified (principal); G92.8 Other toxic encephalopathy; J96.02 Acute respiratory failure with hypercapnia; N17.9 Acute kidney failure, unspecified; N20.0 Calculus of kidney; N18.30 Chronic kidney disease, stage 3 unspecified; E11.22 Type 2 diabetes mellitus with diabetic chronic kidney disease; E66.9 Obesity, unspecified; Z66 Do not resuscitate; I12.9 Hypertensive chronic kidney disease with stage 1 through stage 4 chronic kidney disease, or unspecified chronic kidney disease; M54.9 Dorsalgia, unspecified; D50.9 Iron deficiency anemia, unspecified; F32.A Depression, unspecified; G89.29 Other chronic pain; E86.0 Dehydration; D63.1 Anemia in chronic kidney disease; I35.0 Nonrheumatic aortic (valve) stenosis; G47.00 Insomnia, unspecified; Z88.1 Allergy status to other antibiotic agents; Z87.442 Personal history of urinary calculi; Z88.0 Allergy status to penicillin; Z88.7 Allergy status to serum and vaccine; Z88.8 Allergy status to other drugs, medicaments and biological substances; Z90.710 Acquired absence of both cervix and uterus; Z90.49 Acquired absence of other specified parts of digestive tract; Z90.89 Acquired absence of other organs; Z85.3 Personal history of malignant neoplasm of breast; Z98.890 Other specified postprocedural states; Z87.891 Personal history of nicotine dependence; Z90.13 Acquired absence of bilateral breasts and nipples; Z11.52 Encounter for screening for COVID-19; Z68.35 Body mass index [BMI] 35.0-35.9, adult
CPT/HCPCS: 0241U; 36415; 51701; 51798; 71046; 80048; 80053; 80202; 81001; 82140; 82803; 82947; 83605; 83735; 83880; 83930; 84100; 84443; 84484; 85014; 85018; 85025; 87040; 87086; 93005; 93010; 94660; 94762; 96361; 96374; 96375; 99285-25; A9270; G0480; J1650; J2185; J3010; J3370; J7030; J7050

== ENCOUNTER → 2023-06-04 | Outpatient (CLI) | payer OTHER ==
[~2023-06-04] MED LIST changes: +LORA10ER PO; +ONDA4 PO; +POTA10T PO; +SULFAMETHOXAZO1 EACH PO
== END ==
LOC: LAB SHORT 16:30 → LAB 16:30
DX: R30.0 Dysuria (principal)
CPT/HCPCS: 87086

== ENCOUNTER → 2023-07-16 | Outpatient (CLI) | payer OTHER | LOC: LAB 16:52 → LAB SHORT 16:52 | DX: N39.0 Urinary tract infection, site not specified (principal) | CPT/HCPCS: 87086 ==

== ENCOUNTER 2023-07-28 10:21 | Inpatient (IN) | payer OTHER ==
[~2023-07-28] VITALS: Ht 152.4 cm; Wt 83.6 kg
[2023-07-28 11:10] LABS: BASOPHILS ABSOLUTE AUTO 0.05 K/mm3 (0.00-0.23); BASOPHILS PERCENT AUTO 1 % (0-2); EOSINOPHILS ABSOLUTE AUTO 0.04 K/mm3 (0.00-0.68); EOSINOPHILS PERCENT AUTO 0 % (0-6); Hematocrit 21.9 % (33.0-51.0); Hemoglobin 6.5 g/dL (11.5-16.0); IMMATURE GRAN ABSOLUTE AUTO 0.11 K/mm3 (0.00-0.10); IMMATURE GRAN PERCENT AUTO 1 % (0-1); LYMPHOCYTES PERCENT AUTO 13 % (21-46); MONOCYTES ABSOLUTE AUTO 1.39 K/mm3 (0.16-1.47); MONOCYTES PERCENT AUTO 14 % (4-13); Mean Corpuscular HGB 24.7 pg (26.0-34.0); Mean Corpuscular HGB Conc 29.7 g/dL (31.5-36.5); Mean Corpuscular Volume 83 fL (80-100); Mean Platelet Volume 9.5 fL (9.1-12.4); NEUTROPHILS ABSOLUTE AUTO 7.36 K/mm3 (1.96-9.15); NEUTROPHILS PERCENT AUTO 72 % (41-73); Platelet Count 284 K/mm3 (150-400); RDW Coefficient Variation 16.9 % (11.7-14.2); RDW Standard Deviation 51.4 fL (35.1-46.3); Red Blood Cell Count 2.63 M/mm3 (3.80-5.20); White Blood Cell Count 10.25 K/mm3 (4.00-11.30)
[2023-07-28 11:31] LABS: Albumin, Blood 2.5 g/dL (3.4-5.0); Albumin/Globulin Ratio 0.6 (0.8-1.8); Bilirubin, Total 0.3 mg/dL (0.1-1.0); Bun/Creatinine Ratio 26.2 (12.0-20.0); Calcium, Blood 9.1 mg/dL (8.5-10.1); Creatinine, Blood 1.91 mg/dL (0.40-1.00); Globulin, Blood 4.2 g/dL (2.2-4.0); Potassium, Blood 4.9 mmol/L (3.5-5.5); Total Protein, Blood 6.7 g/dL (6.4-8.2)
[2023-07-28 13:00] LABS: Source, Urine Clean Catch
[2023-07-28 13:04] LABS: Appearance, Urine Turbid (Clear); Bilirubin, Urine Neg (Neg); Blood, Urine 5+ (Neg); Color, Urine Yellow (P-Yellow); Glucose Qualitative, Urine Neg (Neg); Ketones, Urine Neg (Neg); Leukocyte Esterase, Urine 3+ (Neg); Nitrite, Urine Neg (Neg); Protein, Urine 3+ (Neg); Specific Gravity, Urine 1.015 (1.003-1.022); Urobilinogen, Urine NORM (Normal)
[2023-07-28 13:14] LABS: Red Blood Cells, Urine 25-50 /hpf (0-2); White Blood Cells, Urine TNTC /hpf (0-5)
[2023-07-28 13:16] LABS: Bacteria Many /hpf; Squamous Epithelial Cells Few /hpf (Few)
[2023-07-28] MEDS ORDERED: LOSA25 PO (18:40)
[2023-07-28] MEDS ORDERED: PERCOCET 10-321 EA12 PO (18:41)
[2023-07-28 20:22] VITALS: BP 129/50
[2023-07-29 05:30] VITALS: BP 129/53
[2023-07-29 05:53] LABS: Hematocrit 28.3 % (33.0-51.0); Hemoglobin 8.7 g/dL (11.5-16.0); Mean Corpuscular HGB 25.8 pg (26.0-34.0); Mean Corpuscular HGB Conc 30.7 g/dL (31.5-36.5); Mean Corpuscular Volume 84 fL (80-100); Mean Platelet Volume 9.3 fL (9.1-12.4); Platelet Count 268 K/mm3 (150-400); RDW Coefficient Variation 16.2 % (11.7-14.2); RDW Standard Deviation 49.5 fL (35.1-46.3); Red Blood Cell Count 3.37 M/mm3 (3.80-5.20); White Blood Cell Count 11.61 K/mm3 (4.00-11.30)
[2023-07-29 06:15] LABS: Albumin, Blood 2.2 g/dL (3.4-5.0); Anion Gap 1 mmol/L (6-16); Blood Urea Nitrogen 34 mg/dL (8-24); CO2, Blood 25 mmol/L (21-32); Calcium, Blood 9.1 mg/dL (8.5-10.1); Chloride, Blood 117 mmol/L (98-108); Creatinine, Blood 1.36 mg/dL (0.40-1.00); Glomerular Filtration Rate 41 (60-); Glucose, Blood 132 mg/dL (70-99); Magnesium, Blood 2.1 mg/dL (1.6-2.4); Phosphorus, Blood 3.2 mg/dL (2.5-4.9); Potassium, Blood 5.1 mmol/L (3.5-5.5); Sodium, Blood 143 mmol/L (136-145)
[2023-07-29 07:21] VITALS: BP 120/44
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
[2023-07-29 15:28] VITALS: BP 105/47
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
--- NOTE | 2023-07-29 17:20 | NUR ---
DAYSHIFT SUMMARY Patient alert & oriented x4, complaining of chronic back pain & severe pain in coccyx d/t recent fall. Oxycodone increased to 15mg, & 1 time dose of IV fentynal given for pain. XR ABD/pelvis ordered, results did not show fx. IV ABX administred for UTI, sevilla cath in place, yellow/cloudy urine noted. Vitals stable. CBGs >170, Humalog SSI administred. RN from [place] called for update. Will continue plan of care.
[2023-07-29 20:14] VITALS: BP 110/46
[2023-07-30 02:39] VITALS: BP 134/43
[2023-07-30 05:14] LABS: Hematocrit 28.9 % (33.0-51.0); Mean Corpuscular HGB 26.1 pg (26.0-34.0); Mean Corpuscular HGB Conc 31.1 g/dL (31.5-36.5); Mean Corpuscular Volume 84 fL (80-100); Mean Platelet Volume 9.3 fL (9.1-12.4); Platelet Count 284 K/mm3 (150-400); RDW Coefficient Variation 16.3 % (11.7-14.2); Red Blood Cell Count 3.45 M/mm3 (3.80-5.20); White Blood Cell Count 12.95 K/mm3 (4.00-11.30)
--- NOTE | 2023-07-30 05:45 | NUR ---
1900: ASSUMED CARE OF PT, BEDSIDE REPORT RECEIVED FROM JUSTIN RN. PT IS FOUND TO BE LAYING ON HER RIGHT SIDE. A/O, VSS. REPORTS PAIN IN HER TAILBONE, NEGATIVE IMAGING WELL PAIN IN HER BLE. MEDICATED WITH PRN MEDICATIONS, SEE EMR. PT WAS ALBE TO SLEEP MOST OF THE NIGHT WITH TIMES ON INCREASED PAIN. ASSISTED IN BED FOR COMFORT. INDWELLING CATHETER DRAINING CLOUDY YELLOW URINE WITH SEDIMENT AND MUCUS. ABX PROVIDED PER ORDERS. SAFETY MEASURES TAKEN THROUGHOUT SHIFT, CALL LIGHT WTHIN REACH. NEEDS MET.
[2023-07-30 06:37] LABS: Bun/Creatinine Ratio 19.7 (12.0-20.0); Calcium, Blood 9.1 mg/dL (8.5-10.1); Creatinine, Blood 1.27 mg/dL (0.40-1.00); Potassium, Blood 4.5 mmol/L (3.5-5.5)
[2023-07-30 07:11] VITALS: BP 131/55
[2023-07-30 15:35] VITALS: BP 134/48
--- NOTE | 2023-07-30 18:43 | NUR ---
SHIFT SUMMARY; PATIENT VERY PAINFULL DURING DAY. MEDICATED Q6 PRN PAIN WITH OXYCODONE 15MG PO. PATIENT NOTED TO CRY OFTEN IN ROOM. IS CONSOLABLE AND IS TURNED TO PREVENT SKIN BREAKDOWN. PATIENT IS COOPERATIVE WITH CARE USES CALL LIGHT APPROPRIATELY. NEW MEDICATION PYRIDIUM. VITAL SIGNS ARE WNL. LUNGS DIM BUT CLEAR.
[2023-07-30 20:04] VITALS: BP 136/49
[2023-07-31 02:46] VITALS: BP 121/57
--- NOTE | 2023-07-31 03:26 | NUR ---
END OF SHIFT SUMMARY PT A&O x4, VSS, AFEBRILE, PT ON RA. PT PLEASANT AND COOPERATIVE WITH CARE PROVIDED. PT REQUESTED PAIN MEDICATION FOR DISCOMFORT TO LOWER BACK AND R LEG AND ARM. PAIN MANAGED WITH PRN ALTERNATING OXYCODONE AND APAP. PT SLEPT WELL OVERNIGHT. VIDAL CATH IN PLACE, PATENT DRAINING ORANGE/YELLOW URINE. NEW ORDER/FIRST DOSE OF 90mg CYMBALTA GIVEN ON NOC SHIFT LAST NIGHT, PT STATED THAT SHE TAKES 90mg AT BEDTIME. FREQUENT SAFETY CHECKS COMPLETED THROUGHOUT THE SHIFT. CALL LIGHT WITHIN REACH, WC. 0300: PT APPEARS TO BE SLEEPING COMFORTABLY, EYES CLOSED.
[2023-07-31 07:29] VITALS: BP 128/61
[2023-07-31] MEDS ORDERED: Pyridium100 MG PO (10:42)
[2023-07-31] MEDS ORDERED: SULTRIDS PO (11:06)
[2023-07-31 15:24] VITALS: BP 131/62
--- NOTE | 2023-07-31 17:28 | NUR ---
SHIFT/DC SUMMARY Pt remains A&O x3. Lower back/pelvic pain managed with meds. IV Ativan x1 effective for increased anxiety/pain. VSS. Resp even nonlabored on RA. Up to BSC with min ast. Voiding. All discharge instructions reviewed with pt. Report given to jakob Ferrari and ESTEBAN Gil from [facility]. transport to transfer at 1800.
== END 2023-07-31 18:20 | disposition home or self-care (01) | DRG 699 ==
LOC: ER 10:21 → MEDS 16:44 → ENPENDDIS 07-31 09:25 → MEDS 07-31 18:20
PROVIDERS: Emergency Medicine; ADMIT Internal Medicine
PROC: 30233N1 Transfusion of Nonautologous Red Blood Cells into Peripheral Vein, Percutaneous Approach (ICD-10-PCS; principal; 2023-07-28)
DX: T83.511A Infection and inflammatory reaction due to indwelling urethral catheter, initial encounter (principal); N13.6 Pyonephrosis; N20.2 Calculus of kidney with calculus of ureter; N17.9 Acute kidney failure, unspecified; N18.30 Chronic kidney disease, stage 3 unspecified; D63.1 Anemia in chronic kidney disease; I35.0 Nonrheumatic aortic (valve) stenosis; M54.9 Dorsalgia, unspecified; E11.22 Type 2 diabetes mellitus with diabetic chronic kidney disease; I12.9 Hypertensive chronic kidney disease with stage 1 through stage 4 chronic kidney disease, or unspecified chronic kidney disease; F32.A Depression, unspecified; E78.5 Hyperlipidemia, unspecified; D50.9 Iron deficiency anemia, unspecified; E66.9 Obesity, unspecified; N32.0 Bladder-neck obstruction; G89.4 Chronic pain syndrome; F41.9 Anxiety disorder, unspecified; F11.90 Opioid use, unspecified, uncomplicated; Z88.0 Allergy status to penicillin; Z88.1 Allergy status to other antibiotic agents; Z88.8 Allergy status to other drugs, medicaments and biological substances; Z88.7 Allergy status to serum and vaccine; Z79.899 Other long term (current) drug therapy; Z85.3 Personal history of malignant neoplasm of breast; Z87.440 Personal history of urinary (tract) infections; Z90.710 Acquired absence of both cervix and uterus; Z90.49 Acquired absence of other specified parts of digestive tract; Z90.89 Acquired absence of other organs; Z90.13 Acquired absence of bilateral breasts and nipples; Z98.890 Other specified postprocedural states; Z87.891 Personal history of nicotine dependence; Z99.3 Dependence on wheelchair; Z68.31 Body mass index [BMI] 31.0-31.9, adult; Y84.6 Urinary catheterization as the cause of abnormal reaction of the patient, or of later complication, without mention of misadventure at the time of the procedure
CPT/HCPCS: 36415; 36430; 51702; 70450; 72125; 72220; 76770; 80048; 80053; 80069; 81001; 82947; 83605; 83735; 83880; 85025; 85027; 86850; 86900; 86901; 86923; 87040; 87086; 93005; 93010; 96365; 96375; 99285-25; A9270; J2060; J2185; J2270; J3010; J7030; J7050; P9016

== ENCOUNTER 2023-08-06 03:37 | Inpatient (IN) | payer OTHER ==
[~2023-08-06] VITALS: Ht 162.6 cm; Wt 78.0 kg
[~2023-08-06 03:37] MED LIST changes: +PERCOCET 10-321 EA12 PO; +Pyridium100 MG PO
[2023-08-06 04:03] LABS: Source, Urine Foley catheter
[2023-08-06 04:06] LABS: Bilirubin, Urine Neg (Neg); Blood, Urine 5+ (Neg); Glucose Qualitative, Urine Neg (Neg); Ketones, Urine Neg (Neg); Leukocyte Esterase, Urine 3+ (Neg); Nitrite, Urine Neg (Neg); Protein, Urine 3+ (Neg); Specific Gravity, Urine 1.015 (1.003-1.022); Urobilinogen, Urine NORM (Normal)
[2023-08-06 04:07] LABS: BASOPHILS ABSOLUTE AUTO 0.09 K/mm3 (0.00-0.23); BASOPHILS PERCENT AUTO 1 % (0-2); EOSINOPHILS ABSOLUTE AUTO 0.64 K/mm3 (0.00-0.68); EOSINOPHILS PERCENT AUTO 6 % (0-6); Hematocrit 30.7 % (33.0-51.0); Hemoglobin 9.2 g/dL (11.5-16.0); IMMATURE GRAN ABSOLUTE AUTO 0.16 K/mm3 (0.00-0.10); IMMATURE GRAN PERCENT AUTO 2 % (0-1); LYMPHOCYTES ABSOLUTE AUTO 1.83 K/mm3 (0.84-5.20); LYMPHOCYTES PERCENT AUTO 18 % (21-46); MONOCYTES ABSOLUTE AUTO 1.26 K/mm3 (0.16-1.47); MONOCYTES PERCENT AUTO 12 % (4-13); Mean Corpuscular HGB 25.6 pg (26.0-34.0); Mean Corpuscular Volume 85 fL (80-100); Mean Platelet Volume 9.7 fL (9.1-12.4); NEUTROPHILS ABSOLUTE AUTO 6.47 K/mm3 (1.96-9.15); NEUTROPHILS PERCENT AUTO 62 % (41-73); Platelet Count 497 K/mm3 (150-400); RDW Coefficient Variation 16.9 % (11.7-14.2); RDW Standard Deviation 52.1 fL (35.1-46.3); White Blood Cell Count 10.45 K/mm3 (4.00-11.30)
[2023-08-06 04:15] LABS: Appearance, Urine Turbid (Clear); Color, Urine Pale Yellow (P-Yellow)
[2023-08-06 04:18] LABS: Albumin, Blood 2.8 g/dL (3.4-5.0); Albumin/Globulin Ratio 0.6 (0.8-1.8); Bilirubin, Total 0.2 mg/dL (0.1-1.0); Bun/Creatinine Ratio 33.8 (12.0-20.0); Calcium, Blood 9.4 mg/dL (8.5-10.1); Creatinine, Blood 2.28 mg/dL (0.40-1.00); Globulin, Blood 4.6 g/dL (2.2-4.0); Potassium, Blood 5.8 mmol/L (3.5-5.5); Total Protein, Blood 7.4 g/dL (6.4-8.2)
[2023-08-06 04:20] LABS: Amorphous Mod (0-Heavy); Bacteria Mod /hpf; Red Blood Cells, Urine 0-2 /hpf (0-2); Squamous Epithelial Cells Not Seen /hpf (Few); White Blood Cells, Urine TNTC /hpf (0-5)
[2023-08-06 08:49] VITALS: BP 143/92
--- NOTE | 2023-08-06 09:00 | NUR ---
Pt arrived via gurney from ED, she is awake, a/ox3, cooperative with care, follows commands well, reports bad pain from leg cramps, yells out every time it happens, lungs are clear in upper zarco, dim in bases, resp even and unlabored, no cough noted, on r/a, hrr, tele in place running sr in the 70's, loud murmur noted, +1 edema noted to b/l le, appears that has been going down, pp faint, cap refill <3 sec, vs stable, afebrile, piv to lac site is clear and patent, bt x4, abd flat soft nontender, voids without diff, skin c/w/d, jonnie solomon, oriented to room layout and call system, call light in reach.
[2023-08-06 14:28] LABS: Bun/Creatinine Ratio 36.5 (12.0-20.0); Calcium, Blood 10.1 mg/dL (8.5-10.1); Creatinine, Blood 1.7 mg/dL (0.40-1.00)
--- NOTE | 2023-08-06 15:36 | NUR ---
pt painful, called for pain meds, he ordered her home dose, this was given. pt up to chair, she seems a bit more with it than when she first got here. call light in reach.
[2023-08-06 16:17] VITALS: BP 102/50
--- NOTE | 2023-08-06 18:04 | NUR ---
Pt was started on her pain meds, states helped but is still in pain, sat up in the chair for a while, is cold, so gave her a warm blanket. urine continues to be a bit turbid, no further changes this shift. call light in reach.
[2023-08-06 19:30] VITALS: BP 112/52
--- NOTE | 2023-08-07 04:25 | NUR ---
SHIFT SUMMARY PATIENT REPORTED NEUROPATHY PAIN AND REPORTS SHE HASN'T HAD HER BEDTIME DOSE OF LYRICA. HOSPITALIST JENNIE SCORE CALLER ORDERED LYRICA 100 MG FOR BEDTIME. BACLOFEN 10 MG GIVEN FOR MUSCLE CRAMPS. REPORTED LEG/FOOT PAIN AND OXYCODONE 10 MG GIVEN PER EMAR. PIV REMAINS INTACT. NS INFUSED 1.5 BAGS. TELE MONITOR NSR 76. VIDAL IN PLACE FOR RETENTION DRAINING TO GRAVITY. DENIES CHEST PAIN, SOB, AND N/V. VSS/AFEBRILE. WATCHED TV FIRST PART OF SHIFT. CALL LIGHT IN REACH. BED IN LOWEST POSITION. WILL CONTINUE TO MONITOR UNTIL DAY SHIFT NURSE ASSUMES CARE.
[2023-08-07 04:51] LABS: BASOPHILS ABSOLUTE AUTO 0.08 K/mm3 (0.00-0.23); BASOPHILS PERCENT AUTO 1 % (0-2); EOSINOPHILS ABSOLUTE AUTO 0.48 K/mm3 (0.00-0.68); EOSINOPHILS PERCENT AUTO 5 % (0-6); Hematocrit 29.6 % (33.0-51.0); Hemoglobin 8.8 g/dL (11.5-16.0); IMMATURE GRAN ABSOLUTE AUTO 0.19 K/mm3 (0.00-0.10); IMMATURE GRAN PERCENT AUTO 2 % (0-1); LYMPHOCYTES ABSOLUTE AUTO 2.28 K/mm3 (0.84-5.20); LYMPHOCYTES PERCENT AUTO 22 % (21-46); MONOCYTES ABSOLUTE AUTO 1.05 K/mm3 (0.16-1.47); MONOCYTES PERCENT AUTO 10 % (4-13); Mean Corpuscular HGB 25.2 pg (26.0-34.0); Mean Corpuscular HGB Conc 29.7 g/dL (31.5-36.5); Mean Corpuscular Volume 85 fL (80-100); Mean Platelet Volume 9.2 fL (9.1-12.4); NEUTROPHILS ABSOLUTE AUTO 6.24 K/mm3 (1.96-9.15); NEUTROPHILS PERCENT AUTO 60 % (41-73); Platelet Count 408 K/mm3 (150-400); RDW Coefficient Variation 16.6 % (11.7-14.2); RDW Standard Deviation 51.1 fL (35.1-46.3); Red Blood Cell Count 3.49 M/mm3 (3.80-5.20); White Blood Cell Count 10.32 K/mm3 (4.00-11.30)
[2023-08-07 04:56] VITALS: BP 127/58
[2023-08-07 05:21] LABS: Albumin, Blood 2.4 g/dL (3.4-5.0); Albumin/Globulin Ratio 0.6 (0.8-1.8); Bilirubin, Total 0.2 mg/dL (0.1-1.0); Bun/Creatinine Ratio 30.8 (12.0-20.0); Calcium, Blood 9.2 mg/dL (8.5-10.1); Creatinine, Blood 1.46 mg/dL (0.40-1.00); Globulin, Blood 4.1 g/dL (2.2-4.0); Potassium, Blood 4.9 mmol/L (3.5-5.5); Total Protein, Blood 6.5 g/dL (6.4-8.2)
[2023-08-07 07:15] VITALS: BP 112/55
--- NOTE | 2023-08-07 09:06 | NUR ---
Pt laying in bed awake a/ox3, cooperative with care, seems frail and uncomfortable, pain meds given, lungs are clear dim in bases, resp even and unlabored, no cough noted, hrr, loud murmur noted, trace edema noted to b/l le, ppfaint, cap refill <3sec, vs stable, afebrile, iv site to lac site is clear and patent, btx4, abd flat soft tender in pelvic region, sevilla cath draining turbid urine, skin c/w/d, pale, maew, one person assist to jonnie lyn, call light in reach.
--- NOTE | 2023-08-07 14:05 | NUR ---
pt laying in bed, complaining of bladder spasms at times, did ask resident for some pyridium for that, she is getting in the chair for meals, no further changes. call light in reach. report to Mamadou ORELLANA.
[2023-08-07 14:29] VITALS: BP 124/51
--- NOTE | 2023-08-07 18:28 | NUR ---
PATIENT IS ALERT AND ORIENTED AND COOPERATIVE WITH CARE. MEDICATED FOR PAIN PER EMAR. VIDAL IS PATENT AND DRAINGING YELLOW URINE WITH SEDIMENT NOTED IN TUBING. NORMAL SALINE IS RUNNING AT 75 ML/HR. ON RA. WILL CONTINUE TO MONITOR
[2023-08-07 19:42] VITALS: BP 136/52
--- NOTE | 2023-08-08 04:49 | NUR ---
SHIFT SUMMARY KEVEN WAS ALERT AND FULLY ORIENTED ON ASSESSMENT. PT PLEASANT AND COOPERATIVE. C/O LEG SPASMS AND PAIN IN BACK AND PELVIS. PT DENIES SOB, AND C/P/PRESSURE. MEDICATED PER EMAR. DISCUSSED PAIN MANAGEMENT WITH PT, AND POTENTIAL NEED TO REVISE PAIN MANAGEMENT PLAN FOR BETTER COVERAGE. VIDAL DRAINING YELLOW URINE WITH SEDIMENT NO NEW COMPLAINTS TONIGHT. PT RESTING IN BED AT A LOW POSITION WITH THE CALL LIGHT IN REACH.
[2023-08-08 04:56] VITALS: BP 119/44
[2023-08-08 06:00] LABS: BASOPHILS ABSOLUTE AUTO 0.06 K/mm3 (0.00-0.23); BASOPHILS PERCENT AUTO 1 % (0-2); EOSINOPHILS ABSOLUTE AUTO 0.46 K/mm3 (0.00-0.68); EOSINOPHILS PERCENT AUTO 5 % (0-6); Hematocrit 29.2 % (33.0-51.0); Hemoglobin 8.7 g/dL (11.5-16.0); IMMATURE GRAN ABSOLUTE AUTO 0.16 K/mm3 (0.00-0.10); IMMATURE GRAN PERCENT AUTO 2 % (0-1); LYMPHOCYTES ABSOLUTE AUTO 2.15 K/mm3 (0.84-5.20); LYMPHOCYTES PERCENT AUTO 22 % (21-46); MONOCYTES ABSOLUTE AUTO 0.89 K/mm3 (0.16-1.47); MONOCYTES PERCENT AUTO 9 % (4-13); Mean Corpuscular HGB 25.4 pg (26.0-34.0); Mean Corpuscular HGB Conc 29.8 g/dL (31.5-36.5); Mean Corpuscular Volume 85 fL (80-100); Mean Platelet Volume 9.2 fL (9.1-12.4); NEUTROPHILS ABSOLUTE AUTO 5.98 K/mm3 (1.96-9.15); NEUTROPHILS PERCENT AUTO 62 % (41-73); Platelet Count 398 K/mm3 (150-400); RDW Coefficient Variation 16.4 % (11.7-14.2); RDW Standard Deviation 51.3 fL (35.1-46.3); Red Blood Cell Count 3.43 M/mm3 (3.80-5.20)
[2023-08-08 06:26] LABS: Albumin, Blood 2.4 g/dL (3.4-5.0); Albumin/Globulin Ratio 0.6 (0.8-1.8); Bilirubin, Total 0.1 mg/dL (0.1-1.0); Calcium, Blood 9.3 mg/dL (8.5-10.1); Creatinine, Blood 1.23 mg/dL (0.40-1.00); Total Protein, Blood 6.4 g/dL (6.4-8.2)
[2023-08-08 07:52] VITALS: BP 116/50
[2023-08-08 14:42] VITALS: BP 155/63
--- NOTE | 2023-08-08 18:29 | NUR ---
SHIFT SUMMARY DISCONTINUED VIDAL THIS SHIFT. ABLE TO VOID INTO BSC, C/O BURNING AND STABBING PAINS. WARM PAD GIVEN, PAIN MEDS GIVEN. DOC STATES KIDNEY FUNCTION INADEQUATE FOR PYRIDIUM. FENTANYL GIVEN THIS SHIFT WITH POOR CONTROL. WILL CONTINUE TO MONITOR
[2023-08-08 19:54] VITALS: BP 173/88
[2023-08-09 04:52] VITALS: BP 149/60
[2023-08-09 04:56] LABS: Hematocrit 31.8 % (33.0-51.0); Hemoglobin 9.7 g/dL (11.5-16.0)
--- NOTE | 2023-08-09 05:06 | NUR ---
SHIFT SUMMARY NOC PT A/O X 4. PLEASANT AND COOPERATIVE WITH CARE. PT HAD VIDAL REMOVED YESTERDAY AND HAS USED BSC NUMEROUS TIMES WITH AT LEAST 200ML OUTPUT EACH TIME. PT HAS HAD C/O OF PELVIC PAIN AND MEDICATED PER EMAR. PT CBG 205 WITH CNI. PT HAD ELEVATED BP DUE TO PAIN AND ORDER OBTAINED FOR PO 5MG NORVASC. PT POSSIBLE DISCHARGE BACK TO [facility] TODAY. PT IS CURRENTLY RESTING WITH BED IN LOWEST POSITION, AND CALL LIGHT WITHIN REACH.
[2023-08-09 05:19] LABS: Albumin, Blood 2.8 g/dL (3.4-5.0); Albumin/Globulin Ratio 0.6 (0.8-1.8); Bilirubin, Total 0.2 mg/dL (0.1-1.0); Bun/Creatinine Ratio 21.1 (12.0-20.0); Calcium, Blood 9.8 mg/dL (8.5-10.1); Creatinine, Blood 1.23 mg/dL (0.40-1.00); Globulin, Blood 4.4 g/dL (2.2-4.0); Potassium, Blood 4.6 mmol/L (3.5-5.5); Total Protein, Blood 7.2 g/dL (6.4-8.2)
[2023-08-09 07:28] VITALS: BP 121/60
[2023-08-09 15:29] VITALS: BP 145/71
--- NOTE | 2023-08-09 15:45 | NUR ---
SHIFT SUMMARY PATIENT CONTINUES TO COMPLAIN OF PELVIC PAIN, LESS FREQUENTLY THAN YESTERDAY. ABLE TO GET UP MULTIPLE TIMES TO BS AND SIT IN CHAIR FOR MEALS. STARTED FLOMAX THIS SHIFT WITH NO ALLERGIC REACTION AT THIS TIME. BUTTOCK RED AND BLANCHABLE, SILICONE CREAM APPLIED SEVERAL TIMES. EDUCATED ON REPOSITIONING, DOES THIS WELL INDEPENDENTLY IN BED. URINE STILL APPEARS TURBID AND IS AT TIMES PINK TINGED. WILL CONTINUE TO MONITOR
[2023-08-09 19:48] VITALS: BP 106/53
--- NOTE | 2023-08-10 04:23 | NUR ---
SHIFT SUMMARY KEVEN WAS ALERT AND FULLY ORIENTED AT SHIFT ASSESSMENT. SHE IS STILL COMPLAINING OF SEVERE PAIN TO BLADDER AND BACK. PT MEDICATED FOR PAIN PER EMAR. PT HAS NO NEW COMPLAINTS, AND NO ACUTE EVENTS TONIGHT. PT AMBULATES BETWEEN BED AND CHAIR WITH 1 PERSON ASSIST. SHE IS CURRENTLY SLEEPING IN BED AT A LOW POSITION WITH THE CALL LIGHT IN REACH WHICH SHE USES APPROPRIATELY
[2023-08-10 04:36] VITALS: BP 114/46
[2023-08-10 06:14] LABS: BASOPHILS ABSOLUTE AUTO 0.07 K/mm3 (0.00-0.23); BASOPHILS PERCENT AUTO 1 % (0-2); EOSINOPHILS ABSOLUTE AUTO 0.41 K/mm3 (0.00-0.68); EOSINOPHILS PERCENT AUTO 3 % (0-6); Hemoglobin 8.9 g/dL (11.5-16.0); IMMATURE GRAN ABSOLUTE AUTO 0.15 K/mm3 (0.00-0.10); IMMATURE GRAN PERCENT AUTO 1 % (0-1); LYMPHOCYTES ABSOLUTE AUTO 2.09 K/mm3 (0.84-5.20); LYMPHOCYTES PERCENT AUTO 18 % (21-46); MONOCYTES ABSOLUTE AUTO 1.35 K/mm3 (0.16-1.47); MONOCYTES PERCENT AUTO 11 % (4-13); Mean Corpuscular HGB 25.9 pg (26.0-34.0); Mean Corpuscular HGB Conc 30.7 g/dL (31.5-36.5); Mean Corpuscular Volume 85 fL (80-100); Mean Platelet Volume 9.5 fL (9.1-12.4); NEUTROPHILS PERCENT AUTO 66 % (41-73); Platelet Count 405 K/mm3 (150-400); RDW Standard Deviation 52.3 fL (35.1-46.3); Red Blood Cell Count 3.43 M/mm3 (3.80-5.20); White Blood Cell Count 11.97 K/mm3 (4.00-11.30)
[2023-08-10 06:37] LABS: Albumin, Blood 2.7 g/dL (3.4-5.0); Albumin/Globulin Ratio 0.6 (0.8-1.8); Bilirubin, Total 0.2 mg/dL (0.1-1.0); Bun/Creatinine Ratio 21.9 (12.0-20.0); Calcium, Blood 9.6 mg/dL (8.5-10.1); Creatinine, Blood 1.69 mg/dL (0.40-1.00); Globulin, Blood 4.2 g/dL (2.2-4.0); Potassium, Blood 5.1 mmol/L (3.5-5.5); Total Protein, Blood 6.9 g/dL (6.4-8.2)
[2023-08-10 07:37] VITALS: BP 127/63
[2023-08-10] MEDS ORDERED: FLUC200 PO (11:32)
[2023-08-10] MEDS ORDERED: TAMS.4ER PO (11:33)
[2023-08-10 16:31] VITALS: BP 108/75
--- NOTE | 2023-08-10 16:58 | NUR ---
SHIFT SUMMARY: PT A/O X4, STANDBY ASSIST, PLEASANT AND COOPERATIVE WITH CARE. PT PAIN MANAGED WITH CURRENT ORAL PAIN MEDICATIONS. PT HAD BM TODAY, URINE VERY CLOUDY WITH PINK TINGE. GOOD APPETITE. BLOOD SUGARS MANAGED.
[2023-08-10 20:09] VITALS: BP 106/52
--- NOTE | 2023-08-11 04:58 | NUR ---
SHIFT SUMMARY PT A&O X4, COOPERATIVE WITH CARE. TREATED BLADDER PAIN PER EMAR. APPLIED HEAT PAD TO ABDOMEN FOR COMFORT. PUREWICK IN PLACE DRAINING CLOUDY PINK TINGED URINE. HS BS 203, NO COVERAGE INDICATED. PT SLEPT WELL T/O NIGHT. BED KEPT IN LWOEST POSITION WITH CALL LIGHT WITHIN REACH. WILL CONTINUE TO MONITOR UNTIL END OF SHIFT.
[2023-08-11 05:29] VITALS: BP 111/49
[2023-08-11 05:30] VITALS: BP 111/49
[2023-08-11 07:32] VITALS: BP 102/46
[2023-08-11] MEDS ORDERED: [UNRECOGNIZED DRUG - CODE] PO (13:55)
--- NOTE | 2023-08-11 14:58 | NUR ---
VERIFIED WITH PHARMACIST FREIDSAY TO GIVE MYCOFUNGIN IV MEDICATION NOW.
--- NOTE | 2023-08-11 16:20 | NUR ---
SHIFT SUMMARY: PT DOING WELL AT THIS TIME. PT TO GO HOME AT 1730. URINE HAS CLEARED UP AND IS NOW SLIGHTLY CLOUDY WITH LIGHT YELLOW URINE OUTPUT. MOD AMOUNT OF SEDIMENT. URINE IS FOAMY. PT PAIN IS BETTER CONTROLLED TODAY.
--- NOTE | 2023-08-11 17:55 | NUR ---
DC-1740 PT LEFT VIA TRANSPORT IN STABLE CONDITION. PT LEFT WITH ALL BELONGINGS.
[2023-08-13] MEDS ORDERED: TAMS.4ER PO (21:49)
== END 2023-08-11 17:40 | DRG 872 ==
LOC: ER 03:37 → ERHOLD 06:04 → MEDS 06:04
PROVIDERS: Emergency Medicine; Family Medicine; Student in an Organized Health Care Education/Training Program; ADMIT Internal Medicine
DX: A41.9 Sepsis, unspecified organism (principal); B37.49 Other urogenital candidiasis; N17.9 Acute kidney failure, unspecified; N13.6 Pyonephrosis; D64.9 Anemia, unspecified; I12.9 Hypertensive chronic kidney disease with stage 1 through stage 4 chronic kidney disease, or unspecified chronic kidney disease; E11.22 Type 2 diabetes mellitus with diabetic chronic kidney disease; N18.30 Chronic kidney disease, stage 3 unspecified; R33.9 Retention of urine, unspecified; E78.5 Hyperlipidemia, unspecified; G89.29 Other chronic pain; M54.9 Dorsalgia, unspecified; F32.A Depression, unspecified; Z91.048 Other nonmedicinal substance allergy status; E87.5 Hyperkalemia; E86.0 Dehydration; Z88.8 Allergy status to other drugs, medicaments and biological substances; Z88.1 Allergy status to other antibiotic agents; Z85.3 Personal history of malignant neoplasm of breast; Z96.0 Presence of urogenital implants
CPT/HCPCS: 36415; 51702; 76770; 80048; 80053; 81001; 82947; 85014; 85018; 85025; 87086; 87106; 93005; 93010; 99285-25; A9270; J0612; J1650; J1815; J1956; J2248; J3010; J7030

== ENCOUNTER 2023-08-13 16:27 | Observation (INO) | payer OTHER ==
[~2023-08-13] VITALS: Ht 157.5 cm; Wt 74.7 kg
[~2023-08-13 16:27] MED LIST changes: +FLUC200 PO; +[UNRECOGNIZED DRUG - CODE] PO
[2023-08-13] MEDS ORDERED: LORazepam 2 MG/ML 1ML Injection IV ONE (17:45)
[2023-08-13] MEDS ORDERED: Droperidol 5 mg/2 ml Vial IV ONE (18:00)
[2023-08-13 18:01] LABS: Source, Urine Foley catheter
[2023-08-13 18:22] LABS: BASOPHILS ABSOLUTE AUTO 0.05 K/mm3 (0.00-0.23); BASOPHILS PERCENT AUTO 0 % (0-2); EOSINOPHILS PERCENT AUTO 2 % (0-6); Hematocrit 30.9 % (33.0-51.0); Hemoglobin 9.4 g/dL (11.5-16.0); IMMATURE GRAN ABSOLUTE AUTO 0.12 K/mm3 (0.00-0.10); IMMATURE GRAN PERCENT AUTO 1 % (0-1); LYMPHOCYTES ABSOLUTE AUTO 1.09 K/mm3 (0.84-5.20); LYMPHOCYTES PERCENT AUTO 8 % (21-46); MONOCYTES ABSOLUTE AUTO 1.33 K/mm3 (0.16-1.47); MONOCYTES PERCENT AUTO 10 % (4-13); Mean Corpuscular HGB 25.8 pg (26.0-34.0); Mean Corpuscular HGB Conc 30.4 g/dL (31.5-36.5); Mean Corpuscular Volume 85 fL (80-100); Mean Platelet Volume 9.6 fL (9.1-12.4); NEUTROPHILS ABSOLUTE AUTO 10.94 K/mm3 (1.96-9.15); NEUTROPHILS PERCENT AUTO 80 % (41-73); Platelet Count 426 K/mm3 (150-400); RDW Coefficient Variation 16.9 % (11.7-14.2); RDW Standard Deviation 52.8 fL (35.1-46.3); Red Blood Cell Count 3.65 M/mm3 (3.80-5.20); White Blood Cell Count 13.73 K/mm3 (4.00-11.30)
[2023-08-13] MEDS ORDERED: Morphine Sulfate 4 MG/1 ML Injection IV ONE (18:25)
[2023-08-13 18:27] LABS: Appearance, Urine Turbid (Clear); Bilirubin, Urine Neg (Neg); Blood, Urine 5+ (Neg); Glucose Qualitative, Urine Neg (Neg); Ketones, Urine Neg (Neg); Leukocyte Esterase, Urine 3+ (Neg); Nitrite, Urine Neg (Neg); Protein, Urine 3+ (Neg); Specific Gravity, Urine 1.015 (1.003-1.022); Urobilinogen, Urine NORM (Normal)
[2023-08-13 18:33] LABS: Color, Urine Pale Yellow (P-Yellow)
[2023-08-13 18:41] LABS: White Blood Cells, Urine TNTC /hpf (0-5)
[2023-08-13 18:42] LABS: Bacteria Many /hpf; Squamous Epithelial Cells Not Seen /hpf (Few)
[2023-08-13] MEDS ORDERED: EZETIMIBE10 M6 PO (18:43)
[2023-08-13] MEDS ORDERED: LOSARTAN POTASS25 M2 PO (18:44)
[2023-08-13] MEDS ORDERED: MELATONIN1010 PO (18:45)
[2023-08-13] MEDS ORDERED: NITROFURANTOIN5012 PO (18:46)
[2023-08-13] MEDS ORDERED: OXYCODONE-ACET1 EA13 PO (18:47)
[2023-08-13 18:49] LABS: Albumin, Blood 2.8 g/dL (3.4-5.0); Albumin/Globulin Ratio 0.6 (0.8-1.8); Bilirubin, Total 0.3 mg/dL (0.1-1.0); Bun/Creatinine Ratio 21.8 (12.0-20.0); Calcium, Blood 9.9 mg/dL (8.5-10.1); Creatinine, Blood 3.12 mg/dL (0.40-1.00); Globulin, Blood 4.8 g/dL (2.2-4.0); Potassium, Blood 5.4 mmol/L (3.5-5.5); Total Protein, Blood 7.6 g/dL (6.4-8.2)
[2023-08-13] MEDS ORDERED: ACET500 PO (18:49)
[2023-08-13] MEDS ORDERED: LORazepam 2 MG/ML 1ML Injection IV PRN (20:30)
[2023-08-13] MEDS ORDERED: Morphine Sulfate 20 MG/1ML 1 ML Oral Syringe SL PRN (20:30)
[2023-08-13] MEDS ORDERED: Ondansetron HCl 2 MG / ML 2ML Vial IV PRN (20:35)
[2023-08-13] MEDS ORDERED: HYDROmorphone HCl/Pf 1MG SYR IV PRN (20:35)
[2023-08-13 23:35] VITALS: BP 104/44
--- NOTE | 2023-08-14 01:45 | NUR ---
PT ARRIVED TO MEDICAL UNIT AT 2315. CARE STAFF USED A BLACK DRAW SHEET TO TRANSFER PT FROM [facility] TO HOSPITAL BED. PT A&O x2 TO SELF AND TO PLACE. PT ADMITTED FOR MADHAVI/CKD, WITH CHANGES IN LEVEL OF CONSCIOUSNESS. PT HAS A VIDAL CATH, DRAINING MILKY WHITE URINE. UNABLE TO KEEP PT AWAKE LONG ENOUGH TO ASK ASSESSMENT QUESTIONS. PT ON 2L VIA NC, RESP RATE EVEN AND UNLABORED. PT ON COMFORT CARE. REPOSITIONED/Q2 TURNS FOR COMFORT. CALL LIGHT WITHIN REACH, WCTM.
--- NOTE | 2023-08-14 05:59 | NUR ---
END OF SHIFT SUMMARY PT APPEARS TO BE RESTING PEACEFULLY. PT REPOSITIONED LAST AT 0515. PAIN MEDICATION MANAGED WITH PRN IV DILAUDID AND PO ROXANOL. PRN IV ATIVAN GIVEN AND EFFECTIVE. VIDAL CATH IS DRAINING WELL, CATH CARE PROVIDED. PT'S LOWER EXTREMETIES ELEVATED WITH PILLOW SUPPORT, PT CAME IN WITH A NECK PILLOW WELL. ORAL CARE PROVIDED. FREQUENT SAFETY CHECKS COMPLETED. CALL LIGHT WITHIN REACH, WCTM.
[2023-08-14] MEDS ORDERED: Lactated Ringer's 1,000 ML IV SCH ×2 (12:10→13:10)
--- NOTE | 2023-08-14 12:18 | NUR ---
Care Conference: Last evening at 1900, I received a call from Dr. Childers in ER. The patient was brought to the ER by ambulance from her doctor's office. She had arrived at the doctor's office somnolent, and was given narcan. She then presented to the ER, flailing her extremities and yelling out. She was grimacing, and appeared to be in pain. Due to the narcan, it was difficult to manage her pain and/or possible withdrawal. Pt's grandson Andrés was at bedside, and daughter Jolene out in the lobby. Grandfede Bowen deferred to his mom Jolene. The patient does not have a POA on file, and so at this time will defer to daughter Jolene. There is another relative listed as a contact, but she is not answering the phone at this time. According to daughter Jolene, niece Dinorah is at work. The decision to place the patient on comfort was made by pt's daughter Jolene, who is the legal decision maker according to [place]'s medical decision making hierarchy. The patient has been unable to speak for herself, and does appear to be appropriate for comfort care given her history and comorbidities.
--- NOTE | 2023-08-14 13:04 | NUR ---
Case Conference: Spoke to pt's granddaughter Dinorah who is listed as a contact on pt's face sheet. Dinorah tells me she has been actively involved in pt's care in the past, but is currently working and living in [place] and doesn't drive, so has no way to come visit. I encouraged her to speak with her aunt Jolene to discuss the pt's care further. According to the most recent POLST filled out by this patient, she had marked "Full Code" in section A, and "comfort care" in section B. During this writing, Dr. Michael informed me the patient has woken up, and is asking for treatment. Given her ability to make her decision known, pt will be given fluids, and treated for current UTI and yeast, and whatever other measures are needed to correct her chemistry. Will notify both Jolene and Dinorah.
[2023-08-14 14:09] LABS: BASOPHILS ABSOLUTE AUTO 0.09 K/mm3 (0.00-0.23); BASOPHILS PERCENT AUTO 1 % (0-2); EOSINOPHILS ABSOLUTE AUTO 0.29 K/mm3 (0.00-0.68); EOSINOPHILS PERCENT AUTO 3 % (0-6); Hematocrit 31.7 % (33.0-51.0); Hemoglobin 9.3 g/dL (11.5-16.0); IMMATURE GRAN ABSOLUTE AUTO 0.09 K/mm3 (0.00-0.10); IMMATURE GRAN PERCENT AUTO 1 % (0-1); LYMPHOCYTES ABSOLUTE AUTO 1.51 K/mm3 (0.84-5.20); LYMPHOCYTES PERCENT AUTO 16 % (21-46); MONOCYTES PERCENT AUTO 11 % (4-13); Mean Corpuscular HGB 25.3 pg (26.0-34.0); Mean Corpuscular HGB Conc 29.3 g/dL (31.5-36.5); Mean Corpuscular Volume 86 fL (80-100); Mean Platelet Volume 9.3 fL (9.1-12.4); NEUTROPHILS ABSOLUTE AUTO 6.48 K/mm3 (1.96-9.15); NEUTROPHILS PERCENT AUTO 68 % (41-73); Platelet Count 374 K/mm3 (150-400); RDW Coefficient Variation 17.2 % (11.7-14.2); RDW Standard Deviation 54.9 fL (35.1-46.3); Red Blood Cell Count 3.67 M/mm3 (3.80-5.20); White Blood Cell Count 9.46 K/mm3 (4.00-11.30)
[2023-08-14 14:23] LABS: Albumin, Blood 2.6 g/dL (3.4-5.0); Albumin/Globulin Ratio 0.5 (0.8-1.8); Bilirubin, Total 0.3 mg/dL (0.1-1.0); Bun/Creatinine Ratio 30.3 (12.0-20.0); Calcium, Blood 10.1 mg/dL (8.5-10.1); Creatinine, Blood 2.08 mg/dL (0.40-1.00); Potassium, Blood 5.6 mmol/L (3.5-5.5); Total Protein, Blood 7.6 g/dL (6.4-8.2)
[2023-08-14] MEDS ORDERED: NS 250 ML IV PRN (14:40)
[2023-08-14 16:29] VITALS: BP 134/56
[2023-08-14] MEDS ORDERED: Acetaminophen 500 MG Tab PO PRN (17:25)
--- NOTE | 2023-08-14 17:47 | NUR ---
DAYSHIFT SUMMARY Patient alert, oriented x2-3. MD discussed plan of care with patient & family, changed status from comfort care to DNR-limited. Comfort meds DC'd. Started IV fluids & IV antifungal and ABX. Patient reporting severe pain in hits & buttocks. Oral care & repositioning provided. VSS. Will continue plan of care.
[2023-08-14 19:20] VITALS: BP 112/48
[2023-08-14 19:21] LABS: Bun/Creatinine Ratio 30.6 (12.0-20.0); Calcium, Blood 9.8 mg/dL (8.5-10.1); Creatinine, Blood 1.86 mg/dL (0.40-1.00); Potassium, Blood 4.7 mmol/L (3.5-5.5)
[2023-08-14] MEDS ORDERED: Melatonin 5 MG Tablet PO SCH (21:00)
[2023-08-14] MEDS ORDERED: OxyCODONE 7.5 mg/Acetam 325 mg TABLET PO SCH (21:00)
[2023-08-14] MEDS ORDERED: Ezetimibe 10 MG Tab PO SCH (21:00)
[2023-08-14] MEDS ORDERED: DULoxetine HCL 30 MG Cap DR PO SCH (21:00)
[2023-08-14] MEDS ORDERED: Baclofen 10 MG Tab PO SCH (21:00)
[2023-08-14] MEDS ORDERED: Pregabalin 50 MG Capsule PO SCH (21:00)
[2023-08-14] MEDS ORDERED: FentaNYL Citrate 50 MCG/ML 2 ML Injection IV ONE (22:05)
[2023-08-14] MEDS ORDERED: OxyCODONE 10/Acetamin 325 TABLET PO PRN (22:05)
[2023-08-15 02:33] VITALS: BP 107/52
[2023-08-15 05:48] LABS: BASOPHILS ABSOLUTE AUTO 0.07 K/mm3 (0.00-0.23); BASOPHILS PERCENT AUTO 1 % (0-2); EOSINOPHILS ABSOLUTE AUTO 0.52 K/mm3 (0.00-0.68); EOSINOPHILS PERCENT AUTO 5 % (0-6); Hematocrit 30.7 % (33.0-51.0); Hemoglobin 9.1 g/dL (11.5-16.0); IMMATURE GRAN PERCENT AUTO 1 % (0-1); LYMPHOCYTES ABSOLUTE AUTO 1.95 K/mm3 (0.84-5.20); LYMPHOCYTES PERCENT AUTO 17 % (21-46); MONOCYTES ABSOLUTE AUTO 1.23 K/mm3 (0.16-1.47); MONOCYTES PERCENT AUTO 11 % (4-13); Mean Corpuscular HGB 25.4 pg (26.0-34.0); Mean Corpuscular HGB Conc 29.6 g/dL (31.5-36.5); Mean Corpuscular Volume 86 fL (80-100); Mean Platelet Volume 9.3 fL (9.1-12.4); NEUTROPHILS ABSOLUTE AUTO 7.54 K/mm3 (1.96-9.15); NEUTROPHILS PERCENT AUTO 66 % (41-73); Platelet Count 336 K/mm3 (150-400); RDW Coefficient Variation 17.1 % (11.7-14.2); RDW Standard Deviation 53.4 fL (35.1-46.3); Red Blood Cell Count 3.58 M/mm3 (3.80-5.20); White Blood Cell Count 11.41 K/mm3 (4.00-11.30)
[2023-08-15 06:12] LABS: Albumin, Blood 2.3 g/dL (3.4-5.0); Anion Gap 3 mmol/L (6-16); Blood Urea Nitrogen 47 mg/dL (8-24); Bun/Creatinine Ratio 29.2 (12.0-20.0); CO2, Blood 27 mmol/L (21-32); Calcium, Blood 9.8 mg/dL (8.5-10.1); Chloride, Blood 113 mmol/L (98-108); Creatinine, Blood 1.61 mg/dL (0.40-1.00); Glomerular Filtration Rate 33 (60-); Glucose, Blood 101 mg/dL (70-99); Phosphorus, Blood 3.8 mg/dL (2.5-4.9); Potassium, Blood 4.9 mmol/L (3.5-5.5); Sodium, Blood 143 mmol/L (136-145)
--- NOTE | 2023-08-15 06:43 | NUR ---
SHIFT SUMMARY. FAMILY IN AT BEDSIDE BEGINNING OF SHIFT. CASE MANAGEMENT WOULD BE BENEFICIAL TO THIS PATIENT IT APPEARS TO BE COMPLICATED BETWEEN FAMILY AND WHO MAKES THE CHOICES FOR PATIENTS CARE. PATIENT IS PAINFUL WITH MOVEMENT AND REPOSITIONING-ORAL PAIN MEDS ADJUSTED PER MD-SEE ORDERS. PATIENT HAS A SOFT TOUCH CALL LIGHT. PATIENT IS BEDREST AT THIS TIME. PATIENT IS PLEASANT AND COOPERATIVE WITH CARE. TAKES MEDS WHOLE W/WATER.BED IS LOCKED IN THE LOWEST POSITION W/CALL LIGHT IN REACH.
[2023-08-15 07:44] VITALS: BP 111/52
[2023-08-15] MEDS ORDERED: Losartan Potassium 25 MG Tab PO SCH (09:00)
[2023-08-15] MEDS ORDERED: Tamsulosin HCl 0.4 MG Cap PO SCH (09:00)
[2023-08-15 16:52] VITALS: BP 109/49
--- NOTE | 2023-08-15 16:52 | NUR ---
DAYSHIFT SUMMARY Patient alert & oriented x4. Patient verbalizes chronic pain, asking for PRN Percocet for pain. Repositioned Q2H. IV ABX & anitfungal meds administred. MD discussed plan of care and patient's goal with the patient and family. Comfort care ordered. Vitals stable, will continue plan of care.
[2023-08-15 20:00] VITALS: BP 112/52
--- NOTE | 2023-08-15 21:17 | NUR ---
PATIENT EXPRESSED TO THIS RN THAT SHE WOULD PREFER HER GRANDAUGHLIMA TO BE THE ONE TO MAKE DECISIONS.
[2023-08-16 04:27] VITALS: BP 118/56
--- NOTE | 2023-08-16 05:06 | NUR ---
SHIFT SUMMARY. PATIENT ADMITTED FOR MADHAVI SUPERIMPOSED ON CKD. PATIENT HAS CHRONIC PAIN AND HAS REQUESTED FOR PAIN MEDS-MEDICATED PER EMAR. PATIENT IS PLEASANT AND COOPERATIVE WITH. PATIENT IS CURRENTLY ON COMFORT CARE. PATIENT HAS VIDAL DRAINING MILKY WHITE URINE TO GRAVITY. PATIENT IS USING A SOFT TOUCH CALL LIGHT. PATIENT LIVES AT [facility] [place]. BED IS LOCKED IN THE LOWEST POSITION WITH CALL LIGHT IN REACH.
--- NOTE | 2023-08-16 17:25 | NUR ---
Met with pt, her granddaughter Dinorah, Dr. Michael and CM. During this meeting, the patient reports she "doesn't know what" she wants to do, whether hospice or home health. Her mentation has cleared, and she is able to make her own decisions. The patient also admitted she has been telling her granddaughter Dinorah she wants to "fight to live", while telling her daughter Jolene she wants to go home on hospice. She also stated she just doesn't want to "disappoint" anyone in her family. We request the pt's daughter and granddaughter get together with the patient soon, as pt is still on for possible discharge with [facility] tomorrow. The family dynamics make the situation difficult. Plan to see pt again in the morning.
--- NOTE | 2023-08-16 19:22 | NUR ---
SHIFT SUMMARY: PT REMAINS ON COMFORT CARE AND POTENTIALLY BEING DISCHARGE HOME ON HOSPICE TOMORROW 08/17/23 WITH [facility] TO [place]. DECISIONS WHETHER TO BE ON COMFORT CARE/HOSPICE OR RECEIVE TREATMENT INPATIENT IS IN QUESTION DUE TO THE PATIENT'S INABILITY TO MAKE A DECISION WHILE BEING INFULENCED BY FAMILY. SEVERAL CONVERSATIONS HAVE BEEN HAD WITH THE PATIENT AND THE FAMILY WITH MEDICAL STAFF: BENITEZ MIGUEL, AND NURSE PEN RIDER. PLEASE SEE THEIR NOTES FOR FURTHER DETAILS. SHE IS ALERT AND ORIENTED X4 AND IS ABLE TO ANSWER QUESTIONS APPROPRIATELY. SHE IN IN BED, CALL LIGHT WITHIN REACH, BED IN LOWEST POSITION, NO SIGNS OR SYMPTOMS OF DISTRESS. PLAN OF CARE ONGOING.
[2023-08-17 05:06] LABS: BASOPHILS ABSOLUTE AUTO 0.09 K/mm3 (0.00-0.23); BASOPHILS PERCENT AUTO 1 % (0-2); EOSINOPHILS ABSOLUTE AUTO 0.69 K/mm3 (0.00-0.68); EOSINOPHILS PERCENT AUTO 6 % (0-6); Hematocrit 29.4 % (33.0-51.0); Hemoglobin 8.8 g/dL (11.5-16.0); IMMATURE GRAN ABSOLUTE AUTO 0.23 K/mm3 (0.00-0.10); IMMATURE GRAN PERCENT AUTO 2 % (0-1); LYMPHOCYTES PERCENT AUTO 24 % (21-46); MONOCYTES ABSOLUTE AUTO 1.21 K/mm3 (0.16-1.47); MONOCYTES PERCENT AUTO 11 % (4-13); Mean Corpuscular HGB 25.9 pg (26.0-34.0); Mean Corpuscular HGB Conc 29.9 g/dL (31.5-36.5); Mean Corpuscular Volume 87 fL (80-100); Mean Platelet Volume 9.5 fL (9.1-12.4); NEUTROPHILS ABSOLUTE AUTO 6.23 K/mm3 (1.96-9.15); NEUTROPHILS PERCENT AUTO 56 % (41-73); Platelet Count 319 K/mm3 (150-400); RDW Coefficient Variation 16.4 % (11.7-14.2); RDW Standard Deviation 51.7 fL (35.1-46.3); White Blood Cell Count 11.05 K/mm3 (4.00-11.30)
[2023-08-17 06:10] LABS: Alanine Aminotransfer (ALT/SGP 15 U/L (12-78); Albumin, Blood 2.3 g/dL (3.4-5.0); Albumin/Globulin Ratio 0.5 (0.8-1.8); Alk Phos 77 U/L (50-136); Anion Gap 4 mmol/L (6-16); Aspartate Aminotrans (AST/SGOT 11 U/L (12-37); Bilirubin, Total <0.1 mg/dL (0.1-1.0); Blood Urea Nitrogen 36 mg/dL (8-24); Bun/Creatinine Ratio 22.5 (12.0-20.0); CO2, Blood 28 mmol/L (21-32); Calcium, Blood 9.6 mg/dL (8.5-10.1); Chloride, Blood 107 mmol/L (98-108); Globulin, Blood 4.4 g/dL (2.2-4.0); Glomerular Filtration Rate 33 (60-); Glucose, Blood 169 mg/dL (70-99); Potassium, Blood 4.1 mmol/L (3.5-5.5); Sodium, Blood 139 mmol/L (136-145); Total Protein, Blood 6.7 g/dL (6.4-8.2)
--- NOTE | 2023-08-17 06:43 | NUR ---
SHIFT SUMMARY. PATIENT IS A 73 YEAR OLD FEMALE IN WITH MADHAVI SUPERIMPOSED ON CKD. PATIENT IS BEDREST, ON COMFORT CARE. PATIENT IS AOX2-3. PATIENT HAS A SOFT TOUCH CALL LIGHT, CALLS APPROPRIATELY AND IS ABLE TO MAKE HER NEEDS KNOWN. PATIENT LIVES AT [facility] IN [place]. PLAN IS TO POSSIBLY DISCHARGE TODAY BACK TO [facility] ON HOSPICE. PATIENT REPOSITIONED. PATIENT HAS A VIDAL DRAINING TO GRAVITY. PATIENT IS A 2 PERSON ASSIST AND PAINFUL WITH MOVEMENT/REPOSITIONING. PATIENT TAKES PILLS WHOLE WITH WATER. PATIENT HAS SLEPT OFF AND ON T/O SHIFT WITH RESPIRATIONS EQUAL AND UNLABORED. PATIENT IS ON 2 L'S VIA NASAL CANNULA. BED IS LOCKED IN THE LOWEST POSITION WITH CALL LIGHT IN REACH NO S/S OF DISTRESS NOTED AT THIS TIME.
[2023-08-17] MEDS ORDERED: Magnesium Hydroxide Conc 10 ML UDC PO PRN (10:30)
[2023-08-17] MEDS ORDERED: Bisacodyl 10 MG Supp PR PRN (10:30)
[2023-08-17] MEDS ORDERED: DOCU100 PO (13:47)
[2023-08-17] MEDS ORDERED: BISA10S PR (13:47)
[2023-08-17] MEDS ORDERED: SENN187 PO (13:48)
[2023-08-17] MEDS ORDERED: DULCOLAX400 MG/5 M PO (13:48)
--- NOTE | 2023-08-17 17:18 | NUR ---
PT DISCHARGED FROM THE UNIT. IV REMOVED. PT WILL TRANSFER TO [place] WHERE SHE LIVES. VIDAL LEFT IN PER DRS ORDERS. PT LEFT VIA GURNEY WITH TRANSPORT.
[2023-08-17] MEDS ORDERED: Docusate Sodium 100 MG Cap PO SCH (21:00)
[2023-08-17] MEDS ORDERED: Sennosides 8.6 MG Tab PO SCH (21:00)
== END 2023-08-17 17:22 | disposition home health service (06) ==
LOC: ER 16:27 → ERHOLD 16:28 → MEDS 16:28
PROVIDERS: Emergency Medicine; Family Medicine; Student in an Organized Health Care Education/Training Program; ADMIT Internal Medicine
DX: G93.41 Metabolic encephalopathy (principal); N17.9 Acute kidney failure, unspecified; N18.30 Chronic kidney disease, stage 3 unspecified; N39.0 Urinary tract infection, site not specified; I12.9 Hypertensive chronic kidney disease with stage 1 through stage 4 chronic kidney disease, or unspecified chronic kidney disease; F32.A Depression, unspecified; E78.5 Hyperlipidemia, unspecified; G89.29 Other chronic pain; M54.9 Dorsalgia, unspecified; N20.0 Calculus of kidney; Z51.5 Encounter for palliative care; E87.5 Hyperkalemia; D63.1 Anemia in chronic kidney disease; Z88.0 Allergy status to penicillin; Z88.1 Allergy status to other antibiotic agents; E11.22 Type 2 diabetes mellitus with diabetic chronic kidney disease
CPT/HCPCS: 36415; 51702; 80048; 80053; 80069; 81001; 83605; 85025; 87040; 87086; 96374-59; 96375; 96375-59; 96376; 99285-25; A9270; G0378; J1170; J1790; J2060; J2185; J2248; J3010; J7050; J7120

== ENCOUNTER 2023-12-13 10:35 | Emergency (ER) | payer OTHER ==
[~2023-12-13] VITALS: Ht 152.4 cm; Wt 83.5 kg
[~2023-12-13 10:35] MED LIST changes: +ACET500 PO; +BUSP5 PO; +DOCU100 PO; +DULCOLAX400 MG/5 M PO; +EZETIMIBE10 M6 PO; +Estrace Vagin42.5 GM; +FURO20 PO; +GABA100 PO; +LOSARTAN POTASS25 M2 PO; +MELATONIN1010 PO; +NITROFURANTOIN5012 PO; +OXYCODONE-ACET1 EA13 PO; +POTA8 PO; +Percocet 10-321 EACH PO; +SENN187 PO
[2023-12-13] MEDS ORDERED: Ketorolac Tromethamine 30mg Vial IV ONE (11:05)
[2023-12-13] MEDS ORDERED: Methocarbamol 500 MG Tab PO ONE (11:10)
[2023-12-13] MEDS ORDERED: Calcium Gluconate 10% 1,000 MG in NS 50 ML IV ONE (11:15)
[2023-12-13 11:28] LABS: BASOPHILS ABSOLUTE AUTO 0.07 K/mm3 (0.00-0.23); BASOPHILS PERCENT AUTO 1 % (0-2); EOSINOPHILS ABSOLUTE AUTO 0.25 K/mm3 (0.00-0.68); EOSINOPHILS PERCENT AUTO 2 % (0-6); Hematocrit 33.1 % (33.0-51.0); IMMATURE GRAN ABSOLUTE AUTO 0.05 K/mm3 (0.00-0.10); IMMATURE GRAN PERCENT AUTO 0 % (0-1); LYMPHOCYTES ABSOLUTE AUTO 1.42 K/mm3 (0.84-5.20); LYMPHOCYTES PERCENT AUTO 12 % (21-46); MONOCYTES ABSOLUTE AUTO 0.84 K/mm3 (0.16-1.47); MONOCYTES PERCENT AUTO 7 % (4-13); Mean Corpuscular HGB 26.9 pg (26.0-34.0); Mean Corpuscular HGB Conc 30.2 g/dL (31.5-36.5); Mean Corpuscular Volume 89 fL (80-100); Mean Platelet Volume 9.5 fL (9.1-12.4); NEUTROPHILS ABSOLUTE AUTO 8.82 K/mm3 (1.96-9.15); NEUTROPHILS PERCENT AUTO 77 % (41-73); Platelet Count 230 K/mm3 (150-400); RDW Standard Deviation 48.9 fL (35.1-46.3); Red Blood Cell Count 3.72 M/mm3 (3.80-5.20); White Blood Cell Count 11.45 K/mm3 (4.00-11.30)
[2023-12-13] MEDS ORDERED: CALCIUM GLUC IN NACL, ISO-OSM 50 ML IV ONE (11:30)
[2023-12-13 11:45] LABS: Albumin, Blood 3.7 g/dL (3.4-5.0); Bilirubin, Total 0.2 mg/dL (0.1-1.0); Bun/Creatinine Ratio 29.9 (12.0-20.0); C-REACTIVE PROTEIN, EXT RANGE 1.85 mg/dL (0.000-0.300); Calcium, Blood 9.6 mg/dL (8.5-10.1); Creatinine, Blood 1.44 mg/dL (0.40-1.00); Globulin, Blood 3.6 g/dL (2.2-4.0); Magnesium, Blood 2.5 mg/dL (1.6-2.4); Potassium, Blood 4.9 mmol/L (3.5-5.5); Total Protein, Blood 7.3 g/dL (6.4-8.2)
[2023-12-13] MEDS ORDERED: Clindamycin HCl 150 MG Cap PO ONE (13:40)
[2023-12-13] MEDS ORDERED: Cleocin HCl150 MG PO (13:48)
[2023-12-13 15:30] VITALS: BP 120/61
== END 2023-12-13 15:53 | disposition home or self-care (01) ==
LOC: ER 10:35
PROVIDERS: Student in an Organized Health Care Education/Training Program
DX: L03.115 Cellulitis of right lower limb (principal); R25.2 Cramp and spasm; G89.29 Other chronic pain; Z88.8 Allergy status to other drugs, medicaments and biological substances; Z88.0 Allergy status to penicillin; Z91.048 Other nonmedicinal substance allergy status; Z88.1 Allergy status to other antibiotic agents; Z88.7 Allergy status to serum and vaccine; Z79.899 Other long term (current) drug therapy; Z85.3 Personal history of malignant neoplasm of breast; E11.9 Type 2 diabetes mellitus without complications; I10 Essential (primary) hypertension; E78.5 Hyperlipidemia, unspecified; Z87.891 Personal history of nicotine dependence
CPT/HCPCS: 71045; 80053; 83735; 83880; 85025; 85651; 86140; 93971; 96374; 96375; 99284-25; A9270; J0612; J1885

== ENCOUNTER → 2024-02-02 | Outpatient (CLI) | payer OTHER ==
[~2024-02-02] MED LIST changes: +Cleocin HCl150 MG PO
[2024-02-02 20:10] LABS: Percent Saturation 6.8 % (15.0-50.0)
[2024-02-04 19:27] LABS: HIV 1,2 COMBO ANTIGEN/ANTIBODY Negative (Negative)
== END ==
LOC: LAB SHORT 18:43 → LAB 18:43
PROVIDERS: Family Medicine
DX: D64.9 Anemia, unspecified (principal); Z11.4 Encounter for screening for human immunodeficiency virus [HIV]
CPT/HCPCS: 82728; 83540; 83550; 87389

== ENCOUNTER → 2024-02-18 | Outpatient (CLI) | payer OTHER | END | disposition home or self-care (01) | LOC: LAB 17:15 → LAB SHORT 17:15 | DX: R30.0 Dysuria (principal) | CPT/HCPCS: 87077; 87086; 87186 ==

== ENCOUNTER → 2024-04-12 | Outpatient (CLI) | payer OTHER ==
[2024-04-18 16:18] LABS: CALCIUM, URINE - PER 24H 96 mg/d (100-250); CHLORIDE, URINE - PER 24H 141 mmol/d (140-250); CHLORIDE, URINE - PER VOLUME 88 mmol/L; CITRIC ACID, URINE - PER 24H 42 mg/d (320-1240); CITRIC ACID,URINE - PER VOLUME 26 mg/L; CREATININE, URINE - PER 24H 992 mg/d (500-1400); CREATININE, URINE - PER VOLUME 62 mg/dL; HOURS COLLECTED 24 hr; MAGNESIUM, URINE - PER VOLUME 8.5 mg/dL; MAGNESIUM, URINE PER 24H 136 mg/d (12-199); OXALATE, URINE - PER 24H 32 mg/d (13-40); OXALATE, URINE - PER VOLUME 20 mg/L; PH, URINE 5.38 (5.00-7.50); PHOSPHORUS, URINE - PER 24H 1056 mg/d (400-1300); PHOSPHORUS, URINE - PER VOLUME 66 mg/dL; POTASSIUM, URINE - PER 24H 53 mmol/d (25-125); POTASSIUM, URINE - PER VOLUME 33 mmol/L; SODIUM, URINE - PER 24H 158 mmol/d (51-286); SODIUM, URINE - PER VOLUME 99 mmol/L; SULFATE, URINE - PER 24H 11 mmol/d (6-30); SULFATE, URINE - PER VOLUME 7 mmol/L; TOTAL VOLUME 1600 mL; URIC ACID, URINE - PER 24H 520 mg/d (250-750); URIC ACID, URINE - PER VOLUME 32.5 mg/dL; URINE SUPERSATURATION INTERP Abnormal; URINE SUPERSATURATION, CAHPO4 0.42; URINE SUPERSATURATION, CAOX 3.56; URINE SUPERSATURATION, UA CALC 1.39
== END ==
LOC: LAB SHORT 15:39 → LAB 15:39
PROVIDERS: Urology
DX: R82.991 Hypocitraturia (principal)
CPT/HCPCS: 81003; 82131; 82140; 82340; 82436; 82507; 82570; 83735; 83935; 83945; 84105; 84133; 84300; 84392; 84560

== ENCOUNTER → 2024-05-03 | Outpatient (CLI) | payer OTHER ==
[2024-05-03 15:09] LABS: Source, Urine Clean Catch
[2024-05-03 15:38] LABS: Appearance, Urine Hazy (Clear); Bilirubin, Urine Neg (Neg); Blood, Urine Neg (Neg); Color, Urine Yellow (P-Yellow); Glucose Qualitative, Urine Neg (Neg); Ketones, Urine Neg (Neg); Leukocyte Esterase, Urine 2+ (Neg); Nitrite, Urine Neg (Neg); Protein, Urine 1+ (Neg); Urobilinogen, Urine NORM (Normal)
[2024-05-03 16:03] LABS: Bacteria Mod /hpf; Red Blood Cells, Urine 0-2 /hpf (0-2); Squamous Epithelial Cells Few /hpf (Few); White Blood Cells, Urine TNTC /hpf (0-5)
== END | disposition home or self-care (01) ==
LOC: LAB SHORT 15:06 → LAB 15:06
PROVIDERS: Family Medicine
DX: N39.0 Urinary tract infection, site not specified (principal)
CPT/HCPCS: 81001; 87077; 87086; 87186

== ENCOUNTER 2024-05-12 12:43 | Emergency (ER) | payer OTHER ==
[~2024-05-12] VITALS: Ht 152.4 cm; Wt 81.7 kg
[2024-05-12] MEDS ORDERED: Fosfomycin Tromethamine 3 GM Packet PO ONE (13:55)
[2024-05-12] MEDS ORDERED: FOSFOMYCIN TROME3 G1 PO (14:02)
[2024-05-12 14:30] VITALS: BP 122/55
== END 2024-05-12 14:32 | disposition home or self-care (01) ==
LOC: ER 12:43
DX: N30.00 Acute cystitis without hematuria (principal); E11.9 Type 2 diabetes mellitus without complications; I10 Essential (primary) hypertension; E78.5 Hyperlipidemia, unspecified; Z16.35 Resistance to multiple antimicrobial drugs; Z87.891 Personal history of nicotine dependence; Z79.899 Other long term (current) drug therapy; Z88.1 Allergy status to other antibiotic agents; Z88.0 Allergy status to penicillin; Z91.048 Other nonmedicinal substance allergy status; Z88.7 Allergy status to serum and vaccine; Z88.8 Allergy status to other drugs, medicaments and biological substances
CPT/HCPCS: 99283; A9270

== ENCOUNTER → 2024-05-18 | Outpatient (CLI) | payer OTHER ==
[~2024-05-18] MED LIST changes: +FOSFOMYCIN TROME3 G1 PO
[2024-05-18 12:01] LABS: Source, Urine Clean Catch
[2024-05-18 13:21] LABS: Appearance, Urine Hazy (Clear); Bilirubin, Urine Neg (Neg); Blood, Urine 1+ (Neg); Color, Urine Yellow (P-Yellow); Glucose Qualitative, Urine Neg (Neg); Ketones, Urine Neg (Neg); Leukocyte Esterase, Urine 3+ (Neg); Nitrite, Urine Neg (Neg); Protein, Urine 1+ (Neg); Specific Gravity, Urine 1.015 (1.003-1.022); Urobilinogen, Urine NORM (Normal)
[2024-05-18 13:50] LABS: Bacteria Mod /hpf; Squamous Epithelial Cells Few /hpf (Few); White Blood Cells, Urine 50-100 /hpf (0-5)
[2024-05-18 13:51] LABS: Transitional Epithelial Cells Rare /hpf (0-Rare)
== END ==
LOC: LAB SHORT 11:59 → LAB 11:59
PROVIDERS: Nurse Practitioner Family
DX: N39.0 Urinary tract infection, site not specified (principal)
CPT/HCPCS: 81001; 87077; 87086; 87186

== ENCOUNTER → 2024-06-27 | Outpatient (CLI) | payer OTHER ==
[2024-06-27 15:57] LABS: Source, Urine Clean Catch
[2024-06-27 17:09] LABS: Appearance, Urine Clear (Clear); Bilirubin, Urine Neg (Neg); Blood, Urine Neg (Neg); Color, Urine Yellow (P-Yellow); Glucose Qualitative, Urine Neg (Neg); Ketones, Urine Neg (Neg); Leukocyte Esterase, Urine 1+ (Neg); Nitrite, Urine Neg (Neg); Protein, Urine Neg (Neg); Urobilinogen, Urine NORM (Normal)
[2024-06-27 17:16] LABS: Bacteria Mod /hpf; Red Blood Cells, Urine 0-2 /hpf (0-2); Squamous Epithelial Cells Rare /hpf (Few); Transitional Epithelial Cells Rare /hpf (0-Rare)
== END | disposition home or self-care (01) ==
LOC: LAB SHORT 15:53 → LAB 15:53
PROVIDERS: Family Medicine
DX: N39.0 Urinary tract infection, site not specified (principal)
CPT/HCPCS: 81001; 87077; 87086; 87186

== ENCOUNTER 2024-07-26 10:29 | Inpatient (IN) | payer OTHER ==
[~2024-07-26] VITALS: Ht 152.4 cm; Wt 86.5 kg
[~2024-07-26 10:29] MED LIST changes: -DULO30 PO; -FURO20 PO; +FURO40 PO; -POTA8 PO; +POTASSIUM CITR15 ME1 PO
[2024-07-26] MEDS ORDERED: NS 1,000 ML IV SCH ×2 (10:55→13:45)
[2024-07-26] MEDS ORDERED: Acetaminophen 500 MG Tab PO ONE (11:00)
[2024-07-26 11:13] LABS: BASOPHILS ABSOLUTE AUTO 0.02 K/mm3 (0.00-0.23); BASOPHILS PERCENT AUTO 0 % (0-2); EOSINOPHILS PERCENT AUTO 2 % (0-6); Hematocrit 30.8 % (33.0-51.0); Hemoglobin 9.8 g/dL (11.5-16.0); IMMATURE GRAN ABSOLUTE AUTO 0.04 K/mm3 (0.00-0.10); IMMATURE GRAN PERCENT AUTO 1 % (0-1); LYMPHOCYTES ABSOLUTE AUTO 0.64 K/mm3 (0.84-5.20); LYMPHOCYTES PERCENT AUTO 10 % (21-46); MONOCYTES PERCENT AUTO 13 % (4-13); Mean Corpuscular HGB Conc 31.8 g/dL (31.5-36.5); Mean Corpuscular Volume 98 fL (80-100); Mean Platelet Volume 9.9 fL (9.1-12.4); NEUTROPHILS ABSOLUTE AUTO 4.69 K/mm3 (1.96-9.15); NEUTROPHILS PERCENT AUTO 75 % (41-73); Platelet Count 144 K/mm3 (150-400); RDW Coefficient Variation 16.2 % (11.7-14.2); RDW Standard Deviation 58.3 fL (35.1-46.3); Red Blood Cell Count 3.16 M/mm3 (3.80-5.20); White Blood Cell Count 6.29 K/mm3 (4.00-11.30)
[2024-07-26 11:41] LABS: Source, Urine Clean Catch
[2024-07-26 11:46] LABS: Appearance, Urine Cloudy (Clear); Bilirubin, Urine Neg (Neg); Blood, Urine 3+ (Neg); Color, Urine Yellow (P-Yellow); Glucose Qualitative, Urine Neg (Neg); Ketones, Urine Neg (Neg); Leukocyte Esterase, Urine 3+ (Neg); Nitrite, Urine Pos (Neg); Protein, Urine 3+ (Neg); Specific Gravity, Urine 1.015 (1.003-1.022); Urobilinogen, Urine NORM (Normal)
[2024-07-26 11:58] LABS: Bacteria Mod /hpf; Red Blood Cells, Urine TNTC /hpf (0-2); Squamous Epithelial Cells Not Seen /hpf (Few); White Blood Cells, Urine TNTC /hpf (0-5)
[2024-07-26 12:26] LABS: Albumin, Blood 3.4 g/dL (3.4-5.0); Albumin/Globulin Ratio 0.9 (0.8-1.8); Bilirubin, Total 0.5 mg/dL (0.1-1.0); Bun/Creatinine Ratio 22.7 (12.0-20.0); Calcium, Blood 9.4 mg/dL (8.5-10.1); Creatinine, Blood 1.41 mg/dL (0.40-1.00); Globulin, Blood 3.6 g/dL (2.2-4.0); Potassium, Blood 4.9 mmol/L (3.5-5.5)
[2024-07-26] MEDS ORDERED: Azithromycin 500 MG in NS 250 ML IV ONE (12:50)
[2024-07-26] MEDS ORDERED: Piperacillin/Tazobactam Sod 4.5 GM in NS 100 ML IV ONE (13:00)
[2024-07-26] MEDS ORDERED: Albuterol 2.5 MG/3 ML VIAL INH PRN (16:00)
[2024-07-26] MEDS ORDERED: FLU VACC TS2024-25(6MOS UP)/PF 45 MCG/0.5 ML SYRINGE IM SCH (16:05)
[2024-07-26] MEDS ORDERED: Acetaminophen 325 MG TABLET PO PRN (16:05)
[2024-07-26] MEDS ORDERED: Insulin Human Lispro 100 Units/ML 3ML Syringe SC SCH (16:30)
[2024-07-26] MEDS ORDERED: Bisacodyl 10 MG Supp PR PRN (17:10)
[2024-07-26] MEDS ORDERED: Magnesium Hydroxide Conc 10 ML UDC PO PRN (17:10)
[2024-07-26 17:45] LABS: Adenovirus Not Detected (NOT DETECT); Bordetella pertussis Not Detected (NOT DETECT); Chlamydophila pneumoniae Not Detected (NOT DETECT); Coronavirus 229E Not Detected (NOT DETECT); Coronavirus HKU1 Not Detected (NOT DETECT); Coronavirus NL63 Not Detected (NOT DETECT); Coronavirus OC43 Not Detected (NOT DETECT); Human Metapneumovirus Not Detected (NOT DETECT); Human Rhinovirus/Enterovirus Detected (NOT DETECT); Influenza A/2009-H1 Not Detected (NOT DETECT); Influenza A/H1 Detected (NOT DETECT); Influenza A/H3 Detected (NOT DETECT); Influenza B Not Detected (NOT DETECT); Mycoplasma pneumoniae Not Detected (NOT DETECT); Parainfluenza Virus 1 Not Detected (NOT DETECT); Parainfluenza Virus 2 Not Detected (NOT DETECT); Parainfluenza Virus 3 Not Detected (NOT DETECT); Parainfluenza Virus 4 Not Detected (NOT DETECT); Respiratory Syncytial Virus Not Detected (NOT DETECT); SARS-Cov-2 (COVID-19), BioFire Not Detected (NOT DETECT)
[2024-07-26] MEDS ORDERED: Piperacillin/Tazobactam Sod 3.375 GM in NS 100 ML IV SCH (18:00)
[2024-07-26 20:56] VITALS: BP 98/48
[2024-07-26] MEDS ORDERED: OxyCODONE 10/Acetamin 325 TABLET PO SCH (21:00)
[2024-07-26] MEDS ORDERED: TraZODone HCl 50 MG Tab PO SCH (21:00)
[2024-07-26] MEDS ORDERED: Melatonin 5 MG Tablet PO SCH (21:00)
[2024-07-26] MEDS ORDERED: DULoxetine HCL 30 MG Cap DR PO SCH (21:00)
[2024-07-26] MEDS ORDERED: Cranberry Extract 250MG W/30 MG Vitamin C Tab PO SCH (21:00)
[2024-07-26] MEDS ORDERED: Ezetimibe 10 MG Tab PO SCH (21:00)
[2024-07-26] MEDS ORDERED: Docusate Sodium 100 MG Cap PO SCH (21:00)
[2024-07-26] MEDS ORDERED: Lactobacil 2-S.Thermo-Bifido 1 1 Cap PO SCH (21:00)
[2024-07-26] MEDS ORDERED: GuaiFENesin 600 MG TabCR PO SCH (21:00)
[2024-07-26] MEDS ORDERED: Gabapentin 100 MG Cap PO SCH (21:00)
[2024-07-26] MEDS ORDERED: Pregabalin 50 MG Capsule PO SCH (21:00)
[2024-07-26] MEDS ORDERED: Sennosides 8.6 MG Tab PO SCH (21:00)
[2024-07-26] MEDS ORDERED: Baclofen 10 MG Tab PO SCH (21:00)
[2024-07-26] MEDS ORDERED: Ondansetron HCl 2 MG / ML 2ML Vial IV PRN (21:40)
[2024-07-27] MEDS ORDERED: NS 250 ML IV PRN (00:05)
[2024-07-27 05:12] VITALS: BP 118/49
[2024-07-27 05:28] LABS: Hematocrit 31.9 % (33.0-51.0); Hemoglobin 9.7 g/dL (11.5-16.0); Mean Corpuscular HGB 30.1 pg (26.0-34.0); Mean Corpuscular HGB Conc 30.4 g/dL (31.5-36.5); Mean Corpuscular Volume 99 fL (80-100); Platelet Count 134 K/mm3 (150-400); RDW Coefficient Variation 16.1 % (11.7-14.2); RDW Standard Deviation 58.9 fL (35.1-46.3); Red Blood Cell Count 3.22 M/mm3 (3.80-5.20); White Blood Cell Count 5.51 K/mm3 (4.00-11.30)
[2024-07-27 06:04] LABS: Albumin, Blood 3.1 g/dL (3.4-5.0); Albumin/Globulin Ratio 0.9 (0.8-1.8); Bilirubin, Total 0.3 mg/dL (0.1-1.0); Bun/Creatinine Ratio 17.6 (12.0-20.0); Calcium, Blood 9.2 mg/dL (8.5-10.1); Creatinine, Blood 1.36 mg/dL (0.40-1.00); Globulin, Blood 3.5 g/dL (2.2-4.0); Potassium, Blood 4.8 mmol/L (3.5-5.5); Total Protein, Blood 6.6 g/dL (6.4-8.2)
--- NOTE | 2024-07-27 06:15 | NUR ---
Shift Summary Pt admitted to this unit for Sepsis r/t UTI. She also tested positive for influenza A and rhinovirus, isolation precautions in place. She is AOx4 and indepenently uses BSC. She had one large soft BM this shift. She c/o of chronic back pain and has scheduled pain meds for it. She has a listed allergy for penicillin, although in the chart it states an manager investment banking specialist cleared her for penicillin and pt was able to verify this fact. She rcvd IV Zosyn twice without any negative reaction. She states she has had poor PO intake since last Thursday d/t nausea. I gave her one dose of Zofran and she was able to tolerate an Ensure.
[2024-07-27 08:33] VITALS: BP 122/68
[2024-07-27] MEDS ORDERED: Enoxaparin 40 MG/0.4 ML SYR SC SCH (09:00)
[2024-07-27] MEDS ORDERED: OxyCODONE 5 mg/Acetamin 325 mg TABLET PO SCH (09:00)
[2024-07-27] MEDS ORDERED: Losartan Potassium 25 MG Tab PO SCH (09:00)
[2024-07-27] MEDS ORDERED: Oseltamivir Phosphate 75 MG Cap PO SCH (09:00)
[2024-07-27 16:26] VITALS: BP 90/63
--- NOTE | 2024-07-27 18:06 | NUR ---
SHIFT SUMMARY PT AOX4, IND TO THE BSC. MEDICATED FOR PAIN PER THE EMAR. SHE CALLS AND MAKES HER NEEDS KNOWN. PT STATES FEELING BETTER THIS EVENING. APPETITE REMAINS LOW, SHE SAYS SHE IS NOT HUNGRY AT THIS TIME BUT STILL ENCOURAGING HER TO EAT. PT REPOSITIONS SELF IN BED. SHE REMAINS ON PRECAUTIONS. CALL LIGHT WITHIN REACH, BED LOCKED AND IN THE LOWEST POSITION. WILL REPORT TO ONCOMING NURSE.
[2024-07-27 19:59] VITALS: BP 104/58
[2024-07-27] MEDS ORDERED: Oseltamvir Phosphate 30 MG Cap PO SCH (21:00)
[2024-07-28 04:03] VITALS: BP 96/60
--- NOTE | 2024-07-28 05:51 | NUR ---
SHIFT SUMMARY PT A&O X4. C/O CHRONIC BACK PAIN- MEDICATED PER EMAR. OOB TO BSC INDEPENDENTLY. LOOSE STOOL X1. IV ANTIBIOTICS CONTINUE. ISOLATION FOR FLU/ RHINOVIRUS. SLEPT LONG INTERVALS THROUGH THE NIGHT. BED IN LOWEST POSITION, CALL LIGHT WITHIN REACH. SIDE RAILS UP X2.
[2024-07-28 05:54] LABS: Mean Platelet Volume 9.8 fL (9.1-12.4); Platelet Count 119 K/mm3 (150-400)
[2024-07-28 06:10] LABS: Bun/Creatinine Ratio 13.1 (12.0-20.0); Calcium, Blood 9.5 mg/dL (8.5-10.1); Creatinine, Blood 1.53 mg/dL (0.40-1.00); Potassium, Blood 4.5 mmol/L (3.5-5.5)
[2024-07-28 08:14] VITALS: BP 109/66
[2024-07-28] MEDS ORDERED: Banana Flakes/Tos 1 EA Powder Pack PO ONE (10:35)
[2024-07-28] MEDS ORDERED: Polyethylene Glycol 3350 17 gm PO PRN (10:35)
[2024-07-28] MEDS ORDERED: Ipratropium/Albuterol SulF 2.5-0.5MG/3 ML Amp INH SCH (10:35)
[2024-07-28] MEDS ORDERED: ESTRADIOL42.5 GM (17:51)
--- NOTE | 2024-07-28 18:01 | NUR ---
SHIFT SUMMARY PT AOX4, SBA TO THE CHAIR/BR. RA THIS SHIFT AND PT TOLERATING IT WELL. MEDICATED FOR PAIN PER THE EMAR. PT STATES FEELING BETTER TODAY. NO OTHER COMPLAINTS PER THE PT. CALL LIGHT WITHIN REACH, BEDLOCKED AND IN THE LOWEST POSITION. WILL REPORT TO ONCOMING NURSE.
[2024-07-28 20:13] VITALS: BP 132/69
[2024-07-29 02:17] VITALS: BP 121/86
[2024-07-29] MEDS ORDERED: Pantoprazole Sodium 20 MG Tab PO SCH (06:00)
[2024-07-29 06:04] LABS: Hematocrit 29.3 % (33.0-51.0); Hemoglobin 9.1 g/dL (11.5-16.0); Mean Corpuscular HGB Conc 31.1 g/dL (31.5-36.5); Mean Corpuscular Volume 97 fL (80-100); Mean Platelet Volume 10.2 fL (9.1-12.4); Platelet Count 128 K/mm3 (150-400); RDW Coefficient Variation 16.1 % (11.7-14.2); RDW Standard Deviation 57.8 fL (35.1-46.3); Red Blood Cell Count 3.03 M/mm3 (3.80-5.20); White Blood Cell Count 6.83 K/mm3 (4.00-11.30)
--- NOTE | 2024-07-29 06:20 | NUR ---
SHIFT SUMMARY PT A&O X4. C/O CHRONIC BACK PAIN- MEDICATED PER EMAR. PT AMBULATING TO BATHROOM WITH WALKER. PT TOLERATING ROOM AIR WITH O2 SATS >90%. PT DOES STATE SHE IS EXHAUSTED AFTER WALKING TO THE BATHROOM AND BACK. PT VERBALIZING FRUSTRATION WITH OCCUPATIONAL THERAPY YESTERDAY AND WITH THE RESPIRATORY TREATMENTS- PT WAS TEARY. ALLOWED TIME FOR PT TO EXPRESS FEELINGS AND PROVIDED EMOTIONAL SUPPORT. PT SLEPT FOR LONG INTERVALS THROUGH THE NIGHT. BED IN LOWEST POSITION, CALL LIGHT WITHIN REACH, SIDE RAILS UP X2.
[2024-07-29 06:42] LABS: Bun/Creatinine Ratio 12.2 (12.0-20.0); Calcium, Blood 9.4 mg/dL (8.5-10.1); Creatinine, Blood 1.48 mg/dL (0.40-1.00)
[2024-07-29 07:50] VITALS: BP 117/55
[2024-07-29] MEDS ORDERED: GUAI600T33 PO (13:36)
[2024-07-29] MEDS ORDERED: Tamiflu30 MG PO (13:36)
--- NOTE | 2024-07-29 14:38 | NUR ---
DISCHARGE SUMMARY: PT AOX3 WAS ABLE TO STAND PIVOT INTO WHEELCHAIR. PT IN HAPPY MOOD TO BE DISCHARGED. REPORT CALLED AND GIVEN TO BRIAN AT [facility]. PRESCRIPTIONS FAXED TO PHARMACY AND DISCHARGE EDUCATION AND PLAN GONE OVER WITH PT AND NURSE AT FACILITY. ALL PT BLONGINGS LEFT WITH PATIENT.
[2024-07-29] MEDS ORDERED: FERSU300 PO (18:09)
[2024-07-29] MEDS ORDERED: FURO40 PO (18:10)
[2024-07-29] MEDS ORDERED: MULTIPLE VITAM1 EACH PO (18:11)
[2024-07-29] MEDS ORDERED: POTASSIUM CITR15 ME1 PO (18:12)
[2024-07-29] MEDS ORDERED: Percocet 5-3251 EACH PO (18:12)
[2024-07-29] MEDS ORDERED: VITAMIN B121000 MCG PO (18:13)
[2024-07-29] MEDS ORDERED: VITAMIN D31000 UNI1 PO (18:14)
[2024-07-29] MEDS ORDERED: BUSP5 PO (18:15)
[2024-07-29] MEDS ORDERED: Calcium Carbon500 MG PO (18:16)
== END 2024-07-29 14:15 | disposition home or self-care (01) | DRG 871 ==
LOC: ER 10:29 → MEDS 10:30 → ERHOLD 10:30 → MEDS 19:42 → ENPENDDIS 07-29 13:18 → MEDS 07-29 14:15
PROVIDERS: Student in an Organized Health Care Education/Training Program; ADMIT Internal Medicine
DX: A41.89 Other specified sepsis (principal); J96.01 Acute respiratory failure with hypoxia; N39.0 Urinary tract infection, site not specified; R65.20 Severe sepsis without septic shock; Z66 Do not resuscitate; D50.9 Iron deficiency anemia, unspecified; F41.9 Anxiety disorder, unspecified; E78.5 Hyperlipidemia, unspecified; J10.1 Influenza due to other identified influenza virus with other respiratory manifestations; M79.7 Fibromyalgia; I12.9 Hypertensive chronic kidney disease with stage 1 through stage 4 chronic kidney disease, or unspecified chronic kidney disease; N18.30 Chronic kidney disease, stage 3 unspecified; E11.22 Type 2 diabetes mellitus with diabetic chronic kidney disease; D63.1 Anemia in chronic kidney disease; G89.4 Chronic pain syndrome; I35.0 Nonrheumatic aortic (valve) stenosis; F32.A Depression, unspecified; R10.11 Right upper quadrant pain; G47.00 Insomnia, unspecified; B34.8 Other viral infections of unspecified site; B34.1 Enterovirus infection, unspecified; D69.59 Other secondary thrombocytopenia; Z96.619 Presence of unspecified artificial shoulder joint; Z88.1 Allergy status to other antibiotic agents; Z88.0 Allergy status to penicillin; Z91.048 Other nonmedicinal substance allergy status; Z88.8 Allergy status to other drugs, medicaments and biological substances; Z88.7 Allergy status to serum and vaccine; Z79.899 Other long term (current) drug therapy; Z79.891 Long term (current) use of opiate analgesic; Z85.3 Personal history of malignant neoplasm of breast; Z90.710 Acquired absence of both cervix and uterus; Z87.442 Personal history of urinary calculi; Z90.89 Acquired absence of other organs; Z98.890 Other specified postprocedural states; Z90.49 Acquired absence of other specified parts of digestive tract; Z87.891 Personal history of nicotine dependence; Z90.13 Acquired absence of bilateral breasts and nipples; Z92.3 Personal history of irradiation
CPT/HCPCS: 0202U; 36415; 71045; 76705; 80048; 80053; 81001; 82947; 83605; 83880; 84145; 85025; 85027; 85049; 87040; 87077; 87086; 87186; 93005; 93010; 94640; 94664; 94760; 96361; 96365; 96366; 96372; 96375; 96376; 97110; 97116; 97162; 97165; 97530-CO; 97535; 99285-25; A9270; G0378; J0456; J1650; J2405; J2470; J2543; J7030; J7050

== ENCOUNTER 2024-07-29 16:25 | Inpatient (IN) | payer OTHER ==
[~2024-07-29] VITALS: Ht 152.4 cm; Wt 81.2 kg
[~2024-07-29 16:25] MED LIST changes: +ESTRADIOL42.5 GM; +GUAI600T33 PO; +Tamiflu30 MG PO
[2024-07-29] MEDS ORDERED: Acetaminophen 500 MG Tab PO ONE (17:45)
[2024-07-29 18:00] LABS: BASOPHILS ABSOLUTE AUTO 0.03 K/mm3 (0.00-0.23); BASOPHILS PERCENT AUTO 0 % (0-2); EOSINOPHILS ABSOLUTE AUTO 0.02 K/mm3 (0.00-0.68); EOSINOPHILS PERCENT AUTO 0 % (0-6); Hematocrit 29.7 % (33.0-51.0); Hemoglobin 9.7 g/dL (11.5-16.0); IMMATURE GRAN ABSOLUTE AUTO 0.11 K/mm3 (0.00-0.10); IMMATURE GRAN PERCENT AUTO 1 % (0-1); LYMPHOCYTES ABSOLUTE AUTO 0.67 K/mm3 (0.84-5.20); LYMPHOCYTES PERCENT AUTO 8 % (21-46); MONOCYTES ABSOLUTE AUTO 0.72 K/mm3 (0.16-1.47); MONOCYTES PERCENT AUTO 9 % (4-13); Mean Corpuscular HGB 30.9 pg (26.0-34.0); Mean Corpuscular HGB Conc 32.7 g/dL (31.5-36.5); Mean Corpuscular Volume 95 fL (80-100); Mean Platelet Volume 10.2 fL (9.1-12.4); NEUTROPHILS ABSOLUTE AUTO 6.79 K/mm3 (1.96-9.15); NEUTROPHILS PERCENT AUTO 82 % (41-73); Platelet Count 142 K/mm3 (150-400); RDW Coefficient Variation 15.9 % (11.7-14.2); RDW Standard Deviation 55.3 fL (35.1-46.3); Red Blood Cell Count 3.14 M/mm3 (3.80-5.20); White Blood Cell Count 8.34 K/mm3 (4.00-11.30)
[2024-07-29] MEDS ORDERED: BENADRYL25 MG PO (18:08)
[2024-07-29] MEDS ORDERED: FERSU300 PO (18:09)
[2024-07-29] MEDS ORDERED: FURO40 PO (18:10)
[2024-07-29] MEDS ORDERED: MULTIPLE VITAM1 EACH PO (18:11)
[2024-07-29] MEDS ORDERED: POTASSIUM CITR15 ME1 PO (18:12)
[2024-07-29] MEDS ORDERED: Percocet 5-3251 EACH PO (18:12)
[2024-07-29] MEDS ORDERED: VITAMIN B121000 MCG PO (18:13)
[2024-07-29] MEDS ORDERED: VITAMIN D31000 UNI1 PO (18:14)
[2024-07-29] MEDS ORDERED: BUSP5 PO (18:15)
[2024-07-29] MEDS ORDERED: Calcium Carbon500 MG PO (18:16)
[2024-07-29 18:25] LABS: Albumin, Blood 2.8 g/dL (3.4-5.0); Albumin/Globulin Ratio 0.7 (0.8-1.8); Bilirubin, Total 0.4 mg/dL (0.1-1.0); Bun/Creatinine Ratio 11.4 (12.0-20.0); Calcium, Blood 9.8 mg/dL (8.5-10.1); Creatinine, Blood 1.58 mg/dL (0.40-1.00); Globulin, Blood 4.3 g/dL (2.2-4.0); Potassium, Blood 4.8 mmol/L (3.5-5.5); Total Protein, Blood 7.1 g/dL (6.4-8.2)
[2024-07-29] MEDS ORDERED: Azithromycin 500 MG in NS 250 ML IV ONE (19:20)
[2024-07-29] MEDS ORDERED: Ampicillin Sod/Sulbactam Sod 3 GM in NS 100 ML IV ONE (20:10)
[2024-07-29] MEDS ORDERED: OxyCODONE 5 mg/Acetamin 325 mg TABLET PO PRN (21:25)
[2024-07-29] MEDS ORDERED: Acetaminophen 500 MG Tab PO PRN (21:30)
[2024-07-29] MEDS ORDERED: Melatonin 3 MG Tab PO PRN (21:30)
[2024-07-29] MEDS ORDERED: Ipratropium/Albuterol SulF 2.5-0.5MG/3 ML Amp INH SCH (21:35)
[2024-07-29] MEDS ORDERED: Magnesium Hydroxide Conc 10 ML UDC PO PRN (21:35)
[2024-07-29] MEDS ORDERED: Lactated Ringer's 1,000 ML IV SCH (21:35)
[2024-07-29] MEDS ORDERED: FLU VACC TS2024-25(6MOS UP)/PF 45 MCG/0.5 ML SYRINGE IM ONE (21:35)
[2024-07-29 21:46] LABS: International Normalized Ratio 1.03
[2024-07-30 00:21] VITALS: BP 153/87
[2024-07-30] MEDS ORDERED: Heparin Sodium,Porcine/0.5 NS 500 ML IV SCH (01:55)
[2024-07-30] MEDS ORDERED: Furosemide 10 MG/ML 4ML Vial IV ONE (04:00)
[2024-07-30 04:31] VITALS: BP 131/64
[2024-07-30 04:54] LABS: BASOPHILS ABSOLUTE AUTO 0.02 K/mm3 (0.00-0.23); BASOPHILS PERCENT AUTO 0 % (0-2); EOSINOPHILS PERCENT AUTO 0 % (0-6); Hematocrit 29.5 % (33.0-51.0); Hemoglobin 9.4 g/dL (11.5-16.0); IMMATURE GRAN ABSOLUTE AUTO 0.14 K/mm3 (0.00-0.10); IMMATURE GRAN PERCENT AUTO 1 % (0-1); LYMPHOCYTES ABSOLUTE AUTO 0.79 K/mm3 (0.84-5.20); LYMPHOCYTES PERCENT AUTO 8 % (21-46); MONOCYTES ABSOLUTE AUTO 0.86 K/mm3 (0.16-1.47); MONOCYTES PERCENT AUTO 9 % (4-13); Mean Corpuscular HGB Conc 31.9 g/dL (31.5-36.5); Mean Corpuscular Volume 94 fL (80-100); Mean Platelet Volume 10.7 fL (9.1-12.4); NEUTROPHILS ABSOLUTE AUTO 7.95 K/mm3 (1.96-9.15); NEUTROPHILS PERCENT AUTO 82 % (41-73); Platelet Count 170 K/mm3 (150-400); RDW Coefficient Variation 15.9 % (11.7-14.2); RDW Standard Deviation 54.4 fL (35.1-46.3); Red Blood Cell Count 3.13 M/mm3 (3.80-5.20); White Blood Cell Count 9.76 K/mm3 (4.00-11.30)
[2024-07-30 05:18] LABS: Albumin, Blood 2.7 g/dL (3.4-5.0); Albumin/Globulin Ratio 0.6 (0.8-1.8); Bilirubin, Total 0.5 mg/dL (0.1-1.0); Bun/Creatinine Ratio 13.2 (12.0-20.0); Calcium, Blood 9.4 mg/dL (8.5-10.1); Creatinine, Blood 1.29 mg/dL (0.40-1.00); Globulin, Blood 4.2 g/dL (2.2-4.0); Total Protein, Blood 6.9 g/dL (6.4-8.2)
--- NOTE | 2024-07-30 05:28 | NUR ---
REVIEWED ALLERGIES AND ANTIBIOTICS WITH PHARMACIST, VERIFIED OKAY TO GIVE
[2024-07-30] MEDS ORDERED: Ampicillin Sod/Sulbactam Sod 3 GM in NS 100 ML IV SCH (06:00)
[2024-07-30] MEDS ORDERED: Insulin Regular 100 UNIT/ML 10ML Vial SC SCH (07:30)
[2024-07-30 08:15] VITALS: BP 126/59
[2024-07-30] MEDS ORDERED: Diclofenac Sodium 100 GM TUBE TOP PRN (08:45)
[2024-07-30] MEDS ORDERED: Baclofen 10 MG Tab PO SCH (09:00)
[2024-07-30] MEDS ORDERED: Lactobacil 2-S.Thermo-Bifido 1 1 Cap PO SCH (09:00)
[2024-07-30] MEDS ORDERED: Oseltamivir Phosphate 75 MG Cap PO SCH (09:00)
[2024-07-30] MEDS ORDERED: Peg 400/Hypromellose/Glycerin 15 DROP/ML BTL BOTHEYES SCH (09:00)
[2024-07-30] MEDS ORDERED: Losartan Potassium 25 MG Tab PO SCH (09:00)
[2024-07-30] MEDS ORDERED: Gabapentin 100 MG Cap PO SCH (09:00)
[2024-07-30] MEDS ORDERED: Aspirin 81 MG Chew PO SCH (09:00)
[2024-07-30] MEDS ORDERED: DULoxetine HCL 60 MG Capsule DR PO SCH (09:00)
[2024-07-30] MEDS ORDERED: GuaiFENesin 600 MG TabCR PO SCH (09:00)
[2024-07-30] MEDS ORDERED: Ezetimibe 10 MG Tab PO SCH (09:00)
[2024-07-30] MEDS ORDERED: Enoxaparin 40 MG/0.4 ML SYR SC SCH (09:00)
[2024-07-30] MEDS ORDERED: Furosemide 10 MG/ML 4ML Vial IV SCH (11:00)
[2024-07-30] MEDS ORDERED: Dose Adjust by Pharmacy XX STA ×2 (11:15→18:17)
[2024-07-30] MEDS ORDERED: Heparin Sodium 5000 Units/ML 1ML MDV IV ONE ×2 (11:20→18:15)
[2024-07-30 15:02] VITALS: BP 116/65
--- NOTE | 2024-07-30 18:45 | NUR ---
PT IS VERY EMOTIONAL T/O THE DAY, SHE IS EASILY REDIRECTABLE. SHE REPORTS THAT HER SKIN IS VERY SENSATIVE TO ANY PRESSURE DUE TO HER HX OF FIBROMYALGIA. SHE DENIES CP AND SOB. VSS. SHE CONTINUES ON HEPARIN INFUSION OF THIS NOTE. SHE HAS REQUIRED INSULIN COVERAGE T/O THE DAY. SHE DOES HAVE A POOR APPETITE HAS ATE SCANT AMOUNT OF HER TRAYS. DR ARAIZA WAS IN TO SEE PT TODAY, WE ARE AWAITING RESULTS OF ECHO AT THIS TIME. DR ARAIZA ASKS FOR STRICT I&O PT REFUSED PUREWICK DEVICE DR ARAIZA AND DR GRIFFIN AGREED THAT VIDAL WOULD BE PLACED
[2024-07-30 19:44] VITALS: BP 116/66
[2024-07-30] MEDS ORDERED: TraZODone HCl 50 MG Tab PO SCH (21:00)
[2024-07-30] MEDS ORDERED: Sennosides 8.6 MG Tab PO SCH (21:00)
[2024-07-30] MEDS ORDERED: Azithromycin 500 MG in NS 250 ML IV SCH (21:00)
[2024-07-31 00:12] VITALS: BP 100/58
[2024-07-31 01:54] LABS: Hematocrit 27.5 % (33.0-51.0); Hemoglobin 8.7 g/dL (11.5-16.0); Mean Corpuscular HGB 30.2 pg (26.0-34.0); Mean Corpuscular HGB Conc 31.6 g/dL (31.5-36.5); Mean Corpuscular Volume 96 fL (80-100); Mean Platelet Volume 10.3 fL (9.1-12.4); Platelet Count 214 K/mm3 (150-400); RDW Coefficient Variation 15.5 % (11.7-14.2); Red Blood Cell Count 2.88 M/mm3 (3.80-5.20); White Blood Cell Count 7.71 K/mm3 (4.00-11.30)
[2024-07-31 02:18] LABS: Bun/Creatinine Ratio 14.4 (12.0-20.0); Calcium, Blood 9.2 mg/dL (8.5-10.1); Creatinine, Blood 1.25 mg/dL (0.40-1.00); Potassium, Blood 3.4 mmol/L (3.5-5.5)
[2024-07-31] MEDS ORDERED: Dose Adjust by Pharmacy XX STA ×3 (02:41→19:08)
--- NOTE | 2024-07-31 02:52 | NUR ---
CALLED DR. SUAREZ REGARDING LAST TROPONIN CHECK, NO NEED FOR MORE PER PHYSICIAN.
[2024-07-31 04:34] VITALS: BP 117/66
--- NOTE | 2024-07-31 06:48 | NUR ---
PT STABLE THROUGHOUT THE SHIFT. PT AOX4, ABLE TO USE CALL LIGHT AND MAKE NEEDS KNOWN. PT TOLERATING IV HEPARIN AND IV ABX W/O PROBLEM. PT ON 4L O2 AND MAINTAINING GOOD O2 SATS. ALL VITAL SIGNS REMAIN WNL. PT WAS MEDICATED WITH PRN PAIN MEDICATION X2 WITH GOOD RESULTS. PT HAS BEEN NPO SINCE MIDNIGHT, IN CASE PT IS GOING TO ANGIO PROCEDURE ON 07/31/24 D/T ECHO RESULTS. POWER GLIDE IN RIGHT UPPER ARM FLUSHES AND DRAWS WELL. MINIMAL C/O FROM PATIENT EXCEPT FOR BACK PAIN WHICH WAS TREATED WITH THE PRN PAIN MEDICATION.
[2024-07-31] MEDS ORDERED: Albuterol 2.5 MG/3 ML VIAL INH PRN (08:20)
[2024-07-31] MEDS ORDERED: Metoprolol Succinate 25 MG TABCR PO SCH (09:00)
[2024-07-31] MEDS ORDERED: Spironolactone 25 MG Tab PO SCH (09:30)
[2024-07-31] MEDS ORDERED: Empagliflozin 10 MG TAB PO SCH (09:30)
[2024-07-31] MEDS ORDERED: Heparin Sodium 5000 Units/ML 1ML MDV IV ONE ×2 (11:10→19:10)
[2024-07-31 11:21] VITALS: BP 113/57
[2024-07-31] MEDS ORDERED: Potassium Chloride 20 MEQ/15 ML UDC PO ONE (13:00)
[2024-07-31] MEDS ORDERED: Insulin Human Lispro 100 Units/ML 3ML Syringe SC SCH (16:30)
--- NOTE | 2024-07-31 17:18 | NUR ---
PT NOTED TO HAVE APNEA AFTER METHADONE ADMINISTRATION, END TIDAL CO2 WAS PLACECD WITH 4L O2 WHICH WAS TOLERATED WELL. SHE WAKES EASILY TO VERBAL STIMULI, WE DISCUSSED THE POSSIBILITY OF PLACING BIPAP PT WAS NOT WILLING TO USE BIPAP SHE STATES THAT SHE WILL STAY AWAKE, SHE ASKS FOR SNACKS AND COFFFE. SHE IS AWAKE, A/O X4. SHE REPORTS GOOD PAIN CONTROL AT THIS TIME. LAST LITER OF NS BOLUS IS INFUSING NOW
--- NOTE | 2024-07-31 17:27 | NUR ---
PT HAS BEEN RESTING WELL IN BED W/O CP OR SOB T/O THE DAY. SHE HAS BEEN SEEN BY DR ARAIZA TODAY AND WILL BE GOING FOR ANGIO IN THE AM, SHE IS AWARE THAT SHE WILL BE NPO AT MIDNIGHT. SHE IS A/O X4, SHE IS ABLE TO MAKE NEEDS KNOWN WITHOUT ISSUE. SHE USES CALLLIGHT APPROPRIATELY. VIDAL DRAINING WELL TO GRAVITY. VSS. OXYGEN HAS BEEN TITRATED TO 1L WAS NOT ABLE TO TURN O2 OFF ENTIRELY. PT IS CHEERFUL TODAY.
[2024-07-31 18:25] VITALS: BP 114/65
[2024-07-31 21:02] VITALS: BP 125/74
[2024-08-01 00:57] VITALS: BP 113/61
[2024-08-01 01:18] LABS: Hematocrit 27.7 % (33.0-51.0); Mean Corpuscular HGB 30.5 pg (26.0-34.0); Mean Corpuscular HGB Conc 32.5 g/dL (31.5-36.5); Mean Corpuscular Volume 94 fL (80-100); Mean Platelet Volume 9.6 fL (9.1-12.4); Platelet Count 271 K/mm3 (150-400); RDW Coefficient Variation 15.4 % (11.7-14.2); RDW Standard Deviation 53.1 fL (35.1-46.3); Red Blood Cell Count 2.95 M/mm3 (3.80-5.20); White Blood Cell Count 9.18 K/mm3 (4.00-11.30)
[2024-08-01 02:11] LABS: Bun/Creatinine Ratio 14.6 (12.0-20.0); Calcium, Blood 9.2 mg/dL (8.5-10.1); Creatinine, Blood 1.23 mg/dL (0.40-1.00); Potassium, Blood 3.9 mmol/L (3.5-5.5)
[2024-08-01] MEDS ORDERED: Dose Adjust by Pharmacy XX STA ×2 (02:12→08:11)
[2024-08-01 04:10] VITALS: BP 123/64
--- NOTE | 2024-08-01 06:28 | NUR ---
PT O2 DEMAND INCREASED BACK TO 4L FROM 2L OTHERWISE PT STABLE THROUGHOUT ENTIRETY OF SHIFT. PT TOLERATING IV ABX AND IV HEPARIN INFUSION WELL. PT AOX4, COOPERATIVE, USES CALL LIGHT APPROPRIATELY AND ABLE TO MAKE NEEDS KNOWN. PT IS MILD TO MODERATELY ANXIOUS D/T UPCOMING ANGIOGRAM. VIDAL CONTINUES TO DRAIN WELL. PT RECEIVED PRN PAIN MEDICATION FOR BACK PAIN. PT HAS BEEN NPO SINCE MIDNIGHT FOR PROCEDURE. POWER GLIDE CONTINUES TO FLUSH AND DRAW WELL.
[2024-08-01 07:56] VITALS: BP 129/70
[2024-08-01 12:34] VITALS: BP 129/70
[2024-08-01 15:54] VITALS: BP 129/71
--- NOTE | 2024-08-01 16:03 | NUR ---
vital signs taken and stable. awaiting angio procedure and currently still npo. patient has call light within reach, bed in lowest position and even and unlabored respirations.
--- NOTE | 2024-08-01 17:22 | NUR ---
SHIFT SUMMARY: PATIENT IS ALERT AND ORIENTED X4 AND ACTIVE IN HER CARE. IS SATTING >92% ON 3-4 LITERS VIA NASAL CANNULA. ON TELE SHOWING SINUS WITH RATE IN 90'S. ANGIO GOT PUSHED TO TOMORORW 12.24 FOR FIRST THING IN THE AM. PATIENT WILL BE NPO AT MIDNIGHT TONIGHT 12.23. PATIENT NEEDED COVERAGE FOR BACK PAIN THROUGHOUT SHIFT AND IS AWARE OF BECOMING NPO ONCE AGAIN. PATIENT WOULD LIKE THAT IF HER GRANDDAUGHTER CALLS TO NOT LET HER KNOW SHE IS HAVING A PROCEDURE DONE. PATIENT STATES SHE WOULD NOT LIKE HER TO WORRY ANYMORE. NO EVENTS THORUGHOUT SHIFT, WILL CONTINUE TO MONITOR UNTIL HANDOFF REPORT TO ONCOMING FRUIT WASHER RN.
[2024-08-01 20:59] VITALS: BP 135/62
[2024-08-02] VITALS (11 sets, daily range): BP systolic 104–160; BP diastolic 59–84
[2024-08-02 04:54] LABS: Bun/Creatinine Ratio 14.5 (12.0-20.0); Calcium, Blood 9.6 mg/dL (8.5-10.1); Creatinine, Blood 1.45 mg/dL (0.40-1.00); Potassium, Blood 3.4 mmol/L (3.5-5.5)
[2024-08-02] MEDS ORDERED: Potassium Chloride 10 Meq Tablet SA PO ONE (05:15)
[2024-08-02 05:28] LABS: Magnesium, Blood 2.2 mg/dL (1.6-2.4)
[2024-08-02] MEDS ORDERED: NS 250 ML IV ONE (06:36)
[2024-08-02] MEDS ORDERED: NS 1,000 ML IV ONE ×2 (06:36→07:00)
[2024-08-02] MEDS ORDERED: Verapamil HCL 2.5 MG/ML 2ML Injection ONE (06:36)
[2024-08-02] MEDS ORDERED: Nitroglycerin 2 MG/20 ML BTL ONE (06:36)
[2024-08-02] MEDS ORDERED: Heparin Sodium 1000 Units/ML 10ML MDV ONE ×2 (06:36→08:40)
--- NOTE | 2024-08-02 06:41 | NUR ---
PT STABLE THROUGHOUT THE SHIFT. PT TOLERATING IV ABX WELL. HEPARIN GTT WAS D/C'D ON DAY SHIFT. PT CONTINUES TO C/O BACK PAIN AND HAS RECEIVED PRN PERCOCET THIS SHIFT FOR THAT. PRN PAIN MEDICATION APPEARS TO MANAGE PAIN WELL. PT AOX4, COOPERATIVE WITH MILD ANXIETY REGARDING UPCOMING PROCEDURE. VIDAL CONTINUES TO DRAIN WELL. POWER GLIDE FLUSHES AND DRAWS WELL. PT REMAINS ON 2-4L O2 WITH O2 DEMANDS INCREASING DURING SLEEP. PT REPORTS NO C/P OR INCREASING SOB.
[2024-08-02] MEDS ORDERED: FentaNYL Citrate 50 MCG/ML 2 ML Injection ONE (07:00)
[2024-08-02] MEDS ORDERED: Midazolam HCl 1MG / ML 2ML Vial ONE (07:00)
--- NOTE | 2024-08-02 07:18 | NUR ---
PATIENT IN PROCEDURE AT START OF SHIFT.
[2024-08-02] MEDS ORDERED: Aspirin 325 MG Tab ONE (07:19)
[2024-08-02] MEDS ORDERED: Aspirin 81 MG Chew ONE (07:22)
[2024-08-02] MEDS ORDERED: Ticagrelor 90 MG TABLET ONE (08:32)
--- NOTE | 2024-08-02 10:00 | NUR ---
MD TO BEDSIDE: BOTH MD'S TO BEDSIDE TO ROUND ON PATIENT ONCE RETURNING FROM PROCEDURE. ORDERS WILL BE PLACED FOR FLUIDS AND PATIENT STATED SHE DOES NOT FEEL STRONG ENOUGH TO GO HOME TODAY SO WILL STAY A FEW MORE DAYS UNTIL DISCHARGE.
[2024-08-02] MEDS ORDERED: NS 1,000 ML IV SCH (14:05)
--- NOTE | 2024-08-02 15:02 | NUR ---
HANDOFF REPORT: PATIENT IS ALERT AND ORIENTED X4 AND ACTIVE IN HER CARE. IS SATTING >92% ON 2-4 LITERS VIA NASAL CANNULA. ON TELE SHOWING SINUS RYTHM WITH RATE IN 90'S. PATIENT CONTINUES TO HAVE THE TR BAND ON THE RIGHT RADIAL ACCESS SITE WITH NO BLEEDING OR HEMATOMA AT SITE. CONTINUE TO REMOVE AIR FROM BAND UNTIL FULLY RECOVERED. PATIENT HAS NEEDED COVERAGE FOR PAIN PER EMAR, BLOOD SUGARS HAVE BEEN GOOD WITHOUT NEEDING COVERAGE. PATIENT IS ANXIOUS BUT IS ABLE TO EXPRESS ANY CONCERNS OR NEEDS. PLAN WILL BE TO STAY OVER THE HOLIDAY SHE STATES SHE FEELS SHE IS NOT STRONG ENOUGH TO RETURN HOME QUITE YET. WILL HANDOFF PATIENT TO [facility] ORELL[facility].
[2024-08-02] MEDS ORDERED: Ticagrelor 90 MG TABLET PO SCH (18:00)
--- NOTE | 2024-08-02 18:48 | NUR ---
NO ACUTE CHNAGE SINCE ASSUMED CARE FROM JESSE OERLLANA. PT RESTED IN BED T/O SHIFT, TR BAND ON RIGHT RADIAL FULLY RECOVERED CLEAR DRESSING IN PLACE. NS STILL INFUSNG AT 75 MLS/HR. REPOSITIONED IN BED FOR COMFORT. WILL RPEORT TO ONCOMING SHIFT
[2024-08-02] MEDS ORDERED: Estradiol Vag Cream 0.1 MG/G 42.5 GM Tube VAG SCH (21:00)
[2024-08-03] VITALS (8 sets, daily range): BP systolic 108–133; BP diastolic 51–64
[2024-08-03 04:31] LABS: Hematocrit 26.6 % (33.0-51.0); Hemoglobin 8.6 g/dL (11.5-16.0); Mean Corpuscular HGB 30.7 pg (26.0-34.0); Mean Corpuscular HGB Conc 32.3 g/dL (31.5-36.5); Mean Corpuscular Volume 95 fL (80-100); Mean Platelet Volume 9.7 fL (9.1-12.4); Platelet Count 372 K/mm3 (150-400); RDW Coefficient Variation 15.1 % (11.7-14.2); White Blood Cell Count 10.65 K/mm3 (4.00-11.30)
--- NOTE | 2024-08-03 06:32 | NUR ---
PT REMAINED STABLE THROUGHOUT SHIFT. NO C/O CP OR DYSPNEA. PT AOX4, CALM, COOPERATIVE, ABLE TO USE CALL LIGHT AND MAKE NEEDS KNOWN. PT RT RADIAL ANGIO SITE CLOSED, DRESSING IS CLEAN, DRY, INTACT, ARMBOARD IN PLACE. NO S/S BLEEDING/BRUISING/HEMATOMA FROM RT RADIAL SITE OR RT NECK SITE FROM ANGIO. PT RT NECK SITE REMAINS CLOSED AND DRESSED WITH PETROLEUM GAUZE. PT TOLERATING IV ABX WELL. PT IVF INFUSION STOPPED 12HRS AFTER RETURN FROM ANGIO PER ORDER. VIDAL REMAINS IN PLACE WITH GOOD OUTPUT. URINE YELLOW AND CLEAR. PT HAS C/O BACK PAIN AND HAS BEEN MEDICATED FOR THAT WITH GOOD RESULTS. PT REMAINS IN SINUS RHYTHM. O2 AT 4L MAINTAINS O2 SAT AT 93-97%.
[2024-08-03] MEDS ORDERED: Clopidogrel Bisulfate 300 MG Cap PO ONE (07:00)
[2024-08-03 07:03] LABS: Bun/Creatinine Ratio 13.7 (12.0-20.0); Calcium, Blood 9.8 mg/dL (8.5-10.1); Creatinine, Blood 1.31 mg/dL (0.40-1.00); Potassium, Blood 3.6 mmol/L (3.5-5.5)
[2024-08-03] MEDS ORDERED: dilTIAZem HCL 30 MG TAB PO SCH (09:30)
--- NOTE | 2024-08-03 16:57 | NUR ---
SHIFT SUMMARY THE PT IS A&OX4, CALLS APPROPRAITELY, AND CAN MAKE HER NEEDS KNOWN. SHE IS A 1-2P ASSIST FOR SHORT TRANSFERS. AT BASELINE THE PT DOES NOT AMBULATE AND USES A WHEELE CHAIR TO GET AROUND. THE PT HAS BEEN UP IN THE CHAIR THIS AFTERNOON, AND PLANS TO BE UP UNTIL AFTER DINNER. SHE DOES HAVE A VIDAL DRAINING TO GRAVITY AT THIS TIME, BUT DR. GRIFFIN WOULD LIKE THE VIDAL PULLED TODAY. THE PT GOT UP TO THE BSC WITH THE MARKETING ENGINEER AND HAD A BOWEL MOVEMENT THIS SHIFT. NO C/O N/V/D. ON TELE THE P HAS BEEN SR 70'S, BP STABLE. SHE WAS ON 4L NC AT THE BEGINNING OF THE SHIFT AND HAS BEEN TITRAITED TO 1L NC TO MAINTAIN SP02 >93%. TH PT'S ONLY COMPLAINT HAS BEEN HER LOWER BACK PAIN. SHE HAS BEEN MEDICATED PER EMAR FOR PAIN. NO ACUTE EVENTS THIS SHIFT. SHE IS MEDICAL STATUS W/ TELE AND DOES NOT HAVE A BED ASSIGNED ON MEDICAL FLOOR AT THIS TIME. SEE NOTES FOR UPDATES.
--- NOTE | 2024-08-03 19:00 | NUR ---
VIDAL REMOVED- MP MARRUFO REMOVED VIDAL CATHETER WITHOUT INCIDENT AND REPLACED WITH A PUREWICK TO SUCTION.
--- NOTE | 2024-08-03 22:17 | NUR ---
ASSUMPTION OF CARE PT LYING IN BED. ALERT AND ORIENTED TO ALL. HR SINUS RHYTHM AT RATE OF 70-80. BP STABLE. RESPIRATIONS UNLABORED. SATURATION 97% ON 1L NC, WHICH DECREASED ONCE WHEN PT TALKED. VIDAL DRAINING URINE TO GRAVITY. PT HAS CALL LIGHT HANDY.
[2024-08-04] MEDS ORDERED: Midodrine 5 MG Tab PO PRN
--- NOTE | 2024-08-04 01:02 | NUR ---
UPDATE PT C/O PAIN IN GROIN. PUREWICK REMOVED. PT TAKEN TO BSC. I BM PLUS 350 URINE. PT EXPERIENCES PAIN WITH ALL MOVEMENT. SPECIFICALLY C/O CALF PAIN X 2. NO HEAT NOTICED, ALSO PAIN ON ANTERIOR LE. WILL MONITOR. PLACED SCD'S ON BOTH CALVES TO SEE IF PAIN DECREASES.
[2024-08-04 04:26] LABS: BASOPHILS ABSOLUTE AUTO 0.05 K/mm3 (0.00-0.23); BASOPHILS PERCENT AUTO 0 % (0-2); EOSINOPHILS ABSOLUTE AUTO 0.42 K/mm3 (0.00-0.68); EOSINOPHILS PERCENT AUTO 4 % (0-6); Hematocrit 27.8 % (33.0-51.0); IMMATURE GRAN ABSOLUTE AUTO 0.54 K/mm3 (0.00-0.10); IMMATURE GRAN PERCENT AUTO 5 % (0-1); LYMPHOCYTES ABSOLUTE AUTO 1.39 K/mm3 (0.84-5.20); LYMPHOCYTES PERCENT AUTO 12 % (21-46); MONOCYTES ABSOLUTE AUTO 1.04 K/mm3 (0.16-1.47); MONOCYTES PERCENT AUTO 9 % (4-13); Mean Corpuscular HGB 30.6 pg (26.0-34.0); Mean Corpuscular HGB Conc 32.4 g/dL (31.5-36.5); Mean Corpuscular Volume 95 fL (80-100); Mean Platelet Volume 9.6 fL (9.1-12.4); NEUTROPHILS ABSOLUTE AUTO 8.31 K/mm3 (1.96-9.15); NEUTROPHILS PERCENT AUTO 71 % (41-73); Platelet Count 368 K/mm3 (150-400); RDW Coefficient Variation 15.1 % (11.7-14.2); RDW Standard Deviation 52.4 fL (35.1-46.3); Red Blood Cell Count 2.94 M/mm3 (3.80-5.20); White Blood Cell Count 11.75 K/mm3 (4.00-11.30)
[2024-08-04 04:53] LABS: Albumin, Blood 2.4 g/dL (3.4-5.0); Albumin/Globulin Ratio 0.6 (0.8-1.8); Bilirubin, Total 0.4 mg/dL (0.1-1.0); Bun/Creatinine Ratio 15.3 (12.0-20.0); Calcium, Blood 9.6 mg/dL (8.5-10.1); Creatinine, Blood 1.18 mg/dL (0.40-1.00); Globulin, Blood 4.3 g/dL (2.2-4.0); Potassium, Blood 4.1 mmol/L (3.5-5.5); Total Protein, Blood 6.7 g/dL (6.4-8.2)
[2024-08-04 05:41] VITALS: BP 134/85
--- NOTE | 2024-08-04 07:25 | NUR ---
PT LYING IN BED. ALERT AND ORIENTED TO ALL. HR SINUS RHYTHM AT RATE OF 70-80. BP STABLE. RESPIRATIONS UNLABORED. SATURATION 94% ON 2L NC, WHICH DECREASEF TWICE DURING SHIFT AND RESPONDED WELL TO SMALL, TEMPORARY INCREASE IN LPM. PT ASKED FOR PAIN MEDS TWO TIMES DURING SHIFT AND ASKED FOR ADMIN OF DICLFENAC ON HER FEET. PT HAS CALL LIGHT HANDY.
[2024-08-04 07:41] VITALS: BP 121/68
[2024-08-04] MEDS ORDERED: Clopidogrel Bisulfate 75 MG Tab PO SCH (09:00)
[2024-08-04 11:16] LABS: Acinetobacter baumannii DNA Not Detected copy/mL (NOT DETECT); Chlamydia pneumonia Not Detected (NOT DETECT); Enterobacter cloacae DNA Not Detected copy/mL (NOT DETECT); Escherichia coli DNA Not Detected copy/mL (NOT DETECT); Haemophilus influenzae DNA Not Detected copy/mL (NOT DETECT); Klebsiella aerogenes DNA Not Detected copy/mL (NOT DETECT); Klebsiella oxytoca DNA Not Detected copy/mL (NOT DETECT); Klebsiella pneumoniae DNA Not Detected copy/mL (NOT DETECT); Legionella pneumophila Not Detected (NOT DETECT); Moraxella catarrhalis DNA Not Detected copy/mL (NOT DETECT); Mycoplasma pneumoniae Not Detected (NOT DETECT); Proteus sp DNA Not Detected copy/mL (NOT DETECT); Pseudomonas aeruginosa DNA Not Detected copy/mL (NOT DETECT); Serratia marcescens DNA Not Detected copy/mL (NOT DETECT); Staphylococcus aureus DNA Not Detected copy/mL (NOT DETECT); Streptococcus agalactiae DNA Not Detected copy/mL (NOT DETECT); Streptococcus pneumoniae DNA Not Detected copy/mL (NOT DETECT); Streptococcus pyogenes DNA Not Detected copy/mL (NOT DETECT)
[2024-08-04 11:17] LABS: Adenovirus DNA Not Detected (NOT DETECT); Human Coronavirus RNA Not Detected (NOT DETECT); Human Metapneumovirus RNA Not Detected (NOT DETECT); Influenza virus A RNA Detected (NOT DETECT); Influenza virus B RNA Not Detected (NOT DETECT); Parainfluenza virus RNA Not Detected (NOT DETECT); Respiratory syncytial Vir RNA Not Detected (NOT DETECT); Rhinovirus+Enterovirus RNA Not Detected (NOT DETECT)
[2024-08-04 15:30] VITALS: BP 119/52
--- NOTE | 2024-08-04 16:46 | NUR ---
TRANSFER OF CARE/ SHIFT SUMMARY NEURO: A/OX4 T/O SHIFT. ABLE TO VERBALIZE NEEDS. PT REPORTED 8/10 BACK PAIN THAT IS CHRONIC IN NATURE, TREATING PER EMAR. CARDIO: SR, HR 70-80S, BP STABLE. PT DENIES CHEST PAIN/PRESSURE/SOB RESP: PT BETWEEN RA-2L NC AND SATTING ABOVE 88%. HAS A NONPRODUCTIVE COUGH. RA AT BASELINE. GI/: CONTINENT OF URINE AND STOOL. USING BEDSIDE COMMODE. MUSCUL: 1P SBATO AND FROM COMMODE AND CHAIR. WEAK. WHEELCHAIR BOUND AT BASELINE. INTEG: R IJ SITE AND R RADIAL SITE FOR STENT PLACEMENT. PLAN IS TO D/C TO [facility] PENDING INSURANCE AUTH. REPORT GIVEN TO TOMÁS SALGUERO RN AT 1640. PT TAKEN BY WHEELCHAIR BY AIDE WITH ALL BELONGINGS.
--- NOTE | 2024-08-04 16:50 | NUR ---
TRANSFER: PT TO ROOM 302 AT THIS TIME FROM PCU. PT DROPLET PRECAUTIONS. STATES NO PAIN OR SOB. SATS STABLE ON 2L O2 AT THIS TIME. PT HAS PERSISTENT COUGH WITH NO PRODUCTION. POOR APPETITE. ENCOURAGING FLUIDS. PT STATES SHE IS HAVING FREQUENT BM'S. 1 PERSON ASSIST TO COMMODE. IV X2 PATENT AND S.L. PT CONT TO HAVE URINARY SYMPTOMS OF DYSURIA AND URGENCY. RIGHT RADIAL SITE WITH ARMBOARD IN PLACE PER PT PREFERENCE. RIGHT IJ SITE WITH DRESSING POST STRENT. NO TELE. PT USES CALL LIGHT APPROPRIATELY NEEDED. PLAN FOR [place] AT DISCHARGE.
[2024-08-04 20:18] VITALS: BP 137/66
[2024-08-05] MEDS ORDERED: NS 250 ML IV PRN (00:45)
[2024-08-05 04:23] VITALS: BP 132/68
--- NOTE | 2024-08-05 04:57 | NUR ---
AAOX4. SBA WITH WALKER X 1 ASSIST. USES BSC WITH MINIMAL ASSIST. 2L O2 VIA NC. ACHS BLOOD GLUCOSE CHECKS WITH COVERAGE AC. POWER GLIDE TO RAC. ZITHROMAX AND UNASYN ADMIN PER OCT. PRN PERCOCET GIVEN X 1 FOR BACK PAIN.
[2024-08-05 05:49] LABS: BASOPHILS ABSOLUTE AUTO 0.08 K/mm3 (0.00-0.23); BASOPHILS PERCENT AUTO 1 % (0-2); EOSINOPHILS ABSOLUTE AUTO 0.38 K/mm3 (0.00-0.68); EOSINOPHILS PERCENT AUTO 3 % (0-6); Hematocrit 26.5 % (33.0-51.0); Hemoglobin 8.4 g/dL (11.5-16.0); IMMATURE GRAN ABSOLUTE AUTO 0.52 K/mm3 (0.00-0.10); IMMATURE GRAN PERCENT AUTO 4 % (0-1); LYMPHOCYTES ABSOLUTE AUTO 1.72 K/mm3 (0.84-5.20); LYMPHOCYTES PERCENT AUTO 13 % (21-46); MONOCYTES PERCENT AUTO 9 % (4-13); Mean Corpuscular HGB 30.3 pg (26.0-34.0); Mean Corpuscular HGB Conc 31.7 g/dL (31.5-36.5); Mean Corpuscular Volume 96 fL (80-100); NEUTROPHILS ABSOLUTE AUTO 8.99 K/mm3 (1.96-9.15); NEUTROPHILS PERCENT AUTO 70 % (41-73); Platelet Count 437 K/mm3 (150-400); RDW Coefficient Variation 14.9 % (11.7-14.2); RDW Standard Deviation 52.5 fL (35.1-46.3); Red Blood Cell Count 2.77 M/mm3 (3.80-5.20); White Blood Cell Count 12.79 K/mm3 (4.00-11.30)
[2024-08-05 06:22] LABS: Albumin, Blood 2.6 g/dL (3.4-5.0); Albumin/Globulin Ratio 0.6 (0.8-1.8); Bilirubin, Total 0.2 mg/dL (0.1-1.0); Bun/Creatinine Ratio 13.2 (12.0-20.0); Calcium, Blood 10.3 mg/dL (8.5-10.1); Creatinine, Blood 1.14 mg/dL (0.40-1.00); Globulin, Blood 4.4 g/dL (2.2-4.0)
[2024-08-05] MEDS ORDERED: ASPI81CH PO (12:38)
[2024-08-05] MEDS ORDERED: CLOP75 PO (12:39)
[2024-08-05] MEDS ORDERED: JARDIANCE10 MG PO (12:39)
[2024-08-05] MEDS ORDERED: METO25ER PO (12:40)
[2024-08-05] MEDS ORDERED: SPIR25 PO (12:40)
[2024-08-05] MEDS ORDERED: MELA3 PO (12:40)
--- NOTE | 2024-08-05 13:17 | NUR ---
PT RESTING QUIETLY AT START OF SHIFT. WOKE EASILY FOR CARE. PT IMPROVING AND ABLE TO D/C BACK TO [facility]. LEDGER POSTER ASSISTING WITH D/C TRANSPORTATION. DR GRIFFIN PLACED D/C ORDERS. MEDS FAXED PER PT REQUEST. D/C INSTRUCTIONS AND MEDICATIONS REVIEWED WITH PT; VERBALIZED UNDERSTANDING. IV SITE'S D/C'D WNL'S. PT ABLE TO DRESS HERSELF WITH BECK OPERATOR ASSIST. PT TO D/C VIA W/C TRANSPORT AT 1330. ALL BELONGINGS GATHERED BY PT.
== END 2024-08-05 13:54 | disposition home or self-care (01) | DRG 853 ==
LOC: ER 16:25 → ERHOLD 21:28 → PCU 21:28 → MEDS 08-04 16:52
PROVIDERS: Family Medicine; Student in an Organized Health Care Education/Training Program; ADMIT Internal Medicine
PROC: 3E03329 Introduction of Other Anti-infective into Peripheral Vein, Percutaneous Approach (ICD-10-PCS; 2024-07-29)
PROC: 027034Z Dilation of Coronary Artery, One Artery with Drug-eluting Intraluminal Device, Percutaneous Approach (ICD-10-PCS; principal; 2024-08-02)
PROC: B2111ZZ Fluoroscopy of Multiple Coronary Arteries using Low Osmolar Contrast (ICD-10-PCS; 2024-08-02)
PROC: B240ZZ3 Ultrasonography of Single Coronary Artery, Intravascular (ICD-10-PCS; 2024-08-02)
PROC: 4A023N6 Measurement of Cardiac Sampling and Pressure, Right Heart, Percutaneous Approach (ICD-10-PCS; 2024-08-02)
DX: A41.9 Sepsis, unspecified organism (principal); I21.4 Non-ST elevation (NSTEMI) myocardial infarction; I50.33 Acute on chronic diastolic (congestive) heart failure; J96.01 Acute respiratory failure with hypoxia; J18.9 Pneumonia, unspecified organism; Z66 Do not resuscitate; I13.0 Hypertensive heart and chronic kidney disease with heart failure and stage 1 through stage 4 chronic kidney disease, or unspecified chronic kidney disease; N39.0 Urinary tract infection, site not specified; R65.20 Severe sepsis without septic shock; I35.0 Nonrheumatic aortic (valve) stenosis; I27.20 Pulmonary hypertension, unspecified; I25.10 Atherosclerotic heart disease of native coronary artery without angina pectoris; Z28.21 Immunization not carried out because of patient refusal; Z68.36 Body mass index [BMI] 36.0-36.9, adult; E11.22 Type 2 diabetes mellitus with diabetic chronic kidney disease; J11.1 Influenza due to unidentified influenza virus with other respiratory manifestations; E78.5 Hyperlipidemia, unspecified; N18.32 Chronic kidney disease, stage 3b; D63.1 Anemia in chronic kidney disease; F41.9 Anxiety disorder, unspecified; F32.A Depression, unspecified; G89.4 Chronic pain syndrome; M79.7 Fibromyalgia; E66.9 Obesity, unspecified; E87.6 Hypokalemia; G47.00 Insomnia, unspecified; Z85.3 Personal history of malignant neoplasm of breast; Z92.3 Personal history of irradiation; Z91.048 Other nonmedicinal substance allergy status; Z88.0 Allergy status to penicillin; Z88.8 Allergy status to other drugs, medicaments and biological substances; Z88.1 Allergy status to other antibiotic agents; Z88.7 Allergy status to serum and vaccine; Z79.899 Other long term (current) drug therapy; Z90.710 Acquired absence of both cervix and uterus; Z90.49 Acquired absence of other specified parts of digestive tract; Z87.442 Personal history of urinary calculi; Z79.82 Long term (current) use of aspirin
CPT/HCPCS: 36415; 51702; 71045; 76937; 80048; 80053; 82947; 83605; 83735; 83880; 84145; 84484; 85025; 85027; 85347; 85520; 85610; 85730; 87040; 87070; 87205; 87633; 93005; 93010; 93306; 93456; 93571; 94640; 94664; 94760; 94762; 96374; 97110; 97161; 97530; 99152; 99153; 99285-25; A9270; C1725; C1751; C1753; C1769; C1874; C1887; C1894; C9600; J0295; J0456; J1644; J1815; J1940; J2250; J3010; J7030; J7050; J7120; Q9967

== ENCOUNTER → 2024-08-17 | Outpatient (CLI) | payer OTHER ==
[~2024-08-17] MED LIST changes: +CLOP75 PO; +FERSU300 PO; +JARDIANCE10 MG PO; +MELA3 PO; +METO25ER PO; +MULTIPLE VITAM1 EACH PO; +SPIR25 PO; +VITAMIN B121000 MCG PO; +VITAMIN D31000 UNI1 PO
[2024-08-17 17:42] LABS: Source, Urine Clean Catch
[2024-08-17 18:35] LABS: Appearance, Urine Cloudy (Clear); Bilirubin, Urine Neg (Neg); Blood, Urine 5+ (Neg); Color, Urine Yellow (P-Yellow); Glucose Qualitative, Urine 4+ (Neg); Ketones, Urine Neg (Neg); Leukocyte Esterase, Urine 2+ (Neg); Nitrite, Urine Neg (Neg); Protein, Urine 2+ (Neg); Specific Gravity, Urine 1.015 (1.003-1.022); Urobilinogen, Urine NORM (Normal)
[2024-08-17 18:50] LABS: Bacteria Many /hpf; Red Blood Cells, Urine TNTC /hpf (0-2); Squamous Epithelial Cells Few /hpf (Few); Transitional Epithelial Cells Rare /hpf (0-Rare); White Blood Cells, Urine 25-50 /hpf (0-5); Yeast/Fungi Urine Few /hpf
== END ==
LOC: LAB 17:38 → LAB SHORT 17:38
PROVIDERS: Nurse Practitioner Family
DX: N39.0 Urinary tract infection, site not specified (principal)
CPT/HCPCS: 81001; 87086

== ENCOUNTER 2024-09-15 10:43 | Emergency (ER) | payer OTHER ==
[~2024-09-15] VITALS: Ht 157.5 cm; Wt 65.8 kg
[2024-09-15 11:17] LABS: Source, Urine Clean Catch
[2024-09-15 11:20] LABS: Appearance, Urine Cloudy (Clear); Bilirubin, Urine Neg (Neg); Blood, Urine 5+ (Neg); Color, Urine Amber (P-Yellow); Glucose Qualitative, Urine 4+ (Neg); Ketones, Urine Neg (Neg); Leukocyte Esterase, Urine 3+ (Neg); Nitrite, Urine Neg (Neg); Protein, Urine 3+ (Neg); Specific Gravity, Urine 1.015 (1.003-1.022); Urobilinogen, Urine NORM (Normal)
[2024-09-15 11:47] LABS: BASOPHILS ABSOLUTE AUTO 0.07 K/mm3 (0.00-0.23); BASOPHILS PERCENT AUTO 1 % (0-2); EOSINOPHILS ABSOLUTE AUTO 0.44 K/mm3 (0.00-0.68); EOSINOPHILS PERCENT AUTO 4 % (0-6); Hematocrit 27.5 % (33.0-51.0); Hemoglobin 8.3 g/dL (11.5-16.0); IMMATURE GRAN PERCENT AUTO 1 % (0-1); LYMPHOCYTES ABSOLUTE AUTO 1.75 K/mm3 (0.84-5.20); LYMPHOCYTES PERCENT AUTO 17 % (21-46); MONOCYTES ABSOLUTE AUTO 0.97 K/mm3 (0.16-1.47); MONOCYTES PERCENT AUTO 9 % (4-13); Mean Corpuscular HGB 29.4 pg (26.0-34.0); Mean Corpuscular HGB Conc 30.2 g/dL (31.5-36.5); Mean Corpuscular Volume 98 fL (80-100); Mean Platelet Volume 9.5 fL (9.1-12.4); NEUTROPHILS PERCENT AUTO 68 % (41-73); Platelet Count 268 K/mm3 (150-400); RDW Standard Deviation 53.6 fL (35.1-46.3); Red Blood Cell Count 2.82 M/mm3 (3.80-5.20); White Blood Cell Count 10.33 K/mm3 (4.00-11.30)
[2024-09-15 11:48] LABS: Red Blood Cells, Urine TNTC /hpf (0-2); White Blood Cells, Urine TNTC /hpf (0-5)
[2024-09-15 11:49] LABS: Bacteria Few /hpf; Squamous Epithelial Cells Few /hpf (Few); Transitional Epithelial Cells Rare /hpf (0-Rare)
[2024-09-15 11:56] LABS: Alanine Aminotransfer (ALT/SGP 15 U/L (12-78); Albumin, Blood 3.5 g/dL (3.4-5.0); Albumin/Globulin Ratio 0.9 (0.8-1.8); Alk Phos 93 U/L (50-136); Anion Gap 9 mmol/L (3-11); Aspartate Aminotrans (AST/SGOT 11 U/L (12-37); Bilirubin, Total 0.2 mg/dL (0.1-1.0); Blood Urea Nitrogen 36 mg/dL (8-24); Bun/Creatinine Ratio 21.8 (12.0-20.0); CO2, Blood 25 mmol/L (21-32); Calcium, Blood 9.9 mg/dL (8.5-10.1); Chloride, Blood 109 mmol/L (98-108); Creatinine, Blood 1.65 mg/dL (0.40-1.00); Glomerular Filtration Rate 32 (60-); Glucose, Blood 222 mg/dL (70-99); Potassium, Blood 4.6 mmol/L (3.5-5.5); Sodium, Blood 138 mmol/L (136-145); Total Protein, Blood 7.5 g/dL (6.4-8.2)
[2024-09-15] MEDS ORDERED: Fosfomycin Tromethamine 3 GM Packet PO ONE (14:55)
[2024-09-15] MEDS ORDERED: Phenazopyridine HCl 100 MG Tab PO ONE (14:55)
[2024-09-15] MEDS ORDERED: NS 1,000 ML IV SCH (15:00)
[2024-09-15] MEDS ORDERED: Pyridium100 MG PO (16:13)
[2024-09-15] MEDS ORDERED: FOSFOMYCIN TROME3 G1 PO (16:13)
[2024-09-15 16:51] VITALS: BP 129/65
== END 2024-09-15 17:20 | disposition home or self-care (01) ==
LOC: ER 10:43
PROVIDERS: Student in an Organized Health Care Education/Training Program
DX: N17.9 Acute kidney failure, unspecified (principal); N39.0 Urinary tract infection, site not specified; E11.9 Type 2 diabetes mellitus without complications; E78.5 Hyperlipidemia, unspecified; I10 Essential (primary) hypertension; Z87.891 Personal history of nicotine dependence; Z79.82 Long term (current) use of aspirin; Z79.02 Long term (current) use of antithrombotics/antiplatelets; Z79.810 Long term (current) use of selective estrogen receptor modulators (SERMs); Z79.899 Other long term (current) drug therapy; Z88.1 Allergy status to other antibiotic agents; Z88.0 Allergy status to penicillin; Z91.048 Other nonmedicinal substance allergy status; Z88.5 Allergy status to narcotic agent; Z88.7 Allergy status to serum and vaccine; Z88.8 Allergy status to other drugs, medicaments and biological substances
CPT/HCPCS: 80053; 81001; 83605; 85025; 87077; 87086; 87186; 96360; 99283-25; A9270; J7030

== ENCOUNTER 2024-09-30 13:24 | Inpatient (IN) | payer OTHER ==
[~2024-09-30] VITALS: Ht 172.7 cm; Wt 79.6 kg
[~2024-09-30 13:24] MED LIST changes: +AMOCLA875 PO; +ARTHRITIS PAIN150 GM TOP; +ARTIFICIAL TEAR15 M2 BOTHEYES; +BIOFREEZE118 M1 TOP; +DICLOFENAC SODI50 GM TOP; +DIPH25 PO; +Estrace Vagin42.5 GM VAG; +HYDHCL25 PO; +LOPE2C PO; +NITROFURANTOIN25 MG PO; +NYSTATIN15 GM TOP; +PREGABALIN100 MG PO; +Triamcinolone A15 G4 TOP; +VISBIOME 112.51 EACH PO; +VISINE RED EYE H8 ML BOTHEYES; +Voltaren100 GM TOP
[2024-09-30 14:15] LABS: BASOPHILS ABSOLUTE AUTO 0.08 K/mm3 (0.00-0.23); BASOPHILS PERCENT AUTO 1 % (0-2); EOSINOPHILS ABSOLUTE AUTO 0.36 K/mm3 (0.00-0.68); EOSINOPHILS PERCENT AUTO 4 % (0-6); Hematocrit 26.2 % (33.0-51.0); IMMATURE GRAN ABSOLUTE AUTO 0.27 K/mm3 (0.00-0.10); IMMATURE GRAN PERCENT AUTO 3 % (0-1); LYMPHOCYTES ABSOLUTE AUTO 1.58 K/mm3 (0.84-5.20); LYMPHOCYTES PERCENT AUTO 16 % (21-46); MONOCYTES ABSOLUTE AUTO 1.31 K/mm3 (0.16-1.47); MONOCYTES PERCENT AUTO 14 % (4-13); Mean Corpuscular HGB 28.9 pg (26.0-34.0); Mean Corpuscular HGB Conc 30.5 g/dL (31.5-36.5); Mean Corpuscular Volume 95 fL (80-100); Mean Platelet Volume 9.7 fL (9.1-12.4); NEUTROPHILS PERCENT AUTO 63 % (41-73); Platelet Count 280 K/mm3 (150-400); RDW Coefficient Variation 15.8 % (11.7-14.2); RDW Standard Deviation 55.5 fL (35.1-46.3); Red Blood Cell Count 2.77 M/mm3 (3.80-5.20)
[2024-09-30 14:26] LABS: Albumin, Blood 3.5 g/dL (3.4-5.0); Albumin/Globulin Ratio 0.8 (0.8-1.8); Bilirubin, Total 0.2 mg/dL (0.1-1.0); Bun/Creatinine Ratio 21.1 (12.0-20.0); Calcium, Blood 9.9 mg/dL (8.5-10.1); Creatinine, Blood 2.85 mg/dL (0.40-1.00); Globulin, Blood 4.3 g/dL (2.2-4.0); Potassium, Blood 5.3 mmol/L (3.5-5.5); Total Protein, Blood 7.8 g/dL (6.4-8.2)
[2024-09-30 14:55] LABS: Source, Urine Fem Cath
[2024-09-30 15:04] LABS: Appearance, Urine Turbid (Clear); Bilirubin, Urine Neg (Neg); Blood, Urine 4+ (Neg); Color, Urine Yellow (P-Yellow); Glucose Qualitative, Urine 2+ (Neg); Ketones, Urine Neg (Neg); Leukocyte Esterase, Urine 3+ (Neg); Nitrite, Urine Neg (Neg); Protein, Urine 4+ (Neg); Specific Gravity, Urine 1.015 (1.003-1.022); Urobilinogen, Urine NORM (Normal)
[2024-09-30 15:10] LABS: White Blood Cells, Urine TNTC /hpf (0-5)
[2024-09-30 15:11] LABS: Bacteria Many /hpf; Red Blood Cells, Urine TNTC /hpf (0-2); Renal Epithelial Rare /hpf (0-Rare); Squamous Epithelial Cells Not Seen /hpf (Few); Transitional Epithelial Cells Few /hpf (0-Rare)
[2024-09-30] MEDS ORDERED: Lactated Ringer's 1,000 ML IV ONE (15:50)
[2024-09-30] MEDS ORDERED: Ondansetron HCl 2 MG / ML 2ML Vial IV PRN (17:55)
[2024-09-30] MEDS ORDERED: FLU VACC TS2024-25(6MOS UP)/PF 45 MCG/0.5 ML SYRINGE IM ONE (17:55)
[2024-09-30] MEDS ORDERED: NS 1,000 ML IV SCH (18:00)
[2024-09-30] MEDS ORDERED: OxyCODONE 5 mg/Acetamin 325 mg TABLET PO ONE (18:00)
[2024-09-30] MEDS ORDERED: OxyCODONE 5 mg/Acetamin 325 mg TABLET PO PRN (18:45)
[2024-09-30] MEDS ORDERED: Piperacillin/Tazobactam Sod 2.25 GM in NS 50 ML IV ONE (18:45)
[2024-09-30 19:52] VITALS: BP 113/72
[2024-09-30] MEDS ORDERED: SPIR25 PO (20:08)
[2024-09-30] MEDS ORDERED: Lactobacil 2-S.Thermo-Bifido 1 1 Cap PO SCH (21:00)
[2024-09-30] MEDS ORDERED: Piperacillin/Tazobactam Sod 2.25 GM in NS 50 ML IV SCH (22:00)
[2024-10-01] MEDS ORDERED: Piperacillin/Tazobactam Sod 2.25 GM in NS 50 ML IV SCH
[2024-10-01 02:48] VITALS: BP 96/42
--- NOTE | 2024-10-01 05:53 | NUR ---
SHIFT SUMMARY PT ARRIVED FROM ED AT 194. ORIENTED TO ROOM. A&Ox3 AND PLEASANT. PT C/O FLANK PAIN AND PAIN WITH URINATION. MEDICATED PER EMAR WITH GOOD EFFECT. IV ABX GIVEN PER EMAR. PT ON 2L OF OXYGEN T/O NIGHT. PT UP OFTEN TO BSC TO VOID. URINE MILKY IN APPERANCE. MEPALEX PLACED ON COCCYX FOR PROTECTION. VSS BUT BP SOFT. BED IN LOWEST POSITION AND CALL LIGHT IN REACH.
[2024-10-01 06:53] LABS: BASOPHILS ABSOLUTE AUTO 0.07 K/mm3 (0.00-0.23); BASOPHILS PERCENT AUTO 1 % (0-2); EOSINOPHILS PERCENT AUTO 6 % (0-6); Hematocrit 26.3 % (33.0-51.0); Hemoglobin 7.8 g/dL (11.5-16.0); IMMATURE GRAN ABSOLUTE AUTO 0.18 K/mm3 (0.00-0.10); IMMATURE GRAN PERCENT AUTO 2 % (0-1); LYMPHOCYTES ABSOLUTE AUTO 1.24 K/mm3 (0.84-5.20); LYMPHOCYTES PERCENT AUTO 14 % (21-46); MONOCYTES ABSOLUTE AUTO 1.04 K/mm3 (0.16-1.47); MONOCYTES PERCENT AUTO 11 % (4-13); Mean Corpuscular HGB 28.4 pg (26.0-34.0); Mean Corpuscular HGB Conc 29.7 g/dL (31.5-36.5); Mean Corpuscular Volume 96 fL (80-100); Mean Platelet Volume 9.7 fL (9.1-12.4); NEUTROPHILS ABSOLUTE AUTO 6.06 K/mm3 (1.96-9.15); NEUTROPHILS PERCENT AUTO 67 % (41-73); Platelet Count 250 K/mm3 (150-400); RDW Coefficient Variation 15.9 % (11.7-14.2); RDW Standard Deviation 54.8 fL (35.1-46.3); Red Blood Cell Count 2.75 M/mm3 (3.80-5.20); White Blood Cell Count 9.09 K/mm3 (4.00-11.30)
[2024-10-01 07:28] LABS: Magnesium, Blood 2.6 mg/dL (1.6-2.4)
[2024-10-01 07:29] LABS: Albumin, Blood 3.1 g/dL (3.4-5.0); Albumin/Globulin Ratio 0.8 (0.8-1.8); Bilirubin, Total 0.2 mg/dL (0.1-1.0); Bun/Creatinine Ratio 20.9 (12.0-20.0); Calcium, Blood 9.6 mg/dL (8.5-10.1); Creatinine, Blood 2.58 mg/dL (0.40-1.00); Potassium, Blood 5.4 mmol/L (3.5-5.5); Total Protein, Blood 7.1 g/dL (6.4-8.2)
[2024-10-01] MEDS ORDERED: Insulin Human Lispro 100 Units/ML 3ML Syringe SC SCH (07:30)
[2024-10-01 07:37] VITALS: BP 87/48
[2024-10-01] MEDS ORDERED: Clopidogrel Bisulfate 75 MG Tab PO SCH (09:00)
[2024-10-01] MEDS ORDERED: Aspirin 81 MG Chew PO SCH (09:00)
[2024-10-01] MEDS ORDERED: Heparin Sodium 5000 Units/ML 1ML MDV SC SCH (09:00)
--- NOTE | 2024-10-01 11:02 | NUR ---
THIS RN NOTIFIED DURING AM ROUND ABOUT PT'S LOW BP. PT ASYMPTOMATIC. ORDER RECEIVED FOR MIDODRINE. EMAR UPDATED.
[2024-10-01 11:56] VITALS: BP 108/72
[2024-10-01] MEDS ORDERED: Sodium Bicarbonate 650 MG Tab PO SCH (13:00)
[2024-10-01] MEDS ORDERED: Midodrine 5 MG Tab PO SCH (14:00)
[2024-10-01] MEDS ORDERED: OLANZapine 10 MG Vial IM PRN (14:30)
--- NOTE | 2024-10-01 14:46 | NUR ---
1415 up to commode per pts request. pt angry asks that iv be pulled "because I am going home" pt states "my grandkids are sitting in the corner and here to take me home" attempted to re orient pt to surroundings and told by this Rn that no one else is in room. pt with increasing agitation and requests her own clothing be put on. pts home clothing is wet , pt allowed to put on own clothing due to increasing agitation. pt states "are you stupid get the fuck out of my room" pt requests nurse in charge.charger Pennie Arevalo in to speak with pt. pt with unsteady gait when getting out of bed. pts RN returned from lunch and in room to speak with patient
--- NOTE | 2024-10-01 15:17 | NUR ---
THIS RN NOTIFIED AT APPROX 1430 OF PT BECOMING AGITATED W/ STAFF. PT PICKED UP THE TRASH CAN AND THREW IT AT THIS RN WHILE THIS RN WAS ASSISTING PT BACK TO BED FROM THE BSC. PT WAS YELLING AND NOT COOPERATIVE W/ CARE. PT BEGAN HALLUCINATING STATING THAT HER GRANDDAUGHTER WAS IN THE ROOM HIDING UNDER THE BED. THIS RN NOTIFIED PRINCIPAL JAVA DEVELOPER JOSÉ MIGUEL. NEW ORDER RECEIVED TO ADMINISTER IM ZYPREXA. PRINCIPAL JAVA DEVELOPER ADMINISTERED DOSE. PT UP IN CHAIR W/ CHAIR ALARM AT THIS TIME.
[2024-10-01] MEDS ORDERED: Calcium Carbonate 500 MG Tab Chew PO PRN (15:50)
[2024-10-01] MEDS ORDERED: BusPIRone HCl 5 MG Tab PO PRN (15:50)
[2024-10-01] MEDS ORDERED: Diclofenac Sodium 100 GM TUBE TOP PRN (16:00)
--- NOTE | 2024-10-01 18:31 | NUR ---
SHIFT SUMMARY PT A&O2-3, CONFUSED, AND IMPULSIVE AT TIMES, VSS, AMB W/ ASSIST TO THE BSC, TOLERATING PO, VOIDING, AND PAIN MANAGED PER EMAR. PT AGIATED AND AXIOUS T/O SHIFT THAT WAS MEDICATED, SEE PREVIOUS NOTE. PT REMAINS ON 2L O2 NC AND NS INFUSING PER EMAR. CHAIR ALARM ON FOR SAFETY. CALL LIGHT PLACED WITHIN REACH.
[2024-10-01] MEDS ORDERED: DULoxetine HCL 60 MG Capsule DR PO SCH (21:00)
[2024-10-01] MEDS ORDERED: Gabapentin 100 MG Cap PO SCH (21:00)
[2024-10-01 21:11] VITALS: BP 121/56
[2024-10-01] MEDS ORDERED: Acetaminophen 325 MG TABLET PO PRN (23:25)
[2024-10-02 03:57] VITALS: BP 123/57
--- NOTE | 2024-10-02 04:49 | NUR ---
ORIENTED TO SELF AND PLACE. COOPERATIVE WITH CARES. INCONTINENT OF URINE. PERCOCET AND TYLENOL GIVEN FOR 9/10 PAIN IN PELVIC/BACK AREA. ENCOURAGED FLUIDS.
[2024-10-02 07:39] VITALS: BP 140/46
[2024-10-02] MEDS ORDERED: ZINC OXIDE/PETROLATUM, YELLOW 1 APPLIC/71 GM PASTE TOP SCH (08:00)
[2024-10-02] MEDS ORDERED: Cyanocobalamin 500 MCG Tab PO SCH (09:00)
[2024-10-02 11:54] LABS: BASOPHILS ABSOLUTE AUTO 0.05 K/mm3 (0.00-0.23); BASOPHILS PERCENT AUTO 1 % (0-2); EOSINOPHILS ABSOLUTE AUTO 0.25 K/mm3 (0.00-0.68); EOSINOPHILS PERCENT AUTO 3 % (0-6); Hematocrit 24.7 % (33.0-51.0); Hemoglobin 7.4 g/dL (11.5-16.0); IMMATURE GRAN ABSOLUTE AUTO 0.14 K/mm3 (0.00-0.10); IMMATURE GRAN PERCENT AUTO 2 % (0-1); LYMPHOCYTES ABSOLUTE AUTO 0.95 K/mm3 (0.84-5.20); LYMPHOCYTES PERCENT AUTO 11 % (21-46); MONOCYTES ABSOLUTE AUTO 1.06 K/mm3 (0.16-1.47); MONOCYTES PERCENT AUTO 13 % (4-13); Mean Corpuscular HGB 28.4 pg (26.0-34.0); Mean Corpuscular Volume 95 fL (80-100); Mean Platelet Volume 9.3 fL (9.1-12.4); NEUTROPHILS ABSOLUTE AUTO 5.85 K/mm3 (1.96-9.15); NEUTROPHILS PERCENT AUTO 71 % (41-73); NRBC ABSOLUTE 0.02 K/mm3 (0.00-0.02); NRBC Auto 0.2 /100 WBC (0.0-0.2); Platelet Count 250 K/mm3 (150-400); RDW Coefficient Variation 15.9 % (11.7-14.2); RDW Standard Deviation 54.8 fL (35.1-46.3); Red Blood Cell Count 2.61 M/mm3 (3.80-5.20)
[2024-10-02 12:13] LABS: Albumin, Blood 2.9 g/dL (3.4-5.0); Albumin/Globulin Ratio 0.7 (0.8-1.8); Bilirubin, Total 0.2 mg/dL (0.1-1.0); Bun/Creatinine Ratio 20.4 (12.0-20.0); Calcium, Blood 9.2 mg/dL (8.5-10.1); Creatinine, Blood 2.3 mg/dL (0.40-1.00); Potassium, Blood 5.1 mmol/L (3.5-5.5); Total Protein, Blood 6.9 g/dL (6.4-8.2)
[2024-10-02] MEDS ORDERED: TraZODone HCl 50 MG Tab PO PRN (13:45)
[2024-10-02 14:37] VITALS: BP 110/34
--- NOTE | 2024-10-02 14:56 | NUR ---
SHIFT SUMMARY PT RESTING QUIETLY AWAKE, DURING SHIFT REPORT. READMISSION FROM [place] FOR MADHAVI AND UTI; UPDATE GIVEN TO [facility] STAFF THIS AM. PT INCONTINENT OF BOWEL AND BLADDER. TASHA AREA BECOMING EXCORIATED WITH CLEANING; PURE WICK PLACED. URINE REMAINS VERY CLOUDY AND FOUL SMELLING. PT RECEIVING IV ABX AND IVF'S. TEMP INCREASED THIS AFTERNOON; SEE CHART. TYLENOL GIVEN PER EMAR. DR LITTLE IN THIS AM TO SEE PT AND DISCUSS PLAN OF CARE. PT TO REMAIN ON IVF'S AND IV ABX AT LEAST ONE MORE DAY. PT REPORTED NEUROPATHY IN LE'S. REFUSED LOVENOX. AC ONLY CBG CK'S; NO COVERAGE NEEDED TO PRESENT. PT HAS BEEN QUIET AND CO-OP WITH FLAT AFFECT. DENIES FURTHER NEEDS AT THIS TIME. CALL LT IN REACH.
[2024-10-02 15:23] VITALS: BP 122/56
[2024-10-02 19:27] VITALS: BP 118/56
[2024-10-03 03:53] VITALS: BP 111/50
--- NOTE | 2024-10-03 04:35 | NUR ---
DOUBLE NEEDLE OPERATOR LOCKSTITCH SUMMARY: READMISSION FROM [place] FOR MADHAVI AND UTI. DNR. PT A&O X4, HX OF DEMENTIA. MAKES NEEDS KNOWN. PURE WICK IN PLACED, BUT THEN REMOVED FOR MULTIPLE INCONTINNET BOWEL MOVEMENTS/ DISCOMFORT. NO ADVERSE SIDE EFFECTS TO IV ABX NOTED. MEDICATED X2 TIMES WITH PRN PERCOCET PER EMAR ORDER FOR BACK PAIN; EFFECTIVE. TURN SCHEDULE IN PLACE Q2 HRS. CALL LIGHT IN REACH. BED IN LOWEST POSITION. CARES ONGOING ORDRERED.
[2024-10-03 05:51] LABS: BASOPHILS ABSOLUTE AUTO 0.04 K/mm3 (0.00-0.23); BASOPHILS PERCENT AUTO 1 % (0-2); EOSINOPHILS ABSOLUTE AUTO 0.15 K/mm3 (0.00-0.68); EOSINOPHILS PERCENT AUTO 2 % (0-6); Hematocrit 25.3 % (33.0-51.0); Hemoglobin 7.6 g/dL (11.5-16.0); IMMATURE GRAN ABSOLUTE AUTO 0.14 K/mm3 (0.00-0.10); IMMATURE GRAN PERCENT AUTO 2 % (0-1); LYMPHOCYTES ABSOLUTE AUTO 0.91 K/mm3 (0.84-5.20); LYMPHOCYTES PERCENT AUTO 11 % (21-46); MONOCYTES ABSOLUTE AUTO 0.96 K/mm3 (0.16-1.47); MONOCYTES PERCENT AUTO 12 % (4-13); Mean Corpuscular HGB 28.4 pg (26.0-34.0); Mean Corpuscular Volume 94 fL (80-100); Mean Platelet Volume 9.2 fL (9.1-12.4); NEUTROPHILS ABSOLUTE AUTO 6.06 K/mm3 (1.96-9.15); NEUTROPHILS PERCENT AUTO 73 % (41-73); Platelet Count 274 K/mm3 (150-400); RDW Coefficient Variation 15.8 % (11.7-14.2); RDW Standard Deviation 54.4 fL (35.1-46.3); Red Blood Cell Count 2.68 M/mm3 (3.80-5.20); White Blood Cell Count 8.26 K/mm3 (4.00-11.30)
[2024-10-03 06:16] LABS: Bun/Creatinine Ratio 17.8 (12.0-20.0); Calcium, Blood 9.2 mg/dL (8.5-10.1); Creatinine, Blood 2.08 mg/dL (0.40-1.00); Potassium, Blood 4.9 mmol/L (3.5-5.5)
[2024-10-03 07:19] VITALS: BP 116/55
--- NOTE | 2024-10-03 09:00 | NUR ---
pt sitting up in chair for breakfast, a/ox4, forgetful, lungs are clear a bit dim in bases, on r/a, resp evena and unlabored, no cough noted, hrr, no edema noted, ppp+1, cap refill< 3 sec, vs stable, afebrile, piv to lfa site is clear and patent, btx4, abd flat soft nontender, voids via bsc and has briefs in place, skin has mepilex to coccyx for prevention, otherwise c/w/d, neha, weak, jonnie, call light in reach.
[2024-10-03] MEDS ORDERED: NS 1,000 ML IV SCH (13:20)
[2024-10-03] MEDS ORDERED: Estradiol Vag Cream 0.1 MG/G 42.5 GM Tube VAG SCH (14:00)
[2024-10-03 15:23] VITALS: BP 140/56
--- NOTE | 2024-10-03 19:00 | NUR ---
pt up to chair for meals, rectal area is very tender, looks like excoration, zinc ointment applied as ordered, she is weak, has a tremor, one person assist to transfer, medicated for pain several times, had a soft bm today, no further changes this shift. call light in reach.
[2024-10-03 19:35] VITALS: BP 146/58
[2024-10-04 02:32] VITALS: BP 150/62
[2024-10-04 05:00] LABS: BASOPHILS ABSOLUTE AUTO 0.05 K/mm3 (0.00-0.23); BASOPHILS PERCENT AUTO 1 % (0-2); EOSINOPHILS ABSOLUTE AUTO 0.33 K/mm3 (0.00-0.68); EOSINOPHILS PERCENT AUTO 5 % (0-6); Hematocrit 23.2 % (33.0-51.0); IMMATURE GRAN PERCENT AUTO 3 % (0-1); LYMPHOCYTES ABSOLUTE AUTO 1.02 K/mm3 (0.84-5.20); LYMPHOCYTES PERCENT AUTO 14 % (21-46); MONOCYTES ABSOLUTE AUTO 1.12 K/mm3 (0.16-1.47); MONOCYTES PERCENT AUTO 16 % (4-13); Mean Corpuscular HGB 27.5 pg (26.0-34.0); Mean Corpuscular HGB Conc 30.2 g/dL (31.5-36.5); Mean Corpuscular Volume 91 fL (80-100); Mean Platelet Volume 9.4 fL (9.1-12.4); NEUTROPHILS ABSOLUTE AUTO 4.39 K/mm3 (1.96-9.15); NEUTROPHILS PERCENT AUTO 62 % (41-73); NRBC ABSOLUTE 0.02 K/mm3 (0.00-0.02); NRBC Auto 0.3 /100 WBC (0.0-0.2); Platelet Count 270 K/mm3 (150-400); RDW Coefficient Variation 15.9 % (11.7-14.2); RDW Standard Deviation 53.5 fL (35.1-46.3); Red Blood Cell Count 2.55 M/mm3 (3.80-5.20); White Blood Cell Count 7.11 K/mm3 (4.00-11.30)
[2024-10-04 05:33] LABS: Bun/Creatinine Ratio 15.3 (12.0-20.0); Creatinine, Blood 1.76 mg/dL (0.40-1.00); Potassium, Blood 4.3 mmol/L (3.5-5.5)
--- NOTE | 2024-10-04 06:07 | NUR ---
FISH HEADER SUMMARY: PT A&O X4, FORGETFUL. MAKES NEEDS KNONW. MEDICATED PER EMAR ORDERS FOR PELVIC PAIN; EFFECTIVE. ZINC OINTMENT APPLIED ORDERED TO TASHA AREA. NO ACUTE EVENTS OVERNIGHT. INDEPENDENT WITH BED MOBILITY. CALL LIGHT IN REACH. CARES CONTINUE ORDERED.
[2024-10-04 07:45] VITALS: BP 108/45
[2024-10-04 12:30] LABS: Hematocrit 26.5 % (33.0-51.0); Hemoglobin 8.1 g/dL (11.5-16.0)
[2024-10-04] MEDS ORDERED: MIDO5 PO (14:47)
[2024-10-04] MEDS ORDERED: SODBIC650 PO (14:47)
[2024-10-04 14:50] VITALS: BP 133/53
--- NOTE | 2024-10-04 18:46 | NUR ---
SHIFT SUMMARY PATIENT ALERT AND INTERACTIVE BUT EASILY AGITATED. PATIENT WANTING TO GO HOME BUT FACILITY UNABLE TO TAKE PATIENT BACK THIS AFTERNOON. DISCHARGE ORDERS PLACED. PATIENT ABLE TO AMBULATE WITH WALKER FROM CHAIR TO BED AND TO COMMODE WITH MINIMAL ASSISTANCE. RECTUM SORE. PATIENT NOTED TO HAVE HEMORROIDS. POSITIONING PROVIDED AND PILLOW PLACED WHEN SITTING UP IN CHAIR. CREAM APPLIED TO RECTUM ORDERED.
[2024-10-04 20:33] VITALS: BP 153/60
[2024-10-05 02:10] VITALS: BP 145/61
--- NOTE | 2024-10-05 06:31 | NUR ---
SHIFT SUMMARY PT ALERT AND ORIENTED TIMES 2-3 . PT ADMITTED FOR MADHAVI.. PT IS STAND BY ASSIST TO BEDSIDE COMMODE. PT URINE IS SLIGHT PINK A TIMES WITH MINIMUM VOID. PT IS RECEPTIVE TO CARE. PT APPEARS TO HAVE SLEPT ON AND OFF. PT REQUESTED PAIN MEDICATION TWICE DURING THE NIGHT. PT AWAITING DISCHARGE THIS MORNING TO [place]. BED IN LOW POSITION, CALL LIGHT WITHIN REACH, RAILS TIMES 2.
[2024-10-05 07:54] VITALS: BP 100/42
--- NOTE | 2024-10-05 11:40 | NUR ---
SHIFT SUMMARY AND DISCHARGE PATIENT ALERT AND INTERACTIVE. PATIENT EAGER TO GET HOME TO HER CATS. PATIENT EASILY TEARFUL AND VERBALIZING FRUSTRATION. DISCHARGE INSTRUCTIONS SENT TO FACILITY. IV REMOVED AND PATIENT TRANSPORTED BACK TO FACILITY.
== END 2024-10-05 11:37 | disposition home or self-care (01) | DRG 683 ==
LOC: ER 13:24 → MEDS 17:41
PROVIDERS: Emergency Medicine; Internal Medicine; Nurse Practitioner Acute Care; ADMIT Internal Medicine
DX: N17.9 Acute kidney failure, unspecified (principal); E87.21 Acute metabolic acidosis; F01.54 Vascular dementia, unspecified severity, with anxiety; I50.22 Chronic systolic (congestive) heart failure; I13.0 Hypertensive heart and chronic kidney disease with heart failure and stage 1 through stage 4 chronic kidney disease, or unspecified chronic kidney disease; F01.53 Vascular dementia, unspecified severity, with mood disturbance; Z66 Do not resuscitate; G89.4 Chronic pain syndrome; D50.9 Iron deficiency anemia, unspecified; M79.7 Fibromyalgia; E78.5 Hyperlipidemia, unspecified; M85.80 Other specified disorders of bone density and structure, unspecified site; I35.0 Nonrheumatic aortic (valve) stenosis; E11.22 Type 2 diabetes mellitus with diabetic chronic kidney disease; Z96.0 Presence of urogenital implants; Z96.611 Presence of right artificial shoulder joint; E11.42 Type 2 diabetes mellitus with diabetic polyneuropathy; I25.10 Atherosclerotic heart disease of native coronary artery without angina pectoris; N30.20 Other chronic cystitis without hematuria; N18.32 Chronic kidney disease, stage 3b; I95.9 Hypotension, unspecified; E66.9 Obesity, unspecified; Z91.048 Other nonmedicinal substance allergy status; Z88.8 Allergy status to other drugs, medicaments and biological substances; Z88.7 Allergy status to serum and vaccine; Z88.1 Allergy status to other antibiotic agents; Z79.899 Other long term (current) drug therapy; Z79.891 Long term (current) use of opiate analgesic; Z79.82 Long term (current) use of aspirin; Z79.2 Long term (current) use of antibiotics; Z87.442 Personal history of urinary calculi; Z90.13 Acquired absence of bilateral breasts and nipples; Z90.710 Acquired absence of both cervix and uterus; Z90.89 Acquired absence of other organs; Z90.49 Acquired absence of other specified parts of digestive tract; Z87.59 Personal history of other complications of pregnancy, childbirth and the puerperium; Z98.890 Other specified postprocedural states; Z87.891 Personal history of nicotine dependence; Z85.3 Personal history of malignant neoplasm of breast; Z95.5 Presence of coronary angioplasty implant and graft; Z68.27 Body mass index [BMI] 27.0-27.9, adult
CPT/HCPCS: 36415; 51701; 51798; 74176; 80048; 80053; 81001; 82550; 82947; 83605; 83690; 83735; 85014; 85018; 85025; 87040; 87086; 87106; 93005; 93010; 94760; 96360-59; 99285-25; A9270; J1644; J2543; J7030; J7120

== ENCOUNTER 2024-10-06 12:52 | Inpatient (IN) | payer OTHER ==
[~2024-10-06] VITALS: Ht 165.1 cm; Wt 79.5 kg
[~2024-10-06 12:52] MED LIST changes: +MIDO5 PO; +SODBIC650 PO
[2024-10-06 14:34] LABS: BASOPHILS ABSOLUTE AUTO 0.08 K/mm3 (0.00-0.23); BASOPHILS PERCENT AUTO 0 % (0-2); EOSINOPHILS ABSOLUTE AUTO 0.14 K/mm3 (0.00-0.68); EOSINOPHILS PERCENT AUTO 1 % (0-6); Hematocrit 23.8 % (33.0-51.0); Hemoglobin 7.3 g/dL (11.5-16.0); IMMATURE GRAN ABSOLUTE AUTO 0.38 K/mm3 (0.00-0.10); IMMATURE GRAN PERCENT AUTO 2 % (0-1); LYMPHOCYTES ABSOLUTE AUTO 1.18 K/mm3 (0.84-5.20); LYMPHOCYTES PERCENT AUTO 5 % (21-46); MONOCYTES ABSOLUTE AUTO 1.99 K/mm3 (0.16-1.47); MONOCYTES PERCENT AUTO 9 % (4-13); Mean Corpuscular HGB Conc 30.7 g/dL (31.5-36.5); Mean Corpuscular Volume 91 fL (80-100); Mean Platelet Volume 9.4 fL (9.1-12.4); NEUTROPHILS ABSOLUTE AUTO 19.52 K/mm3 (1.96-9.15); NEUTROPHILS PERCENT AUTO 84 % (41-73); Platelet Count 342 K/mm3 (150-400); RDW Coefficient Variation 16.1 % (11.7-14.2); RDW Standard Deviation 53.6 fL (35.1-46.3); Red Blood Cell Count 2.61 M/mm3 (3.80-5.20); White Blood Cell Count 23.29 K/mm3 (4.00-11.30)
[2024-10-06 14:57] LABS: Albumin, Blood 3.1 g/dL (3.4-5.0); Albumin/Globulin Ratio 0.7 (0.8-1.8); Bilirubin, Total 0.4 mg/dL (0.1-1.0); Calcium, Blood 9.9 mg/dL (8.5-10.1); Creatinine, Blood 3.09 mg/dL (0.40-1.00); Globulin, Blood 4.6 g/dL (2.2-4.0); Potassium, Blood 5.4 mmol/L (3.5-5.5); Total Protein, Blood 7.7 g/dL (6.4-8.2)
[2024-10-06] MEDS ORDERED: NS 1,000 ML IV SCH ×3 (15:05→18:10)
[2024-10-06 16:50] LABS: CORONAVIRUS COVID-19 AG Negative (NEGATIVE); INFLUENZA A AG Negative (NEGATIVE); INFLUENZA B AG Negative (NEGATIVE)
[2024-10-06] MEDS ORDERED: FLU VACC TS2024-25(6MOS UP)/PF 45 MCG/0.5 ML SYRINGE IM ONE (18:05)
[2024-10-06] MEDS ORDERED: LORazepam 2 MG/ML 1ML Injection IV PRN (18:10)
[2024-10-06] MEDS ORDERED: Ondansetron HCl 2 MG / ML 2ML Vial IV PRN (18:10)
[2024-10-06 18:20] LABS: Source, Urine Straight Cath
[2024-10-06] MEDS ORDERED: NS 1,000 ML IV ONE (18:31)
[2024-10-06 18:32] LABS: Appearance, Urine Cloudy (Clear); Bilirubin, Urine Neg (Neg); Blood, Urine 5+ (Neg); Color, Urine Yellow (P-Yellow); Glucose Qualitative, Urine 2+ (Neg); Ketones, Urine Neg (Neg); Leukocyte Esterase, Urine 3+ (Neg); Nitrite, Urine Neg (Neg); Protein, Urine 3+ (Neg); Urobilinogen, Urine NORM (Normal)
[2024-10-06 18:36] LABS: Base Excess Venous -7.5 mmol/L; Bicarbonate Venous 18.5 mmol/L (24.0-30.0); PCO2 Venous 47.7 mmHg (38-42); pH Blood Venous 7.23 (7.34-7.37)
[2024-10-06 18:40] LABS: White Blood Cells, Urine TNTC /hpf (0-5)
[2024-10-06 18:42] LABS: Bacteria Many /hpf; Red Blood Cells, Urine 25-50 /hpf (0-2); Squamous Epithelial Cells Not Seen /hpf (Few)
[2024-10-06] MEDS ORDERED: NS 1,000 ML BAG IR ONE (18:50)
[2024-10-06] MEDS ORDERED: Sodium Bicarb 8.4% Inj 100 MEQ in Sodium Chloride 0.45% 1,000 ML IV SCH (18:50)
[2024-10-06 18:58] LABS: Bun/Creatinine Ratio 12.2 (12.0-20.0); Calcium, Blood 8.7 mg/dL (8.5-10.1); Creatinine, Blood 2.88 mg/dL (0.40-1.00); Potassium, Blood 4.6 mmol/L (3.5-5.5)
[2024-10-06 19:17] LABS: Percent Saturation 4.6 % (15.0-50.0)
[2024-10-06] MEDS ORDERED: Sodium Bicarbonate 650 MG Tab PO SCH (21:00)
[2024-10-06 22:25] VITALS: BP 113/66
[2024-10-06] MEDS ORDERED: FentaNYL Citrate 50 MCG/ML 2 ML Injection IV ONE (22:55)
[2024-10-06] MEDS ORDERED: Midodrine 5 MG Tab PO ONE (22:55)
[2024-10-07] VITALS (7 sets, daily range): BP systolic 98–150; BP diastolic 42–67
[2024-10-07] MEDS ORDERED: Piperacillin/Tazobactam Sod 2.25 GM in NS 50 ML IV SCH
[2024-10-07] MEDS ORDERED: OxyCODONE 5 mg/Acetamin 325 mg TABLET PO PRN (00:25)
[2024-10-07 00:30] LABS: Base Excess Venous -7.3 mmol/L; Bicarbonate Venous 19.1 mmol/L (24.0-30.0); PCO2 Venous 29.4 mmHg (38-42); pH Blood Venous 7.39 (7.34-7.37)
[2024-10-07] MEDS ORDERED: oxyBUTYnin chloride 5 MG TAB PO SCH (02:00)
[2024-10-07] MEDS ORDERED: LORazepam 1 MG Tab PO ONE (02:00)
--- NOTE | 2024-10-07 04:41 | NUR ---
UPON ADMISSION, PT COMPLAINING OF SEVERE 10/10 PAIN IN ABDOMEN. MD NOTIFIED, ORDER FOR VIDAL PLACEMENT. UPON PLACEMENT, BRIGHT RED BLOOD AND CLOTS PRESENT. MD NOTIFIED. ORDER FOR CBI OBTAINED. MD WANTED MANUAL IRRIGATION UNTIL CLEAR FIRST. PERFORMED. RAN CLEAR. PT STARTED ON BLADDER SPASM MEDICATION, PER MD ORDER, WITH SOME PAIN RELIEF.
[2024-10-07] MEDS ORDERED: NS 500 ML IV SCH (04:50)
[2024-10-07] MEDS ORDERED: FentaNYL Citrate 50 MCG/ML 2 ML Injection IV PRN (06:35)
[2024-10-07] MEDS ORDERED: Acetaminophen 325 MG TABLET PO PRN (06:35)
[2024-10-07] MEDS ORDERED: OxyCODONE HCL 5 MG TAB PO PRN (06:35)
--- NOTE | 2024-10-07 06:37 | NUR ---
PRBC TRANSFUSION STARTED, PER MD ORDER.
[2024-10-07] MEDS ORDERED: Clopidogrel Bisulfate 75 MG Tab PO SCH (09:00)
[2024-10-07] MEDS ORDERED: Aspirin 81 MG Chew PO SCH (09:00)
[2024-10-07] MEDS ORDERED: Heparin Sodium 5000 Units/ML 1ML MDV SC SCH (09:00)
[2024-10-07 10:24] LABS: BASOPHILS ABSOLUTE AUTO 0.05 K/mm3 (0.00-0.23); BASOPHILS PERCENT AUTO 0 % (0-2); EOSINOPHILS ABSOLUTE AUTO 0.15 K/mm3 (0.00-0.68); EOSINOPHILS PERCENT AUTO 1 % (0-6); Hematocrit 26.4 % (33.0-51.0); Hemoglobin 8.3 g/dL (11.5-16.0); IMMATURE GRAN ABSOLUTE AUTO 0.24 K/mm3 (0.00-0.10); IMMATURE GRAN PERCENT AUTO 2 % (0-1); LYMPHOCYTES ABSOLUTE AUTO 0.44 K/mm3 (0.84-5.20); LYMPHOCYTES PERCENT AUTO 3 % (21-46); MONOCYTES ABSOLUTE AUTO 1.06 K/mm3 (0.16-1.47); MONOCYTES PERCENT AUTO 7 % (4-13); Mean Corpuscular HGB 28.1 pg (26.0-34.0); Mean Corpuscular HGB Conc 31.4 g/dL (31.5-36.5); Mean Corpuscular Volume 90 fL (80-100); Mean Platelet Volume 9.2 fL (9.1-12.4); NEUTROPHILS ABSOLUTE AUTO 14.09 K/mm3 (1.96-9.15); NEUTROPHILS PERCENT AUTO 88 % (41-73); Platelet Count 300 K/mm3 (150-400); RDW Coefficient Variation 15.5 % (11.7-14.2); RDW Standard Deviation 50.6 fL (35.1-46.3); Red Blood Cell Count 2.95 M/mm3 (3.80-5.20); White Blood Cell Count 16.03 K/mm3 (4.00-11.30)
[2024-10-07 11:00] LABS: Albumin, Blood 2.7 g/dL (3.4-5.0); Albumin/Globulin Ratio 0.7 (0.8-1.8); Bilirubin, Total 0.6 mg/dL (0.1-1.0); Bun/Creatinine Ratio 14.4 (12.0-20.0); Creatinine, Blood 2.02 mg/dL (0.40-1.00); Globulin, Blood 4.1 g/dL (2.2-4.0); Potassium, Blood 4.4 mmol/L (3.5-5.5); Total Protein, Blood 6.8 g/dL (6.4-8.2)
--- NOTE | 2024-10-07 17:14 | NUR ---
SHIFT SUMMARY: PATIENT A/OX3, ANXIOUS, FORGETFUL AND SOME CONFUSION AT TIMES BUT EASILY REORIENTATED. PATIENT HAS VISIBLE TREMORS TO BUE'S. PATIENT REPORTS PAIN TO BACK/PELVIS AND ABDOMEN, MEDICATED PER EMAR c MOD EFFECT. PATIENT RECEIVED 1 UNIT PRBC THIS SHIFT. PATIENT DENIES CP/PRESSURE, SOB, N/V AND DIZZINESS. PATIENT CURRENTLY ON 2L O2, SATTING 94-96%. PATIENT HAS POOR APPETITE, VIDAL IN PLACED FOR ACUTE RETENTION, PATENT DRAINING SLIGHT PINKISH TO CLOUDY MILKY YELLOW c MOD SEDIMENTS IN URINE. PATIENT RECEIVED IV ABX/SCHEDULED MEDS PER EMAR. PATIENT HAS PIV TO L WRIST INFUSING NA BICARB AT 125 MLS/HR. VITAL SIGNS REVIEWED. BED ALARM ON FOR SAFETY. CALL LIGHT IN REACH.
[2024-10-07] MEDS ORDERED: DiphenhydrAMINE HCL 25 MG Cap PO PRN (18:35)
[2024-10-07] MEDS ORDERED: Docusate Sodium 100 MG Cap PO PRN (18:35)
[2024-10-07] MEDS ORDERED: Bisacodyl 10 MG Supp PR PRN (18:40)
[2024-10-07] MEDS ORDERED: Calcium Carbonate 500 MG Tab Chew PO PRN (18:40)
[2024-10-07] MEDS ORDERED: BusPIRone HCl 5 MG Tab PO PRN (18:40)
[2024-10-07] MEDS ORDERED: Nystatin 100,000 Unit/GM CREAM 15 GM TOP PRN (18:55)
[2024-10-07] MEDS ORDERED: Triamcinolone Acet 0.5% Cream 15 gm TOP PRN (19:00)
[2024-10-07] MEDS ORDERED: Lactobacil 2-S.Thermo-Bifido 1 1 Cap PO SCH (21:00)
[2024-10-07] MEDS ORDERED: DULoxetine HCL 60 MG Capsule DR PO SCH (21:00)
[2024-10-07] MEDS ORDERED: Gabapentin 100 MG Cap PO SCH (21:00)
[2024-10-07] MEDS ORDERED: TraZODone HCl 50 MG Tab PO SCH (21:00)
[2024-10-07] MEDS ORDERED: Ezetimibe 10 MG Tab PO SCH (21:00)
[2024-10-07] MEDS ORDERED: Diclofenac Sodium 100 GM TUBE TOP SCH (21:00)
[2024-10-08] VITALS (7 sets, daily range): BP systolic 97–150; BP diastolic 50–60
[2024-10-08] MEDS ORDERED: Empagliflozin 10 MG TAB PO SCH (09:00)
[2024-10-08] MEDS ORDERED: Cyanocobalamin 500 MCG Tab PO SCH (09:00)
[2024-10-08] MEDS ORDERED: Cholecalciferol 1000 Unit Tablet (=25MCG) PO SCH (09:00)
[2024-10-08] MEDS ORDERED: Multivitamins/Minerals TAB PO SCH (09:00)
[2024-10-08] MEDS ORDERED: Metoprolol Succinate 25 MG TABCR PO SCH (09:00)
[2024-10-08] MEDS ORDERED: Midodrine 5 MG Tab PO SCH (09:00)
[2024-10-08 13:32] LABS: Albumin, Blood 2.4 g/dL (3.4-5.0); Albumin/Globulin Ratio 0.6 (0.8-1.8); Bilirubin, Total 0.4 mg/dL (0.1-1.0); Bun/Creatinine Ratio 14.3 (12.0-20.0); Calcium, Blood 8.4 mg/dL (8.5-10.1); Creatinine, Blood 1.68 mg/dL (0.40-1.00); Globulin, Blood 4.2 g/dL (2.2-4.0); Potassium, Blood 4.2 mmol/L (3.5-5.5); Total Protein, Blood 6.6 g/dL (6.4-8.2)
--- NOTE | 2024-10-08 16:15 | NUR ---
SHIFT SUMMARY: PATIENT A/OX3, CALM, PLEASANT AND COOPERATIVE. PATIENT MEDICATED X1 FOR PAIN TO BACK/PELVIS PER EMAR c GOOD EFFECT. PATIENT WORK c PT TODAY, RECOMMENDING [facility]. PATIENT SAT UP TO CHAIR FOR ABOUT 4 HRS, TOLERATED WELL. PATIENT HAS MOD APPETITE, VIDAL IN PLACED FOR ACUTE RETENTION, PATENT DRAINING YELLOW SLIGHTLY MILKY/CLOUDY c MOD SEDIMENTS IN URINE. PATIENT RECEIVED SCHEDULED IV ABX/MEDS PER EMAR. VITAL SIGNS REVIEWED. BED ALARM ON FOR SAFETY. CALL LIGHT IN REACH.
--- NOTE | 2024-10-08 18:40 | NUR ---
ADDITIONAL NOTE: PATIENT PLACED ON RA AROUND NOON, SATTING 94-95%, DENIES SOB. PATIENT RECEIVED BEDBATH AND LINEN CHANGED THIS SHIFT. BED ALARM ON FOR SAFETY. CALL LIGHT IN REACH.
[2024-10-09] MEDS ORDERED: Piperacillin/Tazobactam Sod 2.25 GM in NS 50 ML IV SCH
[2024-10-09 05:38] LABS: BASOPHILS ABSOLUTE AUTO 0.03 K/mm3 (0.00-0.23); BASOPHILS PERCENT AUTO 0 % (0-2); EOSINOPHILS ABSOLUTE AUTO 0.12 K/mm3 (0.00-0.68); EOSINOPHILS PERCENT AUTO 1 % (0-6); Hematocrit 25.1 % (33.0-51.0); Hemoglobin 7.6 g/dL (11.5-16.0); IMMATURE GRAN ABSOLUTE AUTO 0.14 K/mm3 (0.00-0.10); IMMATURE GRAN PERCENT AUTO 1 % (0-1); LYMPHOCYTES ABSOLUTE AUTO 0.66 K/mm3 (0.84-5.20); LYMPHOCYTES PERCENT AUTO 4 % (21-46); MONOCYTES ABSOLUTE AUTO 0.84 K/mm3 (0.16-1.47); MONOCYTES PERCENT AUTO 6 % (4-13); Mean Corpuscular HGB 27.6 pg (26.0-34.0); Mean Corpuscular HGB Conc 30.3 g/dL (31.5-36.5); Mean Corpuscular Volume 91 fL (80-100); Mean Platelet Volume 9.7 fL (9.1-12.4); NEUTROPHILS ABSOLUTE AUTO 13.46 K/mm3 (1.96-9.15); NEUTROPHILS PERCENT AUTO 88 % (41-73); Platelet Count 281 K/mm3 (150-400); RDW Coefficient Variation 15.8 % (11.7-14.2); RDW Standard Deviation 52.7 fL (35.1-46.3); Red Blood Cell Count 2.75 M/mm3 (3.80-5.20); White Blood Cell Count 15.25 K/mm3 (4.00-11.30)
[2024-10-09 06:11] LABS: Albumin, Blood 2.3 g/dL (3.4-5.0); Albumin/Globulin Ratio 0.6 (0.8-1.8); Bilirubin, Total 0.5 mg/dL (0.1-1.0); Bun/Creatinine Ratio 14.8 (12.0-20.0); Calcium, Blood 8.5 mg/dL (8.5-10.1); Creatinine, Blood 1.69 mg/dL (0.40-1.00); Potassium, Blood 3.8 mmol/L (3.5-5.5); Total Protein, Blood 6.3 g/dL (6.4-8.2)
[2024-10-09 07:18] VITALS: BP 108/55
[2024-10-09] MEDS ORDERED: Spironolactone 25 MG Tab PO SCH (09:00)
[2024-10-09 13:35] VITALS: BP 117/68
[2024-10-09 14:41] LABS: Hematocrit 30.1 % (33.0-51.0); Hemoglobin 9.2 g/dL (11.5-16.0)
[2024-10-09 14:56] VITALS: BP 128/49
[2024-10-09 17:01] VITALS: BP 131/57
--- NOTE | 2024-10-09 17:44 | NUR ---
SHIFT SUMMARY: PATIENT A/OX3, PLEASANT AND COOPERATIVE c CARE. PATIENT MEDICATED X1 FOR ANXIETY AND X1 FOR PAIN TO BACK/PELVIS c GOOD EFFECT. PATIENT HAS EPISODE OF CRYING, STATED "I AM READY TO GO HOME, BUT I KNOW THAT [facility] WOULD NOT ACCEPT ME ON THE WEEKEND. I AM HOPING THAT I CAN GO TOMORROW BECAUSE I REALLY MISSED MY CATS." PATIENT SAT UP TO CHAIR FOR ABOUT 5 HRS THIS SHIFT, TOLERATED WELL. PATIENT ON RA DURING THE DAY, BUT NEEDING O2 AT HS. THIS RN SPOKE TO DR. SORTO DURING PATIENT ROUNDING THIS AM. PER DR. SORTO SHE WILL ORDERED SLEEP STUDY TONIGHT. PATIENT VIDAL IN PLACED FOR ACUTE RETENTION, PATENT DRAINING, CLOUDY YELLOW c SEDIMENTS IN URINE. PATIENT RECEIVED SCHEDULED MEDS PER EMAR. VITAL SIGNS REVIEWED. CALL LIGHT IN REACH.
[2024-10-09 20:38] VITALS: BP 99/87
[2024-10-10 03:58] VITALS: BP 104/53
--- NOTE | 2024-10-10 05:27 | NUR ---
SHIFT SUMMARY: KEVEN IS A&OX3, EASILY REDIRECTABLE. VSS, NO ACUTE EVENTS OVERNIGHT. OVERNIGHT SLEEP OXIMETRY IN PLACE, PT HAS NOT SLEPT MUCH THUS FAR TONIGHT SO DECISION WAS MADE TO LEAVE MONITOR IN PLACE LONGER IN AN ATTEMPT TO COLLECT COMPLETE DATA SET. PT WAS ON 1L VIA NC, BUT REQUIRED O2 TO BE INCREASED PER SATS. SHE IS TOELRATING PO INTAKE WELL. SHE DID COMPLAIN OF NAUSEA AT THE BEGINNING OF THE SHIFT WHICH SHE STATED RESOLVED AFTER RECEIVING A DOSE OF ZOFRAN. PT REPORTS ADEQUATE PAIN MANAGEMENT WITH MEDICATIONS PER OCT. ATTENDS IN PLACE, PT DID HAVE A SMALL BOWEL MOVEMENT AT THE BEGINNING OF THE SHIFT. SHE IS LYING IN BED WITH THE CALL LIGHT IN REACH, BED ALARM ON FOR SAFETY; PT HAS NOT BEEN IMPULSIVE THIS SHIFT. BED IN LOWEST POSITION. WILL GIVE REPORT TO DAY SHIFT RN.
[2024-10-10 09:12] VITALS: BP 117/55
[2024-10-10 09:42] LABS: BASOPHILS ABSOLUTE AUTO 0.02 K/mm3 (0.00-0.23); BASOPHILS PERCENT AUTO 0 % (0-2); EOSINOPHILS PERCENT AUTO 2 % (0-6); Hemoglobin 8.1 g/dL (11.5-16.0); IMMATURE GRAN ABSOLUTE AUTO 0.08 K/mm3 (0.00-0.10); IMMATURE GRAN PERCENT AUTO 1 % (0-1); LYMPHOCYTES ABSOLUTE AUTO 0.78 K/mm3 (0.84-5.20); LYMPHOCYTES PERCENT AUTO 8 % (21-46); MONOCYTES ABSOLUTE AUTO 0.85 K/mm3 (0.16-1.47); MONOCYTES PERCENT AUTO 8 % (4-13); Mean Corpuscular HGB 27.5 pg (26.0-34.0); Mean Corpuscular Volume 92 fL (80-100); Mean Platelet Volume 9.8 fL (9.1-12.4); NEUTROPHILS ABSOLUTE AUTO 8.25 K/mm3 (1.96-9.15); NEUTROPHILS PERCENT AUTO 81 % (41-73); Platelet Count 294 K/mm3 (150-400); RDW Coefficient Variation 15.8 % (11.7-14.2); RDW Standard Deviation 52.8 fL (35.1-46.3); Red Blood Cell Count 2.95 M/mm3 (3.80-5.20); White Blood Cell Count 10.18 K/mm3 (4.00-11.30)
[2024-10-10 10:42] LABS: Albumin, Blood 2.2 g/dL (3.4-5.0); Albumin/Globulin Ratio 0.5 (0.8-1.8); Bilirubin, Total 0.5 mg/dL (0.1-1.0); Bun/Creatinine Ratio 12.6 (12.0-20.0); Calcium, Blood 9.3 mg/dL (8.5-10.1); Creatinine, Blood 1.43 mg/dL (0.40-1.00); Globulin, Blood 4.4 g/dL (2.2-4.0); Potassium, Blood 3.8 mmol/L (3.5-5.5); Total Protein, Blood 6.6 g/dL (6.4-8.2)
[2024-10-10 13:53] VITALS: BP 120/56
--- NOTE | 2024-10-10 16:54 | NUR ---
DC-1530 PT LEFT IN STABLE CONDITION WITH ALL BELONGINGS. REPORT CALLED TO ROSALINA AT [facility]. AMBULANCE TRANSPORT PICKED UP PT.
== END 2024-10-10 15:40 | disposition hospice, home (50) | DRG 917 ==
LOC: ER 12:52 → MEDS 18:18
PROVIDERS: Emergency Medicine; Family Medicine; Internal Medicine; Nurse Practitioner Acute Care; ADMIT Student in an Organized Health Care Education/Training Program
PROC: 0T9B70Z Drainage of Bladder with Drainage Device, Via Natural or Artificial Opening (ICD-10-PCS; principal; 2024-10-06)
PROC: 30233N1 Transfusion of Nonautologous Red Blood Cells into Peripheral Vein, Percutaneous Approach (ICD-10-PCS; 2024-10-07)
DX: T40.601A Poisoning by unspecified narcotics, accidental (unintentional), initial encounter (principal); G92.8 Other toxic encephalopathy; D62 Acute posthemorrhagic anemia; F01.53 Vascular dementia, unspecified severity, with mood disturbance; F01.54 Vascular dementia, unspecified severity, with anxiety; I13.0 Hypertensive heart and chronic kidney disease with heart failure and stage 1 through stage 4 chronic kidney disease, or unspecified chronic kidney disease; N17.9 Acute kidney failure, unspecified; I50.22 Chronic systolic (congestive) heart failure; F11.20 Opioid dependence, uncomplicated; R65.10 Systemic inflammatory response syndrome (SIRS) of non-infectious origin without acute organ dysfunction; Z66 Do not resuscitate; E86.0 Dehydration; G89.4 Chronic pain syndrome; I99.8 Other disorder of circulatory system; Z51.5 Encounter for palliative care; D50.9 Iron deficiency anemia, unspecified; M79.7 Fibromyalgia; E11.40 Type 2 diabetes mellitus with diabetic neuropathy, unspecified; E78.5 Hyperlipidemia, unspecified; M85.80 Other specified disorders of bone density and structure, unspecified site; E11.22 Type 2 diabetes mellitus with diabetic chronic kidney disease; I25.10 Atherosclerotic heart disease of native coronary artery without angina pectoris; D63.1 Anemia in chronic kidney disease; R33.8 Other retention of urine; I35.0 Nonrheumatic aortic (valve) stenosis; N18.30 Chronic kidney disease, stage 3 unspecified; Z96.611 Presence of right artificial shoulder joint; Z88.8 Allergy status to other drugs, medicaments and biological substances; Z88.1 Allergy status to other antibiotic agents; Z91.048 Other nonmedicinal substance allergy status; Z88.7 Allergy status to serum and vaccine; Z79.899 Other long term (current) drug therapy; Z79.82 Long term (current) use of aspirin; Z87.442 Personal history of urinary calculi; Z85.3 Personal history of malignant neoplasm of breast; Z87.440 Personal history of urinary (tract) infections; Z90.13 Acquired absence of bilateral breasts and nipples; Z90.710 Acquired absence of both cervix and uterus; Z90.49 Acquired absence of other specified parts of digestive tract; Z90.89 Acquired absence of other organs; Z87.59 Personal history of other complications of pregnancy, childbirth and the puerperium; Z98.890 Other specified postprocedural states; Z28.21 Immunization not carried out because of patient refusal; X58.XXXA Exposure to other specified factors, initial encounter
CPT/HCPCS: 36415; 36430; 71046; 76770; 80048; 80053; 81001; 82140; 82728; 82803; 83540; 83550; 83605; 83735; 85014; 85018; 85025; 86850; 86900; 86901; 86923; 87040; 87086; 87428-QW; 93005; 93010; 94760; 94762; 96360; 96361; 97110; 97161; 99285-25; A9270; J2405; J2543; J3010; J7030; P9016

== ENCOUNTER → 2024-10-12 | Outpatient (CLI) | payer OTHER ==
[2024-10-12 17:59] LABS: Source, Urine Clean Catch
[2024-10-12 18:36] LABS: Appearance, Urine Cloudy (Clear); Bilirubin, Urine Neg (Neg); Blood, Urine 5+ (Neg); Color, Urine Yellow (P-Yellow); Glucose Qualitative, Urine 4+ (Neg); Ketones, Urine Neg (Neg); Leukocyte Esterase, Urine 3+ (Neg); Nitrite, Urine Neg (Neg); Protein, Urine 3+ (Neg); Specific Gravity, Urine 1.005 (1.003-1.022); Urobilinogen, Urine NORM (Normal)
[2024-10-12 18:44] LABS: Bacteria Many /hpf; Renal Epithelial Rare /hpf (0-Rare); Squamous Epithelial Cells Few /hpf (Few); Transitional Epithelial Cells Rare /hpf (0-Rare); White Blood Cells, Urine TNTC /hpf (0-5)
== END ==
LOC: LAB 17:57 → LAB SHORT 17:57
PROVIDERS: Nurse Practitioner Family
DX: N39.0 Urinary tract infection, site not specified (principal)
CPT/HCPCS: 81001; 87077; 87086; 87186

== ENCOUNTER 2024-10-16 06:31 | Emergency (ER) | payer OTHER ==
[~2024-10-16] VITALS: Ht 152.4 cm; Wt 81.7 kg
[2024-10-16] MEDS ORDERED: Morphine Sulfate 4 MG/1 ML Injection IM ONE (06:45)
[2024-10-16] MEDS ORDERED: ACET500 PO (08:08)
[2024-10-16 08:37] VITALS: BP 124/50
== END 2024-10-16 08:53 | disposition home or self-care (01) ==
LOC: ER 06:31
DX: S70.01XA Contusion of right hip, initial encounter (principal); N13.30 Unspecified hydronephrosis; I50.9 Heart failure, unspecified; I11.0 Hypertensive heart disease with heart failure; E11.40 Type 2 diabetes mellitus with diabetic neuropathy, unspecified; E78.5 Hyperlipidemia, unspecified; Z88.1 Allergy status to other antibiotic agents; Z88.8 Allergy status to other drugs, medicaments and biological substances; Z88.7 Allergy status to serum and vaccine; Z79.899 Other long term (current) drug therapy; Z79.891 Long term (current) use of opiate analgesic; W19.XXXA Unspecified fall, initial encounter
CPT/HCPCS: 70450; 71045; 72170; 73552; 74176; 96372; 99284-25; J2270